=== PATIENT | female | born 1930 | race Caucasian/White ===

== ENCOUNTER 2017-09-22 10:40 | Emergency (ER) | payer MEDICARE ==
[2017-09-22 11:18] VITALS: BP 140/63
--- NOTE | 2017-09-22 12:12 | UC ---
Lower Extremity/Ankle HPI - HPI Summary HPI Summary: hit right great toe on a door 2 nights ago---nail is begining to lift off and some additional erythema from end of toe and back to first joint--tender to touch no warmth or streaking - History of Current Complaint Chief Complaint: UCLowerExtremity Stated Complaint: TOE INJURY Time Seen by Provider: 09/22/17 11:43 Hx Obtained From: Patient ?: No Onset/Duration: Sudden Onset, Lasting Days - 2, Still Present Severity Initially: Moderate Severity Currently: Moderate Pain Intensity: 5 Pain Scale Used: 0-10 Numeric Aggravating Factor(s): Standing, Ambulation Alleviating Factor(s): Rest, Elevation Able to Bear Weight: Yes - Allergies/Home Medications Allergies/Adverse Reactions: Allergies Allergy/AdvReac Type Severity Reaction Status Date / Time Penicillins Allergy Mild Hives Verified 09/22/17 11:18 Cephalexin [From Keflex] Allergy Unknown Unknown Verified 09/22/17 11:18 Reaction Details Lisinopril Allergy Shortness Verified 09/22/17 11:18 of Breath Sulfa Drugs AdvReac Severe CHEST PAIN Verified 09/22/17 11:18 metal Allergy Intermediate Rash Uncoded 09/22/17 11:18 nylon Allergy Mild Rash Uncoded 09/22/17 11:18 tape Allergy Mild Rash Uncoded 09/22/17 11:18 PMH/Surg Hx/FS Hx/Imm Hx Previously Healthy: No Cardiovascular History: Hypertension - Surgical History Surgical History: Yes Surgery Procedure, Year, and Place: 1946 APPENDECTOMY, [facility]. 1968 HYSTERECTOMY, [facility]. CHOLECYSTECTOMY, [facility] [place]. 2008 BILATERAL CATARACT EXTRACTION WITH IOL IMPLANTS, [facility] [place]. left rotator cuff repair 2011. 2011 LEFT SHOULDER ROTATOR CUFF REPAIR, [facility] [place]. LASER SURGERY BILATERAL EYES. 2009 EXCISION RIGHT LITTLE FINGER MUCOUS CYST, [facility] [place]. Growth removed from upper lip - Family History Known Family History: Positive: Hypertension - Social History Occupation: Retired Lives: With Family Alcohol Use: None Substance Use Type: None Smoking Status (MU): Never Smoked Tobacco Review of Systems Constitutional: Negative Skin: Other - blood blister tip of right great toe Eyes: Negative ENT: Negative Respiratory: Negative Cardiovascular: Negative Gastrointestinal: Negative Genitourinary: Negative Motor: Negative Neurovascular: Negative Musculoskeletal: Arthralgia - right great toe Neurological: Negative Psychological: Negative Is Patient Immunocompromised?: No All Other Systems Reviewed And Are Negative: Yes Physical Exam Triage Information Reviewed: Yes Appearance: Well-Appearing, No Pain Distress, Well-Nourished Vital Signs: Initial Vital Signs Temp 97.7 F 09/22/17 11:10 Pulse 71 09/22/17 11:10 Resp 18 09/22/17 11:10 BP 140/63 09/22/17 11:10 Pulse Ox 99 09/22/17 11:10 Vital Signs Reviewed: Yes Eye Exam: Normal Eyes: Positive: Conjunctiva Clear ENT Exam: Normal ENT: Positive: Normal ENT inspection, Hearing grossly normal, Pharynx normal. Negative: Nasal drainage, TMs normal, Tonsillar swelling, Trismus, Hoarse voice , Dental tenderness, Sinus tenderness Dental Exam: Normal Neck exam: Normal Neck: Positive: Supple, Nontender, No Lymphadenopathy Respiratory Exam: Normal Respiratory: Positive: Chest non-tender, Lungs clear, Normal breath sounds, No respiratory distress, No accessory muscle use Cardiovascular Exam: Normal Cardiovascular: Positive: RRR, No Murmur, Pulses Normal, Brisk Capillary Refill Musculoskeletal Exam: Normal Musculoskeletal: Positive: Strength Intact, ROM Intact, No Edema Neurological Exam: Normal Neurological: Positive: Alert, Muscle Tone Normal Psychological Exam: Normal Skin Exam: Normal Diagnostics - Radiology No standard instances Xray Interpretation: Positive (See Comments) - no displaced fracture of distal phlange right great toe Radiology Interpretation Completed By: Radiologist Lower Extremity Course/Dx - Course Course Of Treatment: post op shoe (patient refused) antibiodic,ibuprofen, dressing , follow with pcp - Differential Dx/Diagnosis Provider Diagnoses: Nondisplaced fracture distal phalange right great toe, blood blister right great toe Discharge - Discharge Plan Condition: Stable Disposition: HOME Prescriptions: Doxycycline (Monohydrate) [Doxycycline Monohydrate] 100 mg PO BID #20 cap Patient Education Materials: Toe Fracture (ED), Hypertension (ED), Nail Avulsion (ED), Warm Compress or Soak (ED) Referrals: Stephanie Maier MD [Primary Care Provider] - 1 Week
--- NOTE | 2017-09-22 12:31 | RAD ---
Indication: Right great toe injury. 3 views of the right great toe demonstrates suggestion of a nondisplaced fracture through the distal phalanx of the great toe. The proximal phalanx is unremarkable. IMPRESSION: There is suggestion of a fracture of the distal a length of the great toe.
== END 2017-09-22 12:58 | disposition home or self-care (01) ==
LOC: UCEAST 10:40
DX: S92.424A Nondisplaced fracture of distal phalanx of right great toe, initial encounter for closed fracture (principal); S90.421A Blister (nonthermal), right great toe, initial encounter; W22.09XA Striking against other stationary object, initial encounter; Y93.01 Activity, walking, marching and hiking; Y92.9 Unspecified place or not applicable
CPT/HCPCS: 99212; G0463

== ENCOUNTER 2019-02-12 09:49 | Inpatient (IN) | payer MEDICARE ==
--- NOTE | 2019-01-30 16:56 | HP ---
Amended report to enter cosigning physician. HISTORY AND PHYSICAL: DATE OF ADMISSION/SURGERY: 02/12/19 DATE OF OFFICE VISIT: 01/30/19 SURGEON: Swati Mckeon MD* (dictated by RIGO García). PROCEDURE: Left total hip arthroplasty. CHIEF COMPLAINT: Left hip pain. HISTORY OF PRESENT ILLNESS: Ms. Brady is an 89-year-old female with end-stage osteoarthritis of the left hip. She has failed conservative treatment and elected to proceed with a left total hip arthroplasty. PAST MEDICAL HISTORY: Macular degeneration, heart murmur, and a history of stroke. PAST SURGICAL HISTORY: Appendectomy, hysterectomy, cholecystectomy, and a left rotator cuff repair. CURRENT MEDICATIONS: 1. Aspirin 81 mg a day. 2. Calcium with vitamin D. 3. Travatan eye drops once a day. 4. Women's vitamins. 5. Vitamin B12. 6. Eylea injections. 7. Tylenol as needed. 8. Fiber therapy. 9. Proctosol. 10. Crestor 40 mg a day. 11. Diltiazem 120 mg a day. ALLERGIES: PENICILLIN, SULFA, KEFLEX, LISINOPRIL, METAXALONE, LATEX, TAPE. FAMILY HISTORY: Coronary artery disease, cancer, and diabetes. SOCIAL HISTORY: She is an 89-year-old female. She lives alone. She does not smoke or use drugs. REVIEW OF SYSTEMS: A complete 14-point review of systems was reviewed with the patient. It was positive for history of stroke. She denies history of DVT, PE , hepatitis, HIV, or anesthesia problems. PHYSICAL EXAMINATION GENERAL: She is well developed, well nourished, in no acute distress. VITAL SIGNS: She stands 5 feet 3 inches tall, weighs 144 pounds. Her blood pressure is 117/57, her heart rate is 73. HEENT: Normocephalic, atraumatic. NECK: Supple. No palpable lymph nodes. PULMONARY: The lungs are clear to auscultation bilaterally. CARDIO: Regular rate and rhythm. Strong S1, S2. ABDOMEN: Soft, nontender, nondistended. NEUROLOGICAL: She is alert and oriented x3. MUSCULOSKELETAL: Left lower extremity: The skin is intact. There are no open wounds or abrasions. She walks with an antalgic-type gait favoring her left hip. She has decreased internal and external rotation of the left hip. She has a 2+ dorsalis pedis pulse. She is able to dorsiflex and plantar flex and has intact sensation. ASSESSMENT AND PLAN: Ms. Brady is an 89-year-old female with end-stage osteoarthritis of the left hip. She has failed conservative treatment and elected to proceed with a left total hip arthroplasty. The surgery is scheduled for 02/12/[address] Mckeon discussed the risks and benefits of the surgery at today's visit and all of her questions were answered. No TXA will be used in this patient secondary to her history of stroke. RIGO GARCÍA [id number]/[facility] #: [id number] MTDSara
[~2019-02-12 09:49] MED LIST: Acetaminophen TAB* 325 MG PO ONE; Buffered Lidocaine 1% SYRIN* 1 ML/SYRINGE INTRADERM ONE; Famotidine IV* 10 MG/ML 2 ML (20 mg) IV ONE; Lactated Ringers 1000 ML Bag* 1,000 ML IV SCH
--- OUTSIDE RECORDS SUMMARY | 2019-02-12 09:54 | XMS REPORT | Continuity of Care Document ---
:1930 External Reference #:[id number] Author Name Allison Carpenter Care Team Providers Name Role Phone Stephanie Maier MD Primary Care Physician Unavailable Payers Date Identification Numbers Payment Provider Subscriber Effective: 2012 Policy Number: [id number] Medicare Blue Ppo Tiarra Sterling Group Number: [id number] [address] [address] PayID: [id number] [place] [id number] Expires: 2012 Policy Number: [id number] Medicare Blue Ppo Tiarra Sterling Group Number: MEDICARE BLUE PPO [address] [address] Group Name: Plan Two [place] [id number] PayID: [id number] Problems Active Problems Provider Date Benign essential hypertension Stephanie Maier M.D. Onset: 09/01/2010 Cerebral artery occlusion Stephanie Maier M.D. Onset: 09/01/2010 Localized, primary osteoarthritis Swati Mckeon M.D. Onset: 12/14/2015 Localized, primary osteoarthritis of the Swati Mckeon M.D. Onset: 12/14/2015 pelvic region and thigh Family History Date Family Member(s) Observation Comments General Heart Disease General Diabetes General Cancer General Alzheimer's Disease : (age 85 Father due to Cancer, Years) Lung : (age 93 Mother due to Years) Alzheimer's Disease First Brother due to Heart () Disease Second Brother due to Melanoma () - CAD Third Brother due to () - of Alzheimer's Disease pneumonia First Sister Breast Cancer : (age 85 Second Sister due to COPD Years) Third Sister Alive And Well Social History Type Date Description Comments Sex Unknown Marital Status Single First killed in 1970, remarried but in 1984 Lives With Alone Drives without problems. Worked at [employer] in 2009. 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 son: Cody Sterling Tobacco Use Start: Unknown Never Smoked Cigarettes ETOH Use Denies alcohol use Tobacco Use Start: Unknown Patient has never smoked Recreational Drug Use Denies Drug Use Smoking Status Reviewed: 01/31/19 Patient has never smoked Exercise Type/Frequency Exercises sporadically Allergies, Adverse Reactions, Alerts Active Allergies Reaction Severity Comments Date Penicillin HIVES Severe 10/30/2009 Sulfa CHEST PAIN Severe 10/30/2009 Keflex RASH Severe 10/30/2009 Lisinopril cough 06/19/2012 Metaxalone dizzy 02/19/2014 Latex/Tape 09/10/2018 Medications Active Medications SIG Qnty Indications Ordering Provider Date Vit B12 3 x wk Stephanie Maier, 12/20/2012 M.DCuauhtemoc Diltiazem HCL ER take one capsule 90caps R06.02 Stephanie Maier, 2011 Coated Beads by mouth once M.D. 120mg daily Caps ER 24HR Crestor Take One Tablet 90tabs Stephanie Maier, 01/01/2012 40mg Tablets By Mouth Once M.D. Daily Aspirin 1 by mouth once Stephanie Maier, 04/29/2010 81mg Tablets daily M.DCuauhtemoc [place] 600+D 1 by mouth once Stephanie Maier, 04/29/2010 daily M.D. [id number] Tablets Proctosol HC Use as directed 28.350gm Stephanie Maier, 03/01/2010 2.5% prn M.D. Cream Eq Fiber Therapy 2 in in the Unknown morning 500mg Tablets Tylenol 8 Hour 1 tab every 6 Unknown 650mg hours as needed Tablets ER for pain Eylea prn Unknown 2mg/0.05ML Solution Eye Vitamins daily Unknown Capsules One Daily For Women 1 po qd Unknown Tablets Travatan each eye nightly Unknown 0.004% Solution History Medications Tramadol HCL 1-2 tablets every 42tabs M54.9 [facility] 05/15/2018 - 50mg 6 hours as needed Katie Maier 09/09/2018 Tablets Doxycycline Hyclate one tablet twice 20caps J01.00 Chris Pereyra NP 2015 - daily for 10 07/15/2016 100mg Capsules days. Fluticasone 2 sprays each 16units J01.00 Chris Pereyra NP 07/04/2016 - Propionate nostril daily as 11/12/2018 50mcg/Act needed-not using Suspension Benzonatate take one or two 30caps J01.00 Chris Pereyra NP 07/04/2016 - 100mg capsules every 8 07/11/2016 Capsules hours as needed for cough. Levaquin 1 by mouth daily 10tabs J01.00 Starr Tian, 03/16/2016 - 500mg for 10 days N.P. 03/26/2016 Tablets Fluticasone 2 sprays each 16units J01.00 Starr Tian, 02/29/2016 - Propionate nostril daily as N.P. 03/15/2016 50mcg/Act needed Suspension Azithromycin two tabs day one, 6tabs J01.00 Starr Tian, 02/29/2016 - 250mg one daily till N.P. 03/05/2016 Tablets gone Meloxicam 1 by mouth every 60tabs M16.11 Swati Mckeon, 12/14/2015 - 15mg day M.DCuauhtemoc 02/23/2017 Tablets Lorazepam 1-2 tabs by mouth 5tabs Stephanie 09/08/2015 - 0.5mg prior to Katie Maier 12/13/2015 Tablets procedure Omeprazole 1 by mouth as 30caps R14.2 Chris Pereyra NP 08/24/2015 - 20mg needed 03/08/[address] Molina 1 by mouth every 30tabs Starr Tian, 11/17/2014 - 10mg Tablets day N.P. 01/14/2015 Ditropan XL 1 by mouth every 30tabs 788.43 Starr Tian, 11/05/2014 - 10mg day N.P. 11/17/2014 Tablets ER 24HR Metaxalone take 1 tablet 3 30tabs 724.5 Starr Tian, 2014 - 800mg times a day as N.P. 2014 Tablets needed Tizanidine HCL One po q 4 hours 30caps Starr Asmita, 2014 - 4mg prn N.P. 02/04/2014 Capsules Zolpidem Tartrate 1/2-1 po tablet 30tabs 780.52 [facility] 06/20/2013 - 5mg at bedtime as Katie Maier 2014 Tablets needed Zostavax 1 dose s/c 1units [facility] 03/28/2012 - Solution Katie Maier 06/18/2012 Rec Diltiazem HCL ER Take One Capsule 30caps 786.05 [facility] 02/13/2012 - By Mouth Once Katie Maier 06/19/2012 180mg Caps ER 24HR Daily Atorvastatin Calcium 1 po qd 90tabs [facility] 09/21/2011 - Katie Maier 01/01/2012 40mg Tablets Diltiazem CD 1 PO qd 30caps 786.05 [facility] 05/17/2011 - 180mg Katie Maier 02/13/2012 Caps ER 24HR Lisinopril 1 tablet once 30tabs 786.05 Stephanie - 10mg daily Katie Maier 05/17/2011 Tablets Cipro 1 tablet twice a 20tabs Unknown - 500mg Tablets day 10/28/2010 Crestor Take One Tablet 30tabs [facility] - 40mg Tablets By Mouth AT Katie Maier 09/21/2011 Bedtime Aleve 1 po prn 60caps Unknown - 220mg Capsules 06/19/2012 Flonase Allergy 2 sprays each Unknown - Relief nostril once 08/24/2015 50mcg/Act daily Suspension Medications Administered in Office Medication SIG Qnty Indications Ordering Provider Date Depomedrol 40MG Swati Mckeon M.D. 11/19/2018 Injection Inj, Regadenoson, 0.1 MG Deshawn Zhou DO [facility] 09/11/2015 Injection Inj, Regadenoson, 0.1 MG RIGO Hooker 09/11/2015 Injection Technetium TC 99M Deshawn Zhou DO [facility] 09/11/2015 Tetrofosmin, Per Unit Dose Up To 40 Millicuries Injection Technetium TC 99M RIGO Hooker 09/11/2015 Tetrofosmin, Per Unit Dose Up To 40 Millicuries Injection Immunizations CPT Code Status Date Vaccine Lot # [id number] Given 06/05/2018 Influenza Virus Vaccine, Quadrivalent, Split, Preservative Free 62071 Given 05/11/2017 Influenza Virus Vaccine, Quadrivalent, Split, [id number] Preservative Free 96669 Given 06/17/2016 Influ Virus Vaccine, Quadrivalent, Split Virus, [id number] [address] Given 06/13/2015 Influenza Virus Vaccine, Quadrivalent, Split, [id number] Preservative Free 72505 Given 02/24/2015 Pneumococcal Conjugate Vaccine 13 Valent For [id number] Intramuscular Use 65507 Given 06/17/2014 Influenza Virus Vaccine, Quadrivalent, Split, [id number] Preservative Free 68459 Given 06/20/2013 Flu Vaccine Split Virus Preservative Free For [id number] Indiv 3Yr Older [id number] Given 05/30/2012 Fluzone Vaccine 65408 Given 03/29/2012 Zoster (Zostavax) [id number] Given 05/17/2011 Afluria Vaccine [id number] 08663 Given 07/09/2010 Influenza Virus 3Yrs & Over [id number] 57125 Given 04/27/2009 Influenza Virus 3Yrs & Over 40531 Given 06/25/2008 Influenza Virus 3Yrs & Over 73297 Given 06/25/2008 Influenza Virus 3Yrs & Over 65807 Given 06/28/2007 Influenza Virus 3Yrs & Over Vital Signs Date Vital Result Comment 01/31/2019 8:40am Height 63 inches 5'3" Weight 144.00 lb Heart Rate 73 /min BP Systolic Sitting 133 mmHg BP Diastolic Sitting 66 mmHg O2 % BldC Oximetry 97 % BMI (Body Mass Index) 25.5 kg/m2 01/30/2019 9:00am Height 63 inches 5'3" Weight 144.00 lb Heart Rate 73 /min BP Systolic 116 mmHg BP Diastolic 57 mmHg Body Temperature 97.7 F BMI (Body Mass Index) 25.5 kg/m2 2019 2:55pm Height 63 inches 5'3" Weight 144.00 lb with shoes Heart Rate 70 /min BP Systolic 140 mmHg Rue reg cuff BP Diastolic 60 mmHg Rue reg cuff BP Systolic Sitting 134 mmHg Lue reg cuff BP Diastolic Sitting 62 mmHg Lue reg cuff BP Systolic Standing 132 mmHg Lue reg cuff BP Diastolic Standing 60 mmHg Lue reg cuff Respiratory Rate 15 /min BMI (Body Mass Index) 25.5 kg/m2 Ejection Fraction 65-70% date 12/20/18 ECHO 12/05/2018 11:14am Height 63 inches 5'3" Heart Rate 66 /min BP Systolic Sitting 150 mmHg BP Diastolic Sitting 66 mmHg Pain Level 5 O2 % BldC Oximetry 95 % 11/19/2018 2:47pm Height 63 inches 5'3" Weight 145.00 lb BP Systolic 132 mmHg BP Diastolic 60 mmHg Body Temperature 98.2 F Pain Level 6 BMI (Body Mass Index) 25.7 kg/m2 11/12/2018 2:38pm Height 62.5 inches 5'2.50" Weight 142.38 lb Heart Rate 76 /min BP Systolic 132 mmHg BP Diastolic 65 mmHg Body Temperature 97.9 F O2 % BldC Oximetry 97 % BMI (Body Mass Index) 25.6 kg/m2 09/10/2018 1:40pm Height 62.5 inches 5'2.50" Weight 145.00 lb Heart Rate 76 /min BP Systolic 130 mmHg BP Diastolic 76 mmHg BMI (Body Mass Index) 26.1 kg/m2 08/23/2018 8:52am Height 63 inches 5'3" Weight 143.00 lb Heart Rate 80 /min BP Systolic 124 mmHg BP Diastolic 70 mmHg BP Systolic Sitting 147 mmHg BP Diastolic Sitting 70 mmHg O2 % BldC Oximetry 98 % BMI (Body Mass Index) 25.3 kg/m2 05/15/2018 3:36pm Height 63 inches 5'3" Weight 143.00 lb Heart Rate 67 /min BP Systolic Sitting 135 mmHg BP Diastolic Sitting 67 mmHg O2 % BldC Oximetry 96 % BMI (Body Mass Index) 25.3 kg/m2 01/09/2018 9:42am Height 63 inches 5'3" Weight 145.00 lb Heart Rate 73 /min BP Systolic Sitting 128 mmHg BP Diastolic Sitting 65 mmHg Body Temperature 98.1 F O2 % BldC Oximetry 97 % BMI (Body Mass Index) 25.7 kg/m2 11/09/2017 10:33am Weight 146.25 lb Heart Rate 81 /min BP Systolic Sitting 110 mmHg BP Diastolic Sitting 68 mmHg Body Temperature 99.7 F O2 % BldC Oximetry 95 % 05/11/2017 10:49am Height 63 inches 5'3" Weight 146.50 lb Heart Rate 68 /min BP Systolic 140 mmHg BP Diastolic 80 mmHg Body Temperature 98.1 F O2 % BldC Oximetry 97 % BMI (Body Mass Index) 25.9 kg/m2 02/23/2017 9:44am Weight 145.00 lb Heart Rate 80 /min BP Systolic Sitting 140 mmHg BP Diastolic Sitting 70 mmHg Respiratory Rate 16 /min O2 % BldC Oximetry 98 % 08/25/2016 9:55am Weight 146.00 lb Heart Rate 70 /min BP Systolic 122 mmHg BP Diastolic 74 mmHg Respiratory Rate 15 /min Body Temperature 98.0 F O2 % BldC Oximetry 98 % 07/04/2016 10:28am Heart Rate 84 /min BP Systolic Sitting 138 mmHg BP Diastolic Sitting 80 mmHg Respiratory Rate 14 /min Body Temperature 98.1 F O2 % BldC Oximetry 98 % 03/16/2016 4:23pm Weight 143.00 lb with shoes Heart Rate 68 /min BP Systolic Sitting 140 mmHg BP Diastolic Sitting 70 mmHg Body Temperature 98.2 F O2 % BldC Oximetry 98 % 03/08/2016 2:43pm Height 62 inches 5'2" Weight 146.00 lb Heart Rate 76 /min BP Systolic Sitting 120 mmHg BP Diastolic Sitting 72 mmHg Respiratory Rate 15 /min Body Temperature 97.8 F O2 % BldC Oximetry 97 % BMI (Body Mass Index) 26.7 kg/m2 02/29/2016 4:21pm Heart Rate 77 /min BP Systolic Sitting 140 mmHg BP Diastolic Sitting 70 mmHg Body Temperature 98.8 F O2 % BldC Oximetry 97 % 12/14/2015 2:01pm Height 63 inches 5'3" Weight 145.00 lb Heart Rate 72 /min BP Systolic 137 mmHg BP Diastolic 69 mmHg BMI (Body Mass Index) 25.7 kg/m2 12/07/2015 2:25pm Heart Rate 70 /min BP Systolic Sitting 133 mmHg BP Diastolic Sitting 73 mmHg Body Temperature 98.4 F Pain Level 4 O2 % BldC Oximetry 97 % 09/01/2015 9:31am Height 63 inches 5'3" Weight 148.00 lb Heart Rate 70 /min BP Systolic Sitting 128 mmHg BP Diastolic Sitting 82 mmHg Respiratory Rate 15 /min Body Temperature 98.5 F O2 % BldC Oximetry 98 % BMI (Body Mass Index) 26.2 kg/m2 08/24/2015 10:39am Weight 148.00 lb Heart Rate 66 /min BP Systolic Sitting 122 mmHg BP Diastolic Sitting 68 mmHg Respiratory Rate 14 /min Body Temperature 98.8 F O2 % BldC Oximetry 98 % 06/13/2015 10:03am Body Temperature 97.1 F 02/24/2015 3:47pm Weight 145.75 lb Heart Rate 72 /min BP Systolic Sitting 154 mmHg BP Diastolic Sitting 79 mmHg 01/29/2015 10:00am Weight 148.00 lb Heart Rate 71 /min BP Systolic Sitting 125 mmHg BP Diastolic Sitting 70 mmHg Body Temperature 97.7 F 01/15/2015 8:44am Weight 145.75 lb Heart Rate 77 /min BP Systolic Sitting 134 mmHg BP Diastolic Sitting 68 mmHg Body Temperature 97.7 F O2 % BldC Oximetry 98 % 11/05/2014 12:56pm Height 63 inches 5'3" Weight 150.00 lb Heart Rate 74 /min BP Systolic 139 mmHg BP Diastolic 64 mmHg Body Temperature 98.3 F BMI (Body Mass Index) 26.6 kg/m2 07/22/2014 10:00am Height 63 inches 5'3" Weight 148.50 lb Heart Rate 83 /min BP Systolic Sitting 120 mmHg BP Diastolic Sitting 60 mmHg Body Temperature 97.3 F O2 % BldC Oximetry 96 % BMI (Body Mass Index) 26.3 kg/m2 02/19/2014 12:56pm Height 63 inches 5'3" Weight 148.00 lb Heart Rate 76 /min BP Systolic Sitting 118 mmHg BP Diastolic Sitting 62 mmHg Body Temperature 98.3 F BMI (Body Mass Index) 26.2 kg/m2 2014 11:40am Weight 147.50 lb Heart Rate 76 /min BP Systolic 144 mmHg BP Diastolic 76 mmHg Respiratory Rate 16 /min Body Temperature 98.3 F 06/20/2013 12:59pm Weight 147.00 lb Heart Rate 72 /min BP Systolic 122 mmHg BP Diastolic 62 mmHg 03/28/2013 4:16pm Height 62 inches 5'2" Weight 144.50 lb Heart Rate 84 /min BP Systolic Sitting 110 mmHg BP Diastolic Sitting 60 mmHg Body Temperature 98.1 F BMI (Body Mass Index) 26.4 kg/m2 12/20/2012 2:28pm Height 62.5 inches 5'2.50" Weight 146.00 lb Heart Rate 72 /min BP Systolic Sitting 130 mmHg BP Diastolic Sitting 60 mmHg BMI (Body Mass Index) 26.3 kg/m2 08/02/2012 9:37am Height 63.5 inches 5'3.50" Weight 146.00 lb Heart Rate 78 /min BP Systolic Sitting 126 mmHg BP Diastolic Sitting 68 mmHg BMI (Body Mass Index) 25.5 kg/m2 06/19/2012 9:54am Height 63.5 inches 5'3.50" Weight 146.00 lb Heart Rate 72 /min BP Systolic Sitting 120 mmHg BP Diastolic Sitting 62 mmHg BMI (Body Mass Index) 25.5 kg/m2 12/20/2011 10:27am Height 63.5 inches 5'3.50" Weight 144.50 lb Heart Rate 60 /min BP Systolic Sitting 130 mmHg BP Diastolic Sitting 82 mmHg BMI (Body Mass Index) 25.2 kg/m2 10/11/2011 11:27am Height 63.5 inches 5'3.50" Weight 142.00 lb Heart Rate 76 /min BP Systolic Sitting 126 mmHg BP Diastolic Sitting 62 mmHg BMI (Body Mass Index) 24.8 kg/m2 05/17/2011 1:24pm Height 63.5 inches 5'3.50" Weight 140.00 lb Heart Rate 68 /min BP Systolic Sitting 134 mmHg BP Diastolic Sitting 52 mmHg O2 % BldC Oximetry 97 % BMI (Body Mass Index) 24.4 kg/m2 04/28/2011 10:03am Height 63.5 inches 5'3.50" Weight 140.00 lb Heart Rate 64 /min BP Systolic Sitting 110 mmHg BP Diastolic Sitting 76 mmHg BMI (Body Mass Index) 24.4 kg/m2 03/24/2011 11:06am Height 63.5 inches 5'3.50" Weight 139.00 lb Heart Rate 68 /min BP Systolic Sitting 104 mmHg BP Diastolic Sitting 78 mmHg BMI (Body Mass Index) 24.2 kg/m2 10/28/2010 10:33am Weight 140.00 lb Heart Rate 70 /min BP Systolic 130 mmHg BP Diastolic 60 mmHg 09/09/2010 11:35am Weight 139.00 lb Heart Rate 60 /min BP Systolic 126 mmHg BP Diastolic 60 mmHg Body Temperature 98.7 F O2 % BldC Oximetry 98 % 04/29/2010 7:38pm Height 62.5 inches 5'2.50" Weight 142.75 lb Heart Rate 68 /min BP Systolic 132 mmHg BP Diastolic 70 mmHg BMI (Body Mass Index) 25.7 kg/m2 Results Test Date Facility Test Result H/L Range Note Urinalysis Profile 01/30/2019 [facility] Urine Color Yellow [address] [place] [address] [phone] Urine Appearance Cloudy Urine Specific [place] 1.013 N 1.010-1.030 Urine pH 7.0 N 5-9 Urine Urobilinogen Negative Negative Urine Ketones Negative Negative Urine Protein Negative Negative Urine Leukocytes Trace Abnormal Negative Urine Blood Negative Negative * * Abnormal Negative 1 Urine Nitrite Negative Negative Urine Bilirubin Negative Negative Urine Glucose Negative Negative Urine White Blood Cell Trace(0-5/hpf) Absent Urine Red Blood Cell Trace(0-2/hpf) Absent Urine Bacteria Absent Absent Urine Squamous Epithelial Cell Present Abnormal Absent CBC Auto Diff 01/30/2019 [facility] White Blood 6.9 10^3/uL N 3.5-10.[address] [place] [address] [phone] Red Blood Count 4.12 10^6/uL N 3.70-4.87 Hemoglobin 12.7 g/dL N 12.0-16.0 Hematocrit 38 % N 35-47 Mean Corpuscular Volume 93 fL N 80-97 Mean Corpuscular Hemoglobin 31 pg N 27-31 Mean Corpuscular HGB Conc 33 g/dL N 31-36 Red Cell Distribution Width 16 % High 10.5-15 Platelet Count 245 10^3/uL N 150-450 Mean Platelet Volume 8.4 fL N 7.4-10.4 Abs Neutrophils 4.2 10^3/uL N 1.5-7.7 Abs Lymphocytes 2.1 10^3/uL N 1.0-4.8 Abs Monocytes 0.5 10^3/uL N 0-0.8 Abs Eosinophils 0.1 10^3/uL N 0-0.6 Abs Basophils 0.0 10^3/uL N 0-0.2 Abs Nucleated RBC 0.0 10^3/uL Granulocyte % 60.4 % Lymphocyte % 29.6 % Monocyte % 7.6 % Eosinophil % 1.9 % Basophil % 0.5 % Nucleated Red Blood Cells % 0.0 Inr/Protime 01/30/2019 [facility] Inr 0.93 N 0.82-1.[address] [place] [address] [phone] Laboratory test 01/30/2019 [facility] Partial 32.6 seconds N 26.0-38.[address] [place] [address] PTT [phone] Type & Screen 01/30/2019 [facility] Patient A Positive [address] [place] [place] [address] [phone] Antibody Screen NEGATIVE Lipid Profile 01/15/2019 [facility] Triglycerides 132 mg/dL 3 (Trig/Chol/HDL) [address] [place] [address] [phone] Cholesterol 143 mg/dL 4 HDL Cholesterol 46.8 mg/dL 5 LDL Cholesterol 70 mg/dL 6 Comp Metabolic Panel 01/15/2019 [facility] Sodium 141 mmol/L N 135-[address] [place] [address] [phone] Potassium 4.1 mmol/L N 3.5-5.0 Chloride 105 mmol/L N 101-111 Co2 Carbon Dioxide 30 mmol/L N 22-32 Anion Gap 6 mmol/L N 2-11 Glucose 94 mg/dL N 70-100 Blood Urea Nitrogen 12 mg/dL N 6-24 Creatinine 0.66 mg/dL N 0.51-0.95 BUN/Creatinine Ratio 18.2 N 8-20 Calcium 9.3 mg/dL N 8.6-10.3 Total Protein 6.3 g/dL Low 6.4-8.9 Albumin 3.9 g/dL N 3.2-5.2 Globulin 2.4 g/dL N 2-4 Albumin/Globulin Ratio 1.6 N 1-3 Total Bilirubin 0.50 mg/dL N 0.2-1.0 Alkaline Phosphatase 73 U/L N 34-104 Alt 24 U/L N 7-52 Ast 23 U/L N 13-39 Egfr Non- 84.5 >60 Egfr 102.3 >60 7 Xray 11/19/2018 [facility] Inj/Aspir Major <pending> JT Or Bursa W/ US Comp Metabolic 01/09/2018 [facility] Sodium 139 mmol/L N 139- [address] [place] [address] [phone] Potassium 4.5 mmol/L N 3.5-5.0 Chloride 105 mmol/L N 101-111 Co2 Carbon Dioxide 27 mmol/L N 22-32 Anion Gap 7 mmol/L N 2-11 Glucose 87 mg/dL N 70-100 Blood Urea Nitrogen 14 mg/dL N 6-24 Creatinine 0.64 mg/dL N 0.51-0.95 BUN/Creatinine Ratio 21.9 High 8-20 Calcium 9.6 mg/dL N 8.6-10.3 Total Protein 6.2 g/dL Low 6.4-8.9 Albumin 3.9 g/dL N 3.2-5.2 Globulin 2.3 g/dL N 2-4 Albumin/Globulin Ratio 1.7 N 1-3 Total Bilirubin 0.40 mg/dL N 0.2-1.0 Alkaline Phosphatase 56 U/L N 34-104 Alt 22 U/L N 7-52 Ast 21 U/L N 13-39 Egfr Non- 87.8 >60 Egfr 112.9 >60 8 Lipid Profile 01/09/2018 [facility] Triglycerides 169 mg/dL 9 (Trig/Chol/HDL) [address] [place] [address] [phone] Cholesterol 140 mg/dL 10 HDL Cholesterol 42.0 mg/dL 11 LDL Cholesterol 64 mg/dL 12 Laboratory test 01/09/2018 [facility] Erythrocyte Sed 15 mm/Hr N 0-[address] [place] [address] [phone] Protein 01/09/2018 [facility] Total 6.7 g/dL 6.3 - Electrophoresis [address] Protein(Pep) 7.9 [place] [address] [phone] Albumin 3.2 g/dL Abnormal 3.4-4.7 Alpha-1 Globulin 0.2 g/dL 0.1-0.3 Alpha-2 Globulin 1.2 g/dL Abnormal 0.6-1.0 Beta Globulin 1.2 g/dL 0.7-1.2 Gamma Globulin 0.9 g/dL 0.6-1.6 Albumin/Globulin Ratio 0.93 Impression See Comment 13 CBC Auto Diff 01/09/2018 [facility] White Blood 8.2 10^3/uL N 3.5-10.[address] [place] [address] [phone] Red Blood Count 4.11 10^6/uL N 4.0-5.4 Hemoglobin 12.8 g/dL N 12.0-16.0 Hematocrit 39 % N 35-47 Mean Corpuscular Volume 95 fL N 80-97 Mean Corpuscular Hemoglobin 31 pg N 27-31 Mean Corpuscular HGB Conc 33 g/dL N 31-36 Red Cell Distribution Width 15 % N 10.5-15 Platelet Count 244 10^3/uL N 150-450 Mean Platelet Volume 9.2 um3 N 7.4-10.4 Abs Neutrophils 5.3 10^3/uL N 1.5-7.7 Abs Lymphocytes 2.1 10^3/uL N 1.0-4.8 Abs Monocytes 0.7 10^3/uL N 0-0.8 Abs Eosinophils 0.1 10^3/uL N 0-0.6 Abs Basophils 0.1 10^3/uL N 0-0.2 Abs Nucleated RBC 0 10^3/uL Granulocyte % 64.2 % N 38-83 Lymphocyte % 25.5 % N 25-47 Monocyte % 8.1 % High 0-7 Eosinophil % 1.5 % N 0-6 Basophil % 0.7 % N 0-2 Nucleated Red Blood Cells % 0 Lipid Profile 02/28/2017 [facility] Triglycerides 159 mg/dL N 14 (Trig/Chol/HDL) [address] [place] [address] [phone] Cholesterol 140 mg/dL N 15 HDL Cholesterol 39.3 mg/dL N 16 LDL Cholesterol 69 mg/dL N 17 Comp Metabolic Panel 02/28/2017 [facility] Sodium 138 mmol/L N 133-145 [address] [place] [address] [phone] Potassium 4.1 mmol/L N 3.5-5.0 Chloride 107 mmol/L N 101-111 Co2 Carbon Dioxide 29 mmol/L N 22-32 Anion Gap 2 mmol/L N 2-11 Glucose 92 mg/dL N 70-100 Blood Urea Nitrogen 15 mg/dL N 6-24 Creatinine 0.62 mg/dL N 0.51-0.95 BUN/Creatinine Ratio 24.2 High 8-20 Calcium 9.1 mg/dL N 8.6-10.3 Total Protein 6.2 g/dL Low 6.4-8.9 Albumin 3.8 g/dL N 3.2-5.2 Globulin 2.4 g/dL N 2-4 Albumin/Globulin Ratio 1.6 N 1-3 Total Bilirubin 0.50 mg/dL N 0.2-1.0 Alkaline Phosphatase 58 U/L N 34-104 Alt 22 U/L N 7-52 Ast 20 U/L N 13-39 Egfr Non- 91.1 N >60 Egfr 117.1 N >60 18 CBC Auto Diff 02/28/2017 [facility] White Blood 7.1 10^3/uL N 3.5-10.[address] [place] [address] [phone] Red Blood Count 4.19 10^6/uL N 4.0-5.4 Hemoglobin 13.1 g/dL N 12.0-16.0 Hematocrit 40 % N 35-47 Mean Corpuscular Volume 96 fL N 80-97 Mean Corpuscular Hemoglobin 31 pg N 27-31 Mean Corpuscular HGB Conc 33 g/dL N 31-36 Red Cell Distribution Width 15 % N 10.5-15 Platelet Count 229 10^3/uL N 150-450 Mean Platelet Volume 9 um3 N 7.4-10.4 Abs Neutrophils 4.3 10^3/uL N 1.5-7.7 Abs Lymphocytes 2.0 10^3/uL N 1.0-4.8 Abs Monocytes 0.6 10^3/uL N 0-0.8 Abs Eosinophils 0.1 10^3/uL N 0-0.6 Abs Basophils 0.1 10^3/uL N 0-0.2 Abs Nucleated RBC 0 10^3/uL N Granulocyte % 61.0 % N 38-83 Lymphocyte % 28.3 % N 25-47 Monocyte % 8.1 % N 1-9 Eosinophil % 1.9 % N 0-6 Basophil % 0.7 % N 0-2 Nucleated Red Blood Cells % 0 N Urine Culture And 02/23/2017 [facility] Urine Culture SEE RESULT [address] [place] [address] [phone] Ua Routine 02/23/2017 [facility] In House Ua Specific 1.005 [place] Ua PH 8 Ua Color yellow Ua Appera clear Ua WBC trace Ua Protein neg Ua Glucose neg Ua Ketones neg Ua Bilirubin neg Ua Urobilinogen neg Ua Nitrite neg Ua Occult Blood neg Lipid Profile 08/18/2016 [facility] Triglycerides 137 mg/dL N 20 (Trig/Chol/HDL) [address] [place] [address] [phone] Cholesterol 147 mg/dL N 21 HDL Cholesterol 48.2 mg/dL N 22 LDL Cholesterol 71 mg/dL N 23 Comp Metabolic Panel 08/18/2016 [facility] Sodium 140 mmol/L N 133-145 [address] [place] [address] [phone] Potassium 4.2 mmol/L N 3.5-5.0 Chloride 105 mmol/L N 101-111 Co2 Carbon Dioxide 29 mmol/L N 22-32 Anion Gap 6 mmol/L N 2-11 Glucose 92 mg/dL N 70-100 Blood Urea Nitrogen 15 mg/dL N 6-24 Creatinine 0.62 mg/dL N 0.51-0.95 BUN/Creatinine Ratio 24.2 High 8-20 Calcium 9.2 mg/dL N 8.6-10.3 Total Protein 6.5 g/dL N 6.4-8.9 Albumin 4.0 g/dL N 3.2-5.2 Globulin 2.5 g/dL N 2-4 Albumin/Globulin Ratio 1.6 N 1-3 Total Bilirubin 0.50 mg/dL N 0.2-1.0 Alkaline Phosphatase 58 U/L N 34-104 Alt 25 U/L N 7-52 Ast 20 U/L N 13-39 Egfr Non- 91.3 N >60 Egfr 117.4 N >60 24 Comp Metabolic Panel 08/25/2015 [facility] Sodium 140 mmol/L N 133-145 [address] [place] [address] [phone] Potassium 4.1 mmol/L N 3.5-5.0 Chloride 105 mmol/L N 101-111 Co2 Carbon Dioxide 28 mmol/L N 22-32 Anion Gap 7 mmol/L N 2-11 Glucose 96 mg/dL N 70-100 Blood Urea Nitrogen 15 mg/dL N 6-24 Creatinine 0.72 mg/dL N 0.51-0.95 BUN/Creatinine Ratio 20.8 High 8-20 Calcium 9.3 mg/dL N 8.6-10.3 Total Protein 6.5 g/dL N 6.4-8.9 Albumin 4.1 g/dL N 3.2-5.2 Globulin 2.4 g/dL N 2-4 Albumin/Globulin Ratio 1.7 N 1-3 Total Bilirubin 0.50 mg/dL N 0.2-1.0 Alkaline Phosphatase 58 U/L N 34-104 Alt 24 U/L N 7-52 Ast 22 U/L N 13-39 Egfr Non- 77.0 N >60 Egfr 99.0 N >60 25 Lipid Profile 08/25/2015 [facility] Triglycerides 149 mg/dL N 26 (Trig/Chol/HDL) [address] [place] [address] [phone] Cholesterol 157 mg/dL N 27 HDL Cholesterol 47.7 mg/dL N 28 LDL Cholesterol 80 mg/dL N 29 CKMB 08/25/2015 [facility] CKMB ng/mL 1.7 ng/mL N 0.6-6.[address] [place] [address] [phone] Laboratory test 08/25/2015 [facility] Troponin-I 0.00 ng/mL N <0.03 30 finding 101 [facility] ([facility]) [place] [address] [phone] CBC Auto Diff 08/25/2015 [facility] White Blood 6.5 10^3/uL N 3.5-10.[address] [place] [address] [phone] Red Blood Count 4.28 10^6/uL N 4.0-5.4 Hemoglobin 13.8 g/dL N 12.0-16.0 Hematocrit 42 % N 35-47 Mean Corpuscular Volume 98 fL High 80-97 Mean Corpuscular Hemoglobin 32 pg High 27-31 Mean Corpuscular HGB Conc 33 g/dL N 31-36 Red Cell Distribution Width 14 % N 10.5-15 Platelet Count 218 10^3/uL N 150-450 Mean Platelet Volume 9 um3 N 7.4-10.4 Abs Neutrophils 4.1 10^3/uL N 1.5-7.7 Abs Lymphocytes 1.8 10^3/uL N 1.0-4.8 Abs Monocytes 0.5 10^3/uL N 0-0.8 Abs Eosinophils 0.1 10^3/uL N 0-0.6 Abs Basophils 0 10^3/uL N 0-0.2 Abs Nucleated RBC 0 10^3/uL N Granulocyte % 62.2 % N 38-83 Lymphocyte % 27.8 % N 25-47 Monocyte % 7.8 % N 1-9 Eosinophil % 1.6 % N 0-6 Basophil % 0.6 % N 0-2 Nucleated Red Blood Cells % 0 N Laboratory test 08/25/2015 [facility] B-Type Natriuretic 74 pg/ mL N [address] [place] [address] [phone] Lipid Profile 07/30/2014 [facility] Triglycerides 202 mg/dL N 32, 33 (Trig/Chol/HDL) [address] [place] [address] [phone] Cholesterol 152 mg/dL N 34 HDL Cholesterol 44.5 mg/dL N 35 LDL Cholesterol 67 mg/dL N 36 Comp Metabolic Panel 07/30/2014 [facility] Sodium 139 mmol/L N 133-[address] [place] [address] [phone] Potassium 4.2 mmol/L N 3.5-5.0 37 Chloride 104 mmol/L N 101-111 Co2 Carbon Dioxide 30 mmol/L N 22-32 Anion Gap 5 mmol/L N 2-11 Glucose 93 mg/dL N 70-100 Blood Urea Nitrogen 10 mg/dL N 6-24 Creatinine 0.66 mg/dL N 0.51-0.95 BUN/Creatinine Ratio 15.2 N 8-20 Calcium 9.3 mg/dL N 8.6-10.3 Total Protein 6.3 g/dL Low 6.4-8.9 Albumin 3.9 g/dL N 3.2-5.2 Globulin 2.4 g/dL N 2-4 Albumin/Globulin Ratio 1.6 N 1-3 Total Bilirubin 0.50 mg/dL N 0.2-1.0 Alkaline Phosphatase 63 U/L N 34-104 Alt 24 U/L N 7-52 Ast 22 U/L N 13-39 Egfr Non- 85.3 N >60 Egfr 109.7 N >60 38 Throat-Beta 01/14/2014 [facility] Throat Beta Strep (SEE 39 , [address] Culture NOTE) [place] [address] [phone] Surgical 12/23/2013 [facility] S RUN DATE: [address] 12/24/ [place] [address] <SEE [phone] NOTE> Surgical 12/17/2013 [facility] S RUN DATE: [address] 12/17/ [place] [address] <SEE [phone] NOTE> Lipid Profile 06/13/2013 [facility] Triglycerides 155 mg/dL 40-2 (Trig/Chol/HDL) [address] [place] [address] [phone] Cholesterol 149 mg/dL Less than 200 HDL Cholesterol 47 mg/dL 40-60 43 Cholesterol/HDL Ratio 3.2 Average 1-4.44 LDL Cholesterol 71.0 Less Than 100 44 Comp Metabolic Panel 06/13/2013 [facility] Sodium 140 mmol/L 133-[address] [place] [address] [phone] Potassium 4.1 mmol/L 3.5-5.0 Chloride 107 mmol/L 101-111 Co2 Carbon Dioxide 29.0 mmol/L 22-32 Anion Gap 4.0 mmol/L 2-11 Glucose 97 mg/dL 70-100 Blood Urea Nitrogen 10 mg/dL 6-24 Creatinine 0.60 mg/dL 0.50-1.40 BUN/Creatinine Ratio 16.7 8-20 Calcium 9.1 mg/dL 8.1-9.9 Total Protein 6.1 g/dL Low 6.2-8.1 Albumin 3.6 g/dL 3.2-5.2 Globulin 2.5 g/dL 2-4 Albumin/Globulin Ratio 1.4 1-3 Total Bilirubin 0.5 mg/dL 0.4-1.5 Alkaline Phosphatase 63 U/L 30-110 Alt 29 U/L 14-54 Ast 29 U/L 12-42 Egfr Non- 95.5 >60 Egfr 122.8 >60 45 CBC W/Electronic 04/01/2013 [facility] White Blood 6.9 10^3/uL 4.8-10.[address] [place] [place] [address] [phone] Red Blood Count 4.12 10^6/uL 4.0-5.4 Hemoglobin 13.2 g/dL 12.0-16.0 Hematocrit 39 % 35-47 Mean Corpuscular Volume 95 fL 80-97 Mean Corpuscular Hemoglobin 32 pg High 27-31 Mean Corpuscular HGB Conc 34 g/dL 31-36 Red Cell Distribution Width 14 % 10.5-15 Platelet Count 245 10^3/uL 150-450 Mean Platelet Volume 9 um3 7.4-10.4 Abs Neutrophils 4.3 10^3/uL 1.5-7.7 Abs Lymphocytes 2.0 10^3/uL 1.0-4.8 Abs Monocytes 0.5 10^3/uL 0-0.8 Abs Eosinophils 0.2 10^3/uL 0-0.6 Abs Basophils 0 10^3/uL 0-0.2 Abs Nucleated RBC 0 10^3/uL Granulocyte % 61.6 % 38-83 Lymphocyte % 28.9 % 25-47 Monocyte % 6.8 % 1-9 Eosinophil % 2.2 % 0-6 Basophil % 0.5 % 0-2 Nucleated Red Blood Cells % 0 CMP Panel 04/01/2013 [facility] Sodium 141 mmol/L 133-[address] [place] [address] [phone] Potassium 4.0 mmol/L 3.5-5.0 Chloride 107 mmol/L 101-111 Co2 Carbon Dioxide 27.0 mmol/L 22-32 Anion Gap 7.0 mmol/L 2-11 Glucose 142 mg/dL High 70-100 Blood Urea Nitrogen 12 mg/dL 6-24 Creatinine 0.70 mg/dL 0.50-1.40 BUN/Creatinine Ratio 17.1 8-20 Calcium 9.6 mg/dL 8.1-9.9 Total Protein 6.2 g/dL 6.2-8.1 Albumin 3.6 g/dL 3.2-5.2 Globulin 2.6 g/dL 2-4 Albumin/Globulin Ratio 1.4 1-3 Total Bilirubin 0.7 mg/dL 0.4-1.5 Alkaline Phosphatase 62 U/L 30-110 Alt 32 U/L 14-54 Ast 27 U/L 12-42 Egfr Non- 79.9 >60 Egfr 102.8 >60 46 Ua Routine 03/28/2013 [facility] Ua Specific [place] 1.005 Ua PH 5.0 Ua Color neg Ua Appera neg Ua WBC neg Ua Protein neg Ua Glucose neg Ua Ketones neg Ua Bilirubin neg Ua Urobilinogen neg Ua Nitrite neg Ua Occult Blood neg Laboratory test finding 06/26/2012 [facility] Alt 26 U/L 14- 54 47 [address] [place] [address] [phone] Ast 25 U/L 12-42 48 TSH (Thyroid Stimulating Horm) 2.57 MIU/ML 0.34-5.60 49 Vitamin B12 336 pg/mL 180-914 50 Lipid Profile 06/26/2012 [facility] Triglycerides 95 mg/dL 40 -200 (Trig/Chol/HDL) [address] [place] [address] [phone] Cholesterol 157 mg/dL Less than 200 51 HDL Cholesterol 57 mg/dL 40-60 52 Cholesterol/HDL Ratio 2.8 AVERAGE 1-4.44 LDL Cholesterol 81.0 mg/dL Less Than 100 Comp Metabolic Panel 12/27/2011 [facility] Sodium 140 mmol/L 135-145 [address] [place] [address] [phone] Potassium 4.1 mmol/L 3.5-5.0 Chloride 105 mmol/L 101-111 Co2 (Carbon Dioxide) 31.0 mmol/L 22-32 Anion Gap 4.0 mmol/L 2-11 53 Glucose 96 mg/dL 70-100 BUN 16 mg/dL 6-24 Creatinine 0.8 mg/dL 0.50-1.40 One Over Creatinine 1.25 BUN/Creatinine Ratio 20.0 8-20 Calcium 9.3 mg/dL 8.1-9.9 Total Protein 6.2 GM/DL 6.2-8.1 Albumin 3.8 GM/DL 3.2-5.2 Globulin 2.4 GM/DL 2-4 Albumin/Globulin Ratio 1.6 1-3 Bilirubin Total 0.5 mg/dL 0.4-1.5 54 Alkaline Phosphatase 77 U/L 30-110 Alt (SGPT) 28 U/L 14-54 Ast (Sgot) 27 U/L 12-42 eGFR Non- 68.8 > 60 eGFR 88.5 > 60 55 Lipid Profile 12/27/2011 [facility] Triglyceride 137 mg/dL 40 -200 (Trig/Chol/HDL) [address] [place] [address] [phone] Cholesterol 184 mg/dL Less Than 200 56 High Density Lipoprotein 50 mg/dL 40-60 57 Cholesterol/HDL Ratio 3.68 AVERAGE 1-4.44 Low Density Lipoprotein 107 mg/dL High Less Than 100 58 Lipid Profile 05/17/2011 [facility] Triglyceride 92 mg/dL 40- 200 (Trig/Chol/HDL) [address] [place] [address] [phone] Cholesterol 156 mg/dL Less Than 200 59 High Density Lipoprotein 46 mg/dL 40-60 60 Cholesterol/HDL Ratio 3.39 AVERAGE 1-4.44 Low Density Lipoprotein 92 mg/dL Less Than 100 61 Comp Metabolic Panel 05/17/2011 [facility] Sodium 142 mmol/L 135-[address] [place] [address] [phone] Potassium 4.6 mmol/L 3.5-5.0 Chloride 107 mmol/L 101-111 Co2 (Carbon Dioxide) 30.0 mmol/L 22-32 Anion Gap 5.0 mmol/L 2-11 62 Glucose 103 mg/dL High 70-100 BUN 12 mg/dL 6-24 Creatinine 0.7 mg/dL 0.50-1.40 One Over Creatinine 1.42 BUN/Creatinine Ratio 17.1 8-20 Calcium 9.4 mg/dL 8.1-9.9 Total Protein 6.3 GM/DL 6.2-8.1 Albumin 3.7 GM/DL 3.2-5.2 Globulin 2.6 GM/DL 2-4 Albumin/Globulin Ratio 1.4 1-3 Bilirubin Total 0.5 mg/dL 0.4-1.5 63 Alkaline Phosphatase 61 U/L 30-110 Alt (SGPT) 25 U/L 14-54 Ast (Sgot) 28 U/L 12-42 eGFR Non- 80.3 > 60 eGFR 103.3 > 60 64 Manual Differential 09/09/2010 [facility] Polysegmented 82 % 38-[address] [place] [address] [phone] Band Neutrophil 4 % 0-8 Lymphocyte 11 % Low 25-47 Monocyte 3 % 0-13 Absolute Neutrophil Count 9.9 RBC Morphology NORMAL CBC With 09/09/2010 [facility] White Blood 11.6 CUMM High 4.8- 10.8 Electronic Diff [address] [place] [place] [address] [phone] Red Cell Count 3.99 CUMM Low 4.2-5.4 Hemoglobin 12.9 g/dL 12.0-16.0 Hematocrit 38 % 35-47 Mean Corpuscular Volume 95 um3 79-97 Mean Corpuscular Hemoglob 32 pg High 27-31 Mean Corpuscular HGB Cone 34 g/dL 32-36 Redcell Distribution WDTH 14 % 10.5-15 Platelet Count 259 CUMM 150-450 Mean Platelet Volume 8.4 um3 7.4-10.4 65 Comp Metabolic Panel 09/09/2010 [facility] Sodium 137 mmol/L 135-[address] [place] [address] [phone] Potassium 4.4 mmol/L 3.5-5.0 Chloride 101 mmol/L 101-111 Co2 (Carbon Dioxide) 27.0 mmol/L 22-32 Anion Gap 9.0 mmol/L 2-11 66 Glucose 80 mg/dL 70-100 BUN 10 mg/dL 6-24 Creatinine 0.80 mg/dL 0.50-1.40 One Over Creatinine 1.20 BUN/Creatinine Ratio 12.5 8-20 Calcium 9.1 mg/dL 8.1-9.9 Total Protein 6.1 GM/DL Low 6.2-8.1 Albumin 3.4 GM/DL 3.2-5.2 Globulin 2.7 GM/DL 2-4 Albumin/Globulin Ratio 1.3 1-3 Bilirubin Total 0.7 mg/dL 0.4-1.5 67 Alkaline Phosphatase 75 U/L 30-110 Alt (SGPT) 24 U/L 14-54 Ast (Sgot) 25 U/L 12-42 eGFR Non- 73.4 > 60 eGFR 88.8 > 60 68 Urine Culture & 09/01/2010 [facility] Urine Culture NG [address] [place] [address] [phone] Laboratory test 09/01/2010 [facility] Amylase 48 U/L 20-[address] [place] [address] [phone] Lipase 18 U/L Low 22-51 C Reactive Protein 2.3 mg/dL High Less Than 0.5 Laboratory test 09/01/2010 [facility] Stool For NEGATIVE Negative finding [address] [place] [address] [phone] CBC With 09/01/2010 [facility] White Blood 6.6 CUMM 4.8-10.8 Electronic Diff [address] [place] [address] [phone] Red Cell Count 4.11 CUMM Low 4.2-5.4 Hemoglobin 13.4 g/dL 12.0-16.0 Hematocrit 39 % 35-47 Mean Corpuscular Volume 95 um3 79-97 Mean Corpuscular Hemoglob 33 pg High 27-31 Mean Corpuscular HGB Cone 34 g/dL 32-36 Redcell Distribution WDTH 13 % 10.5-15 Platelet Count 239 CUMM 150-450 Mean Platelet Volume 7.4 um3 7.4-10.4 Gran % 70.8 % 38-83 Lymph % 18.7 % Low 25-47 Mononuclear % 9.7 % High 1-9 Eosinophil % 0.8 % 0-6 Basophil % 0 % 0-2 Abs Lymphs 1.2 1.0-4.8 Abs Mononuclear 0.6 0-0.8 Absolute Neutrophil Count 4.7 1.5-7.7 Abs Eosinophils 0.1 0-0.6 Abs Basophils 0 0-0.2 71 Urinalysis W/Microscopic 09/01/2010 [facility] Ua Color YELLOW Yellow [address] [place] [address] [phone] Appearance-Urine CLEAR Clear Specific [place]-Ur 1.027 1.010-1.030 Esterase-Urine 1+ Abnormal Negative Nitrite NEGATIVE Negative [id number] NEGATIVE Negative Protein-Urine TRACE Abnormal Negative PH-Urine 5.5 5-9 Blood-Urine TRACE Abnormal Negative Ketones-Urine NEGATIVE Negative Bilirubin-Ur NEGATIVE Negative Glucose-Urine NEGATIVE Negative WBC-Urine 5-10 Abnormal 0-5 RBC-Urine 0-2 0-2 Mucus Urine MODERATE None Epith Cells-Ur FEW None Comp Metabolic Panel 09/01/2010 [facility] Sodium 137 mmol/L 135-[address] [place] [address] [phone] Potassium 4.3 mmol/L 3.5-5.0 Chloride 106 mmol/L 101-111 Co2 (Carbon Dioxide) 24.0 mmol/L 22-32 Anion Gap 7.0 mmol/L 2-11 72 Glucose 110 mg/dL High 70-100 BUN 18 mg/dL 6-24 Creatinine 0.70 mg/dL 0.50-1.40 One Over Creatinine 1.40 BUN/Creatinine Ratio 25.7 High 8-20 Calcium 8.8 mg/dL 8.1-9.9 Total Protein 6.2 GM/DL 6.2-8.1 Albumin 3.6 GM/DL 3.2-5.2 Globulin 2.6 GM/DL 2-4 Albumin/Globulin Ratio 1.4 1-3 Bilirubin Total 0.7 mg/dL 0.4-1.5 73 Alkaline Phosphatase 62 U/L 30-110 Alt (SGPT) 23 U/L 14-54 Ast (Sgot) 25 U/L 12-42 eGFR Non- 85.6 > 60 eGFR 103.5 > 60 74 Comp Metabolic Panel 05/05/2010 [facility] Sodium 141 mmol/L 135-[address] [place] [address] [phone] Potassium 4.1 mmol/L 3.5-5.0 Chloride 106 mmol/L 101-111 Co2 (Carbon Dioxide) 29.0 mmol/L 22-32 Anion Gap 6.0 mmol/L 2-11 75 Glucose 85 mg/dL 70-100 76 BUN 19 mg/dL 6-24 Creatinine 0.70 mg/dL 0.50-1.40 One Over Creatinine 1.40 BUN/Creatinine Ratio 27.1 High 8-20 Calcium 9.5 mg/dL 8.1-9.9 77 Total Protein 6.4 GM/DL 6.2-8.1 Albumin 3.9 GM/DL 3.2-5.2 Globulin 2.5 GM/DL 2-4 Albumin/Globulin Ratio 1.6 1-3 Bilirubin Total 0.7 mg/dL 0.4-1.5 78 Alkaline Phosphatase 52 U/L 30-110 Alt (SGPT) 23 U/L 14-54 Ast (Sgot) 22 U/L 12-42 eGFR Non- 85.6 > 60 eGFR 103.5 > 60 79 Lipid Profile 05/05/2010 [facility] Triglyceride 182 mg/dL 40 -200 (Trig/Chol/HDL) [address] [place] [address] [phone] Cholesterol 156 mg/dL Less Than 200 80 High Density Lipoprotein 37 mg/dL Low 40-60 81 Cholesterol/HDL Ratio 4.22 AVERAGE 1-4.44 Low Density Lipoprotein 83 mg/dL Less Than 100 82 1 *Ascorbic acid is present which may interfere with detection of blood. 2 Standard intensity warfarin therapeutic range: 2.0-3.0 High intensity warfarin therapeutic range: 2.5-3.5 3 Desirable: <150 Borderline High: 150-199 High: 200-499 Very High: >500 4 Desirable: <200 Borderline High: 200-239 High: >239 5 Low: <40 Desirable: 40-60 High: >60 6 Desirable: <100 Near Optimal: 100-129 Borderline High: 130-159 High: 160-189 Very High: >189 7 Because ethnic data is not always readily available, this report includes an eGFR for both -Americans and non- Americans. The National Kidney Disease Education Program (NKDEP) does not endorse the use of the MDRD equation for patients that are not between the ages of 18 and 70, are , have extremes of body size, muscle mass, or nutritional status, or are non- or non-. According to the National Kidney Foundation, irrespective of diagnosis, the stage of the disease is based on the level of kidney function: Stage Description GFR(mL/min/1.73 m(2)) 1 Kidney damage with normal or decreased GFR 90 2 Kidney damage with mild decrease in GFR 60-89 3 Moderate decrease in GFR 30-59 4 Severe decrease in GFR 15-29 5 Kidney failure <15 (or dialysis) 8 Because ethnic data is not always readily available, this report includes an eGFR for both -Americans and non- Americans. The National Kidney Disease Education Program (NKDEP) does not endorse the use of the MDRD equation for patients that are not between the ages of 18 and 70, are , have extremes of body size, muscle mass, or nutritional status, or are non- or non-. According to the National Kidney Foundation, irrespective of diagnosis, the stage of the disease is based on the level of kidney function: Stage Description GFR(mL/min/1.73 m(2)) 1 Kidney damage with normal or decreased GFR 90 2 Kidney damage with mild decrease in GFR 60-89 3 Moderate decrease in GFR 30-59 4 Severe decrease in GFR 15-29 5 Kidney failure <15 (or dialysis) 9 Desirable: <150 Borderline High: 150-199 High: 200-499 Very High: >500 10 Desirable: <200 Borderline High: 200-239 High: >239 11 Low: <40 Desirable: 40-60 High: >60 12 Desirable: <100 Near Optimal: 100-129 Borderline High: 130-159 High: 160-189 Very High: >189 13 RESULT: No apparent monoclonal protein on serum electrophoresis. Test Performed by: [address] [address] 14 Desirable <150 Borderline high 150-199 High 200-499 Very High >500 15 Desirable <200 Borderline high 200-239 High >239 16 Low <40 Desirable: 40-60 High: >60 17 Desirable: <100 mg/dL Near Optimal: 100-129 mg/dL Borderline High: 130-159 mg/dL High: 160-189 mg/dL Very High: >189 mg/dL 18 Because ethnic data is not always readily available, this report includes an eGFR for both -Americans and non- Americans. The National Kidney Disease Education Program (NKDEP) does not endorse the use of the MDRD equation for patients that are not between the ages of 18 and 70, are , have extremes of body size, muscle mass, or nutritional status, or are non- or non-. According to the National Kidney Foundation, irrespective of diagnosis, the stage of the disease is based on the level of kidney function: Stage Description GFR(mL/min/1.73 m(2)) 1 Kidney damage with normal or decreased GFR 90 2 Kidney damage with mild decrease in GFR 60-89 3 Moderate decrease in GFR 30-59 4 Severe decrease in GFR 15-29 5 Kidney failure <15 (or dialysis) 19 SEE RESULT BELOW Name: TIARRA STERLING : [address]: Stephanie Maier MD Acct: [id number] Unit: [id number] AGE: 87 Location: [facility] Re02/23/17 SEX: F Status: REG REF SPEC: [id number] TAMERA: 02/23/17-[address] [facility] [address]: Stephanie Maier MD REQ: [id number] RECD: 02/23/17 STATUS: COMP _ SOURCE: URINE SPDESC: ORDERED: Urine Culture COMMENTS: [id number] Urine Source: Random Procedure Result Reported Site Urine Culture Final 02/24/17- 1605 ML No Growth (<1,000 CFU/mL) * ML - MAIN LAB ([facility]) . END OF REPORT * ML=Testing performed at Main Lab DEPARTMENT OF PATHOLOGY, [address] [place] [address] Reuben Contreras M.D. Director [facility] # [id number] 20 Desirable <150 Borderline high 150-199 High 200-499 Very High >500 21 Desirable <200 Borderline high 200-239 High >239 22 Low <40 Desirable: 40-60 High: >60 23 Desirable: <100 mg/dL Near Optimal: 100-129 mg/dL Borderline High: 130-159 mg/dL High: 160-189 mg/dL Very High: >189 mg/dL 24 Because ethnic data is not always readily available, this report includes an eGFR for both -Americans and non- Americans. The National Kidney Disease Education Program (NKDEP) does not endorse the use of the MDRD equation for patients that are not between the ages of 18 and 70, are , have extremes of body size, muscle mass, or nutritional status, or are non- or non-. According to the National Kidney Foundation, irrespective of diagnosis, the stage of the disease is based on the level of kidney function: Stage Description GFR(mL/min/1.73 m(2)) 1 Kidney damage with normal or decreased GFR 90 2 Kidney damage with mild decrease in GFR 60-89 3 Moderate decrease in GFR 30-59 4 Severe decrease in GFR 15-29 5 Kidney failure <15 (or dialysis) 25 Because ethnic data is not always readily available, this report includes an eGFR for both -Americans and non- Americans. The National Kidney Disease Education Program (NKDEP) does not endorse the use of the MDRD equation for patients that are not between the ages of 18 and 70, are , have extremes of body size, muscle mass, or nutritional status, or are non- or non-. According to the National Kidney Foundation, irrespective of diagnosis, the stage of the disease is based on the level of kidney function: Stage Description GFR(mL/min/1.73 m(2)) 1 Kidney damage with normal or decreased GFR 90 2 Kidney damage with mild decrease in GFR 60-89 3 Moderate decrease in GFR 30-59 4 Severe decrease in GFR 15-29 5 Kidney failure <15 (or dialysis) 26 Desirable <150 Borderline high 150-199 High 200-499 Very High >500 27 Desirable <200 Borderline high 200-239 High >239 28 Low <40 Desirable: 40-60 High: >60 29 Desirable: <100 mg/dL Near Optimal: 100-129 mg/dL Borderline High: 130-159 mg/dL High: 160-189 mg/dL Very High: >189 mg/dL 30 Reference Range and Interpretation: TnI (ng/mL) Interpretation Less Than 0.03 ng/mL Not supportive of diagnosis of CA 0.03 - 0.50 ng/mL Indeterminate: suggest serial studies if clinically indicated. Greater than 0.5 ng/mL Consistent with diagnosis of CA 31 >100 to <200 pg/mL: likely compensated congestive heart failure (CHF) 200 to 400 pg/mL: likely moderate CHF >400 pg/mL: likely moderate to severe CHF 32 PT IS FASTING 33 Desirable <150 Borderline high 150-199 High 200-499 Very High >500 34 Desirable <200 Borderline high 200-239 High >239 35 Low <40 Desirable: 40-60 High: >60 36 Desirable <100 Near Optimal 100-129 Borderline high 130-159 High 160-189 Very High >189 37 Potassium reference range changed effective 07/06/14 38 Because ethnic data is not always readily available, this report includes an eGFR for both -Americans and non- Americans. The National Kidney Disease Education Program (NKDEP) does not endorse the use of the MDRD equation for patients that are not between the ages of 18 and 70, are , have extremes of body size, muscle mass, or nutritional status, or are non- or non-. According to the National Kidney Foundation, irrespective of diagnosis, the stage of the disease is based on the level of kidney function: Stage Description GFR(mL/min/1.73 m(2)) 1 Kidney damage with normal or decreased GFR 90 2 Kidney damage with mild decrease in GFR 60-89 3 Moderate decrease in GFR 30-59 4 Severe decrease in GFR 15-29 5 Kidney failure <15 (or dialysis) 39 Comment: collected by sarah saavedra 40 RUN DATE: 01/16/14 [facility] LAB LIVE PAGE 1 RUN TIME: [address] [place] [id number] Specimen Inquiry Name: STERLINGTIARRA R : [address]: Jann Rondon MD Acct: [id number] Unit: [id number] AGE: 83 Location: [facility] Re01/14/14 SEX: F Status: DEP ER SPEC: [id number] TAMERA: 01/14/14-[address] [facility] [address]: Jann Rondon MD REQ: [id number] RECD: 01/14/14121 STATUS: COMP JUANITOHR DR: Stephanie Maier MD _ SOURCE: THROAT SPDESC: ORDERED: Throat Beta Str COMMENTS: Comment: collected by sarah saavedra Procedure Result Verified Site Throat Beta Strep Culture Final 01/16/14- 0900 ML Negative For Group A Beta Streptococcus END OF REPORT * ML=Testing performed at Main Lab DEPARTMENT OF PATHOLOGY, [facility] [employer] [place] [address] Reuben Contreras M.D. Director [facility] # [id number] RUN DATE: 12/24/13 [facility] LAB LIVE PAGE 1 RUN TIME: 1357 [facility] [employer] [place], [place] [address] Specimen Inquiry Name: TIARRA STERLING : [address]: Facundo Flaherty MD Acct: [id number] Unit: [id number] AGE: 83 Location: [place] Re12/23/13 SEX: F Status: REG SDC SPEC: [id number] TAMERA: 12/23/13- SUBM DR: Facundo Flaherty MD REQ: [id number] RECD: 12/23/131507 STATUS: JERAMY VARGAS DR: Stephanie Maier MD _ ORDERED: CONSULT W/ FS, FS ADDITIONAL, LEVEL IV FINAL DIAGNOSIS Skin, right upper cutaneous lip, biopsy: A. Basal cell carcinoma, nodular type. B. Deep, tip, and lateral margins of resection are clear. PATHOLOGY SURGICAL CONSULT Frozen section (FS)/Touch Prep (TP)/Gross Consult (GC) FS: Right upper cutaneous lip: A. Basal cell carcinoma (DS). B. Margins clear (DS). PRE-OPERATIVE DIAGNOSIS Basal cell carcinoma right upper cutaneous lip, suture bruce twelve o'clock superior margin. GROSS DESCRIPTION The specimen is received fresh labeled Tiarra Sterling, Excision BCC Right Upper Cutaneous Lip Suture Bruce Twelve O'clock Superior Margin and consists of a 2.1 x 0.8 cm. pierce-pink skin ellipse excised to a depth of 0.5 cm. There is a suture attached to one long axis which designates Twelve o'clock. The specimen is inked as follows: nine o'clock half - black, three o'clock half - blue, and twelve o'clock tip - green, serially sectioned from twelve o'clock to six o'clock and entirely submitted for frozen section microscopy in cassettes FSA and FSB. The frozen section residue is entirely submitted in cassettes FSA and FSB to include ellipse ends in cassette FSA. Signed (signature on file) Reuben Contreras MD 1357 END OF REPORT * ML=Testing performed at Main Lab DEPARTMENT OF PATHOLOGY, [facility] [employer] [place], [place] [address] Reuben Contreras M.D. Director [facility] Permit #[id number] 42 RUN DATE: 12/17/13 [facility] LAB LIVE PAGE 1 RUN TIME: 151 [facility] [address] [place], [place] [address] Specimen Inquiry Name: TIARRA STERLING : [address]: Facundo Flaherty MD Acct: [id number] Unit: [id number] AGE: 83 Location: [facility] Re12/17/13 SEX: F Status: REG REF SPEC: [id number] TAMERA: 12/17/13- SUBM DR: Facundo Flaherty MD REQ: [id number] RECD: 12/17/13140 STATUS: JERAMY VARGAS DR: Stephanie Medina MD _ ORDERED: Consult w/slide FINAL DIAGNOSIS Skin, right nasolabial fold, shave biopsy: A. Basal cell carcinoma, nodular type. B. Basal cell carcinoma is broadly transected along the base of this shave biopsy. PRE-OPERATIVE DIAGNOSIS Basal cell carcinoma. GROSS DESCRIPTION Received is one glass slide labeled [id number], Tiarra Sterling Miraca LS. Accompanying this slide is a pathology report labeled Jose Antonio Stephanie, [id number] [facility], [address], [address], [place] [address] Brooke Lucero on October 31, 2013. Signed (signature on file) Reuben Contreras MD 1518 END OF REPORT * ML=Testing performed at Main Lab DEPARTMENT OF PATHOLOGY, [address] [place] [address] Reuben Contreras M.D. Director [facility] Permit #[id number] HDL Interpretation: Undesirable: High Risk: Less than 40 mg/dL Desirable: Low Risk: Greater than 60 mg/dL 44 LDL Interpretation: Low Risk Optimal Level: LDL Less than 100 mg/dL Near or Above Optimal: LDL 100-129 mg/dL Borderline High Risk: LDL 130-159 mg/dL High Risk: LDL 160-189 mg/dL Very High Risk: LDL Greater than 189 mg/dL 45 Because ethnic data is not always readily available, this report includes an eGFR for both -Americans and non- Americans. The National Kidney Disease Education Program (NKDEP) does not endorse the use of the MDRD equation for patients that are not between the ages of 18 and 70, are , have extremes of body size, muscle mass, or nutritional status, or are non- or non-. According to the National Kidney Foundation, irrespective of diagnosis, the stage of the disease is based on the level of kidney function: Stage Description GFR(mL/min/1.73 m(2)) 1 Kidney damage with normal or decreased GFR 90 2 Kidney damage with mild decrease in GFR 60-89 3 Moderate decrease in GFR 30-59 4 Severe decrease in GFR 15-29 5 Kidney failure <15 (or dialysis) 46 Because ethnic data is not always readily available, this report includes an eGFR for both -Americans and non- Americans. The National Kidney Disease Education Program (NKDEP) does not endorse the use of the MDRD equation for patients that are not between the ages of 18 and 70, are , have extremes of body size, muscle mass, or nutritional status, or are non- or non-. According to the National Kidney Foundation, irrespective of diagnosis, the stage of the disease is based on the level of kidney function: Stage Description GFR(mL/min/1.73 m(2)) 1 Kidney damage with normal or decreased GFR 90 2 Kidney damage with mild decrease in GFR 60-89 3 Moderate decrease in GFR 30-59 4 Severe decrease in GFR 15-29 5 Kidney failure <15 (or dialysis) 47 PT IS FASTING 48 PT IS FASTING 49 PT IS FASTING 50 PT IS FASTING 51 Desirable: Less than 200 MG/DL Borderline-High Risk: 200-239 MG/DL High-Risk: 240 MG/DL and over 52 HDL Interpretation: Undesirable: High Risk: Less than 40 MG/DL Desirable: Low Risk: Greater than 60 MG/DL 53 Anion gap measurement may be of limited value in the presence of any alkalosis, especially in a combined acid base disorder. . 54 A metabolite of Naproxen, O-desmethylnaproxen, has been shown to interfere with the Jendrassik-Sunray method for measuring total bilirubin. Samples from patients who have taken Naproxen have shown spurious elevation in total bilirubin levels. 55 Because ethnic data is not always readily available, this report includes an eGFR for both -Americans and non- Americans. The National Kidney Disease Education Program (NKDEP) does not endorse the use of the MDRD equation for patients that are not between the ages of 18 and 70, are , have extremes of body size, muscle mass, or nutritional status, or are non- or non-. According to the National Kidney Foundation, irrespective of diagnosis, the stage of the disease is based on the level of kidney function: Stage Description GFR(mL/min/1.73 m(2)) 1 Kidney damage with normal or decreased GFR 90 2 Kidney damage with mild decrease in GFR 60-89 3 Moderate decrease in GFR 30-59 4 Severe decrease in GFR 15-29 5 Kidney failure <15 (or dialysis) 56 CHOLESTEROL INTERPRETATION: Desirable: Less than 200 MG/DL Borderline-High Risk: 200-239 MG/DL High-Risk: 240 MG/DL and over 57 HDL INTERPRETATION: Undesirable: High Risk: Less than 40 MG/DL Desirable: Low Risk: Greater than 60 MG/DL 58 LDL INTERPRETATION: Low Risk Optimal Level: LDL Less than 100 MG/DL Near or Above Optimal: LDL 100-129 MG/DL Borderline High Risk: LDL 130-159 MG/DL High Risk: LDL 160-189 MG/DL Very High Risk: LDL Greater than 189 MG/DL 59 CHOLESTEROL INTERPRETATION: Desirable: Less than 200 MG/DL Borderline-High Risk: 200-239 MG/DL High-Risk: 240 MG/DL and over 60 HDL INTERPRETATION: Undesirable: High Risk: Less than 40 MG/DL Desirable: Low Risk: Greater than 60 MG/DL 61 LDL INTERPRETATION: Low Risk Optimal Level: LDL Less than 100 MG/DL Near or Above Optimal: LDL 100-129 MG/DL Borderline High Risk: LDL 130-159 MG/DL High Risk: LDL 160-189 MG/DL Very High Risk: LDL Greater than 189 MG/DL 62 Anion gap measurement may be of limited value in the presence of any alkalosis, especially in a combined acid base disorder. . 63 A metabolite of Naproxen, O-desmethylnaproxen, has been shown to interfere with the Jendrassik-Sunray method for measuring total bilirubin. Samples from patients who have taken Naproxen have shown spurious elevation in total bilirubin levels. 64 Because ethnic data is not always readily available, this report includes an eGFR for both -Americans and non- Americans. The National Kidney Disease Education Program (NKDEP) does not endorse the use of the MDRD equation for patients that are not between the ages of 18 and 70, are , have extremes of body size, muscle mass, or nutritional status, or are non- or non-. According to the National Kidney Foundation, irrespective of diagnosis, the stage of the disease is based on the level of kidney function: Stage Description GFR(mL/min/1.73 m(2)) 1 Kidney damage with normal or decreased GFR 90 2 Kidney damage with mild decrease in GFR 60-89 3 Moderate decrease in GFR 30-59 4 Severe decrease in GFR 15-29 5 Kidney failure <15 (or dialysis) 65 Lymphopenia % 66 Anion gap measurement may be of limited value in the presence of any alkalosis, especially in a combined acid base disorder. . 67 A metabolite of Naproxen, O-desmethylnaproxen, has been shown to interfere with the Jendrassik-Corin method for measuring total bilirubin. Samples from patients who have taken Naproxen have shown spurious elevation in total bilirubin levels. 68 Because ethnic data is not always readily available, this report includes an eGFR for both -Americans and non- Americans. The National Kidney Disease Education Program (NKDEP) does not endorse the use of the MDRD equation for patients that are not between the ages of 18 and 70, are , have extremes of body size, muscle mass, or nutritional status, or are non- or non-. According to the National Kidney Foundation, irrespective of diagnosis, the stage of the disease is based on the level of kidney function: Stage Description GFR(mL/min/1.73 m(2)) 1 Kidney damage with normal or decreased GFR 90 2 Kidney damage with mild decrease in GFR 60-89 3 Moderate decrease in GFR 30-59 4 Severe decrease in GFR 15-29 5 Kidney failure <15 (or dialysis) 69 FINAL: NO GROWTH DAY 2 (<1,000 CFU/mL) 70 PLEASE NOTE NEW REFERENCE RANGE. 71 Lymphopenia % 72 Anion gap measurement may be of limited value in the presence of any alkalosis, especially in a combined acid base disorder. . 73 A metabolite of Naproxen, O-desmethylnaproxen, has been shown to interfere with the Jendrassik-Sunray method for measuring total bilirubin. Samples from patients who have taken Naproxen have shown spurious elevation in total bilirubin levels. 74 Because ethnic data is not always readily available, this report includes an eGFR for both -Americans and non- Americans. The National Kidney Disease Education Program (NKDEP) does not endorse the use of the MDRD equation for patients that are not between the ages of 18 and 70, are , have extremes of body size, muscle mass, or nutritional status, or are non- or non-. According to the National Kidney Foundation, irrespective of diagnosis, the stage of the disease is based on the level of kidney function: Stage Description GFR(mL/min/1.73 m(2)) 1 Kidney damage with normal or decreased GFR 90 2 Kidney damage with mild decrease in GFR 60-89 3 Moderate decrease in GFR 30-59 4 Severe decrease in GFR 15-29 5 Kidney failure <15 (or dialysis) 75 Anion gap measurement may be of limited value in the presence of any alkalosis, especially in a combined acid base disorder. . 76 Note change in reference range as of 04/24/08. The change was based on recommendations from the [place] [employer]. 77 Please note change in reference range effective 08 . 78 A metabolite of Naproxen, O-desmethylnaproxen, has been shown to interfere with the Jendrassik-Sunray method for measuring total bilirubin. Samples from patients who have taken Naproxen have shown spurious elevation in total bilirubin levels. 79 Because ethnic data is not always readily available, this report includes an eGFR for both -Americans and non- Americans. The National Kidney Disease Education Program (NKDEP) does not endorse the use of the MDRD equation for patients that are not between the ages of 18 and 70, are , have extremes of body size, muscle mass, or nutritional status, or are non- or non-. According to the National Kidney Foundation, irrespective of diagnosis, the stage of the disease is based on the level of kidney function: Stage Description GFR(mL/min/1.73 m(2)) 1 Kidney damage with normal or decreased GFR 90 2 Kidney damage with mild decrease in GFR 60-89 3 Moderate decrease in GFR 30-59 4 Severe decrease in GFR 15-29 5 Kidney failure <15 (or dialysis) 80 CHOLESTEROL INTERPRETATION: Desirable: Less than 200 MG/DL Borderline-High Risk: 200-239 MG/DL High-Risk: 240 MG/DL and over 81 HDL INTERPRETATION: Undesirable: High Risk: Less than 40 MG/DL Desirable: Low Risk: Greater than 60 MG/DL 82 LDL INTERPRETATION: Low Risk Optimal Level: LDL Less than 100 MG/DL Near or Above Optimal: LDL 100-129 MG/DL Borderline High Risk: LDL 130-159 MG/DL High Risk: LDL 160-189 MG/DL Very High Risk: LDL Greater than 189 MG/DL Procedures Date Code Description Status 2019 49231 EKG Tracing & Interpretation Completed 12/20/2018 41617 ECHO Transthoracic, Real-Time 2D With Doppler And Completed Color Flow 12/20/2018 19532 ECHO Transthoracic, Real-Time 2D With Doppler And Completed Color Flow 11/19/2018 47870 Inj/Aspir Major JT Or Bursa W/ US Completed 04/17/2018 [id number] Diabetic Retinal Eye Exam Completed 12/12/2017 64399 ECHO Transthoracic, Real-Time 2D With Doppler And Completed Color Flow 12/12/2017 98473 ECHO Transthoracic, Real-Time 2D With Doppler And Completed Color Flow 07/06/2017 97177 Destruction Of Benign Lesions Any Method 1-14 lesions Completed 05/30/2017 01241 Destruction Of Benign Lesions Any Method 1-14 lesions Completed 05/22/2017 [id number] Bone Mineral Density Test Completed 05/03/2017 [id number] Diabetic Retinal Eye Exam Completed 09/11/2015 89065 Stress Test Completed 09/11/2015 17586 Myocardial Perfusion Imaging Tomographic (Spect) Completed Multiple Studies 09/11/2015 45487 Myocardial Perfusion Imaging Tomographic (Spect) Completed Multiple Studies 08/24/2015 27646 EKG Tracing & Interpretation Completed 03/10/2015 [id number] Mammogram Completed 03/10/2015 [id number] Bone Mineral Density Test Completed 03/06/2014 14136 ECHO Transthoracic, Real-Time 2D With Doppler And Completed Color Flow 06/27/2013 [id number] Mammogram Completed 06/26/2012 [id number] Bone Mineral Density Test Completed 06/26/2012 [id number] Mammogram Completed 06/21/2011 [id number] Mammogram Completed 06/07/2011 19933 Treadmill Interp/Report Only Completed 06/07/2011 93636 Stress Test Supervsn W/Out I/R Completed 05/17/2011 04699 EKG Tracing & Interpretation Completed 05/17/2011 85854 Noninvasive Ear Or Pulse Oximetry For Oxygen Completed Saturation 05/06/2011 53664 ECHO Transthoracic, Real-Time 2D With Doppler And Completed Color Flow 05/11/2010 [id number] Mammogram Completed 05/07/2009 [id number] Bone Mineral Density Test Completed 09/22/2008 12575 EKG Tracing & Interpretation Completed 04/23/2008 23248 EKG Tracing & Interpretation Completed 04/23/2008 33686 EKG Tracing & Interpretation Completed 10/31/2000 [id number] Colonoscopy Completed Encounters Type Date Location Provider Dx Diagnosis Office Visit 2019 [facility] Deshawn Palomares Z01.810 Encounter for 3:00p Of Cinthia Zhou DO FACC preprocedural cardiovascular examination I35.0 Nonrheumatic aortic (valve) stenosis I10 Essential (primary) hypertension I63.9 Cerebral infarction, unspecified M16.12 Unilateral primary osteoarthritis, left hip Office Visit 12/05/2018 10:30a [facility] Swati Mckeon M25.552 Pain in left Of C.M.A. M.D. hip M16.12 Unilateral primary osteoarthritis, left hip Office Visit 11/12/2018 2:40p [facility] Internal Stephanie I10 Essential ( primary) Medicine - Katie Maier hypertension [place] M25.552 Pain in left hip I35.0 Nonrheumatic aortic (valve) stenosis Office Visit 09/10/2018 1:30p [facility] Swati Mckeon M25.552 Pain in left Of C.M.A. M.D. hip M16.12 Unilateral primary osteoarthritis, left hip Office Visit 08/23/2018 9:00a [facility] Internal Stephanieshira Maier M25.552 Pain in left Medicine M.DCuauhtemoc hip I10 Essential (primary) hypertension Office Visit 05/15/2018 3:00p [facility] Internal Stephanie Z00.00 Encntr for Sukhwinder Maier M.D. general adult medical exam w/o abnormal findings M54.9 Dorsalgia, unspecified Office Visit 03/13/2018 10:20a [facility] Dermatology Dirk Du MD L72.0 Epidermal cyst L82.1 Other seborrheic keratosis Z08 Encntr for follow-up exam after trtmt for malignant neoplasm Z85.828 Personal history of other malignant neoplasm of skin Office Visit 01/09/2018 9:40a [facility] Internal Stephanie M54.9 Dorsalgia, Medicine Katie Maier unspecified M25.552 Pain in left hip I10 Essential (primary) hypertension E78.5 Hyperlipidemia, unspecified Office Visit 11/09/2017 10:20a [facility] Internal Stephanie I10 Essential ( primary) Medicine Katie Maier hypertension J06.9 Acute upper respiratory infection, unspecified I34.0 Nonrheumatic mitral (valve) insufficiency Office Visit 05/30/2017 10:30a [facility] Dermatology Dirk Du, L82.1 Other seborrheic MD keratosis I78.8 Other diseases of capillaries R60.0 Localized edema B07.0 Plantar wart Z78.9 Other specified health status R20.8 Other disturbances of skin sensation S90.921A Unspecified superficial injury of right foot, init encntr Office Visit 02/23/2017 10:00a [facility] Internal Stephanie I10 Essential ( primary) Medicine Katie Maier hypertension K62.5 Hemorrhage of anus and rectum R35.0 Frequency of micturition K64.4 Residual hemorrhoidal skin tags Office Visit 08/25/2016 10:00a [facility] Internal Stephanie I10 Essential ( primary) Medicine Katie Maier hypertension D23.9 Other benign neoplasm of skin, unspecified G47.00 Insomnia, unspecified Office Visit 07/04/2016 10:40a [facility] Internal Chris Pereyra NP J01.00 Acute maxillary Medicine sinusitis, unspecified Office Visit 03/16/2016 4:20p [facility] Internal Starr Tian J01.00 Acute maxillary Medicine N.P. sinusitis, unspecified Office Visit 02/29/2016 4:20p [facility] Internal Starr Tian J01.00 Acute maxillary Medicine N.P. sinusitis, unspecified Office Visit 12/14/2015 2:00p Orthopedic Swati Mckeon, M16.11 Unilateral Services Of Katie primary C.M.A. osteoarthritis, right hip M17.0 Bilateral primary osteoarthritis of knee M25.462 Effusion, left knee M25.562 Pain in left knee M25.461 Effusion, right knee M25.561 Pain in right knee M54.5 Low back pain Office Visit 12/07/2015 2:20p [facility] Internal Stephanieshira Maier, M25.562 Pain in left Medicine M.DCuauhtemoc knee M25.561 Pain in right knee M25.551 Pain in right hip Office Visit 09/01/2015 9:40a [facility] Internal Stephanie M85.9 Disorder of bone Medicine Katie Maier density and structure, unspecified R06.02 Shortness of breath K21.9 Gastro-esophageal reflux disease without esophagitis E78.5 Hyperlipidemia, unspecified Office Visit 08/24/2015 10:20a [facility] Internal Chris Roddy, R06.02 Shortness of Medicine [employer] breath R07.9 Chest pain, unspecified R14.2 Eructation Office Visit 01/29/2015 10:00a [facility] Internal Chris Pereyra [employer] 784.91 Postnasal Drip Medicine 466.0 Bronchitis Acute 786.2 Cough Office 01/15/2015 [facility] Internal Chris Pereyra NP 466.0 Bronchitis Acute Visit 9:00a Medicine Office 11/05/2014 [facility] Internal Starr Tian, 788.43 Nocturia Visit 1:00p Medicine N.P. Office 07/22/2014 [facility] Internal Stephanie 272.0 Hypercholesterolemia Pure Visit 10:00a Sukhwinder Maier M.D. 719.44 Pain Joint Hand 424.0 Mitral Valve Disorder Office Visit 02/19/2014 1:00p [facility] Internal Stephanie V70.0 Examination Sukhwinder Maier M.D. General Medical Routine AT Health Care Facility 401.1 Hypertension Benign 272.0 Hypercholesterolemia Pure 437.8 Cerebrovascular Disease Other 424.1 Aortic Valve Disorder Office Visit 2014 11:40a [facility] Internal Starr Tian, 724.5 Backache Unspec Medicine N.P. Office Visit 06/20/2013 1:00p [facility] Internal Stephanie 401.1 Hypertension Sukhwinder Maier M.D. Benign 780.52 Insomnia Unspecified V04.81 Need For Prophylactic Vaccination & Inoculation/Influenza Office Visit 03/28/2013 4:20p [facility] Internal Grecia Abbasi, 789.04 Pain Abdominal Medicine Katie, FACP Left Lower Quadrant Office Visit 12/20/2012 2:40p [facility] Internal Stephanie V70.0 Examination Sukhwinder Maier M.D. General Medical Routine AT Health Care Facility 272.0 Hypercholesterolemia Pure 401.1 Hypertension Benign V76.10 Screening For Malignant Neoplasm Breast Office Visit 08/02/2012 9:30a [facility] Internal Nurse Visit A 401.1 Hypertension Medicine Benign Office Visit 06/19/2012 10:00a [facility] Internal Stephanie 401.1 Hypertension Medicine Katie Maier Benign 782.0 Skin Sensation Disturbance 272.0 Hypercholesterolemia Pure Office Visit 12/20/2011 10:20a [facility] Internal Stephanie V70.0 Examination Medicine Katie Maier General Medical Routine AT Health Care Facility 272.0 Hypercholesterolemia Pure 724.2 Lumbago V76.10 Screening For Malignant Neoplasm Breast V82.81 Special Screening For Osteoporosis V12.50 History Personal Circulatory Diseases Unspec Office Visit 10/11/2011 11:20a [facility] Internal Stephanie 729.5 Pain In Limb Sukhwinder Maier M.D. Office Visit 06/07/2011 10:30a [facility] Guy Oliva 786.50 Pain Chest Katie Munoz Unspec 785.2 Murmur Cardiac Undiagnosed 401.1 Hypertension Benign Office Visit 05/17/2011 DO Not Use Stephanie 786.05 Shortness Of 1:20p Franny Maier M.D. Breath v04.81 Need For Prophylactic Vaccination & Inoculation/Influenza Office Visit 04/28/2011 DO Not Use Stephanie 401.1 Hypertension 10:20a Franny Maier M.D. Benign 272.0 Hypercholesterolemia Pure 785.2 Murmur Cardiac Undiagnosed V76.10 Screening For Malignant Neoplasm Breast Office Visit 03/24/2011 DO Not Use Starr Tian, 680.8 Carbuncle & 11:00a Franny N.P. Furuncle Spec Sites Other Office Visit 10/28/2010 DO Not Use Stephanie 401.1 Hypertension 10:30a Franny Maier M.D. Benign Office Visit 09/09/2010 DO Not Use Stephanie 789.00 Pain Abdominal 11:30a Franny Maier M.D. Unspec Site Office Visit 04/29/2010 DO Not Use Stephanie V70.0 Examination 10:45a Franny Maier M.D. General Medical Routine AT Health Care Facility 401.1 Hypertension Benign 272.0 Hypercholesterolemia Pure 569.49 Rectum & Anus Disorder Other Office Visit 11/03/2009 DO Not Use [place], 465.9 URI Upper 2:45p Franny Medel M.D. Respiratory Infections Acute Unspec Sites 786.2 Cough 401.1 Hypertension Benign Office Visit 07/22/2009 DO Not Use Starr Asmita, 466.0 Bronchitis Acute 2:45p Cinthia-Dutton N.P. Office Visit 04/27/2009 DO Not Use [place], V70.0 Examination 2:30p Franny Medel M.D. General Medical Routine AT Health Care Facility 729.5 Pain In Limb 401.1 Hypertension Benign 272.0 Hypercholesterolemia Pure 443.9 Peripheral Vascular Disease Unspec V04.81 Need For Prophylactic Vaccination & Inoculation/Influenza Office Visit 01/28/2009 DO Not Use Starr Tian, 727.43 Ganglion Unspec 4:15p Cinthia-Dutton N.P. Office Visit 11/20/2008 DO Not Use [place], 443.9 Peripheral 2:45p Franny Medel M.D. Vascular Disease Unspec 715.94 Osteoarthrosis Unspec Genlzd Or Localized Hand 401.1 Hypertension Benign Office Visit 09/22/2008 DO Not Use [place], V72.84 Examination 3:15p Franny Medel M.D. Preoperative Unspec 443.9 Peripheral Vascular Disease Unspec 401.1 Hypertension Benign Office 05/22/2008 DO Not Use [place], 272.0 Hypercholesterolemia Visit 2:45p Franny Medel M.D. Pure 443.9 Peripheral Vascular Disease Unspec 311 Depressive Disorder Not Elsewhere Spec Office Visit 04/23/2008 DO Not Use [place], 443.9 Peripheral 10:45a Franny Medel M.D. Vascular Disease Unspec 780.79 Malaise And Fatigue Other 401.1 Hypertension Benign 311 Depressive Disorder Not Elsewhere Spec V70.0 Examination General Medical Routine AT Health Care Facility Office Visit 12/04/2007 DO Not Use [place], 272.4 Hyperlipidemia 2:45p Franny Medel M.D. Other Unspec 401.1 Hypertension Benign Office 10/11/2007 DO Not Use [place], 272.0 Hypercholesterolemia Visit 2:30p Franny Medel M.D. Pure 443.9 Peripheral Vascular Disease Unspec 401.1 Hypertension Benign Office Visit 04/10/2007 DO Not Use [facility], 401.1 Hypertension 2:45p Franny Medel M.D. 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 Examination Plan of Treatment Future Appointment(s):02/12/2019 1:30 pm - Prabhakar Shah PA-C at [facility].02/12/2019 1:30 pm - RIGO Blair at [facility].02/25/2019 10:00 am - Swati Mckeno M.D. at [facility].02/12/2019 1:30 pm - Swati Mckeon M.D. at [facility]..05/20/2019 3:00 pm - Stephanie Maier M.D. at [facility] Internal Fkhowdlf63/30/2019 - Stephanie Maier M.D.Z01.818 Encounter for other preprocedural examinationComments:Stop the aspirin as per instructions from Dr. Meneses not take ibuprofen, Motrin, Advil, Aleve, naproxen. Tylenol is OKTake your diltiazem with a sip of water on the morning of afvelknB63 Essential ( primary) hypertensionComments:Your blood pressure is fine. Continue the same zwvvyhjnfmM22.12 Unilateral primary osteoarthritis, left hipL98.9 Disorder of the skin and subcutaneous tissue, unspecifiedReferral:Dirk Du MD, Dermatology
--- OUTSIDE RECORDS SUMMARY | 2019-02-12 09:55 | XMS REPORT | Continuity of Care Document ---
:1930 External Reference #:[id number] Author Name Jana Arboleda Care Team Providers Name Role Phone Stephanie Maier MD Primary Care Physician Unavailable Payers Date Identification Numbers Payment Provider Subscriber Effective: 2012 Policy Number: [id number] Medicare Blue Ppo Tiarra Sterling Group Number: [id number] [address] [address] PayID: [id number] [place] [address] Expires: 2012 Policy Number: [id number] Medicare Blue Ppo Tiarra Sterling Group Number: MEDICARE BLUE PPO [address] [address] Group Name: [place] [address] PayID: [id number] Problems Active Problems Provider Date [...] With Alone Drives without problems. Worked at [employer] in 2009. 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 [id number] Tablets Proctosol HC Use as directed 28.350gm Stephanie Maier, 03/01/2010 2.5% M.DCuauhtemoc Cream Eq Fiber Therapy 2 in in the Unknown morning 500mg Tablets Tylenol 8 Hour 1 tab every 6 Unknown 650mg hours as needed Tablets ER for pain Eylea prn Unknown 2mg/0.05ML Solution Eye Vitamins daily Unknown Capsules One Daily For Women 1 po qd Unknown Tablets Travatan each eye nightly Unknown 0.004% Solution History Medications Tramadol HCL 1-2 tablets every 42tabs M54.9 [facility] 05/15/2018 - 50mg 6 hours as needed [...] Zolpidem Tartrate 1/2-1 po tablet 30tabs 780.52 Stephanie 06/20/2013 - 5mg at bedtime as Katie Maier 2014 Tablets needed Zostavax 1 dose s/c 1units [facility] 03/28/2012 - Solution Katie Maier 06/18/2012 Rec Diltiazem HCL ER Take One Capsule 30caps 786.05 [facility] 02/13/2012 - By Mouth Once Katie Maier 06/19/2012 180mg Caps ER 24HR Daily Atorvastatin Calcium 1 po qd 90tabs [facility] 09/21/2011 - Katie Maier 01/01/2012 40mg Tablets Diltiazem CD 1 PO qd 30caps 786.05 [facility] 05/17/2011 - 180mg Katie Maier 02/13/2012 Caps ER 24HR Lisinopril 1 tablet once 30tabs 786.05 Stephanie - 10mg daily Katie Maier 05/17/2011 Tablets Cipro 1 tablet twice a 20tabs Unknown - 500mg Tablets day 10/28/2010 Crestor Take One Tablet 30tabs [facility] - 40mg Tablets By Mouth AT Katie Maier 09/21/2011 Bedtime Aleve 1 po prn 60caps Unknown - 220mg Capsules 06/19/2012 Flonase Allergy 2 sprays each Unknown - Relief nostril once 08/24/2015 50mcg/Act daily Suspension Medications Administered in Office Medication SIG Qnty Indications Ordering Provider Date Depomedrol 40MG Swati Mckeon M.D. 11/19/2018 Injection Inj, Regadenoson, 0.1 MG Deshawn Zhou DO [facility] 09/11/2015 Injection Inj, Regadenoson, 0.1 MG RIGO Hooker 09/11/2015 Injection Technetium TC 99M Deshawn Zhou DO [facility] 09/11/2015 Tetrofosmin, Per Unit Dose Up To 40 Millicuries Injection Technetium TC 99M RIGO Hooker 09/11/2015 Tetrofosmin, Per Unit Dose Up To 40 Millicuries Injection Immunizations CPT Code Status Date Vaccine Lot # [id number] Given 06/05/2018 Influenza Virus Vaccine, Quadrivalent, Split, Preservative Free 10168 Given 05/11/2017 Influenza Virus Vaccine, Quadrivalent, Split, [id number] Preservative Free 10547 Given 06/17/2016 Influ Virus Vaccine, Quadrivalent, Split Virus, [id number] [address] Given 06/13/2015 Influenza Virus Vaccine, Quadrivalent, Split, [id number] Preservative Free 28891 Given 02/24/2015 Pneumococcal Conjugate Vaccine 13 Valent For [id number] Intramuscular Use 75759 Given 06/17/2014 Influenza Virus Vaccine, Quadrivalent, Split, [id number] Preservative Free 40882 Given 06/20/2013 Flu Vaccine Split Virus Preservative Free For [id number] Indiv 3Yr Older [id number] Given 05/30/2012 Fluzone Vaccine 64920 Given 03/29/2012 Zoster (Zostavax) [id number] Given 05/17/2011 Afluria Vaccine [id number] 24582 Given 07/09/2010 Influenza Virus 3Yrs & Over [id number] 29593 Given 04/27/2009 Influenza Virus 3Yrs & Over 71483 Given 06/25/2008 Influenza Virus 3Yrs & Over 32524 Given 06/25/2008 Influenza Virus 3Yrs & Over 38956 Given 06/28/2007 Influenza Virus 3Yrs & Over Vital Signs Date Vital Result Comment 2019 2:55pm Height 63 inches 5'3" Weight [...] Date Facility Test Result H/L Range Note Lipid Profile 01/15/2019 [facility] Triglycerides 132 mg/dL 1 (Trig/Chol/HDL) [address] [place] [address] [phone] Cholesterol 143 mg/dL 2 HDL Cholesterol 46.8 mg/dL 3 LDL Cholesterol 70 mg/dL 4 Comp Metabolic Panel 01/15/2019 [facility] Sodium 141 mmol/L N 135-145 [address] [place] [address] [phone] Potassium 4.1 mmol/L N 3.5-5.0 Chloride 105 [...] Egfr Non- 84.5 >60 Egfr 102.3 >60 5 Xray 11/19/2018 [facility] Inj/Aspir Major JT <pending> Or Bursa W/ US CBC Auto Diff 01/09/2018 [facility] White Blood Count 8.2 10^3/ uL N 3.5-10.8 [address] [place] [address] [phone] Red Blood Count 4.11 10^6/uL N 4.0-5.4 [...] 0-2 Nucleated Red Blood Cells % 0 Protein 01/09/2018 [facility] Total 6.7 g/dL 6.3 - Electrophoresis Protein(Pep) 7.9 [place] [address] [phone] Albumin 3.2 g/dL Abnormal 3.4-4.7 Alpha-1 Globulin 0.2 g/dL 0.1-0.3 Alpha-2 Globulin 1.2 g/dL Abnormal 0.6-1.0 Beta Globulin 1.2 g/dL 0.7-1.2 Gamma Globulin 0.9 g/dL 0.6-1.6 Albumin/Globulin Ratio 0.93 Impression See Comment 6 Laboratory test 01/09/2018 [facility] Erythrocyte Sed 15 mm/Hr N 0-[address] [place] [address] [phone] Lipid Profile 01/09/2018 [facility] Triglycerides 169 mg/dL 7 (Trig/Chol/HDL) [place] [address] [phone] Cholesterol 140 mg/dL 8 HDL Cholesterol 42.0 mg/dL 9 LDL Cholesterol 64 mg/dL 10 Comp Metabolic Panel 01/09/2018 [facility] Sodium 139 mmol/L N 139-[address] [place] [address] [phone] Potassium 4.5 mmol/L N 3.5-5.0 Chloride 105 [...] Egfr Non- 87.8 >60 Egfr 112.9 >60 11 Lipid Profile 02/28/2017 [facility] Triglycerides 159 mg/dL N 12 (Trig/Chol/HDL) [address] [place] [address] [phone] Cholesterol 140 mg/dL N 13 HDL Cholesterol 39.3 mg/dL N 14 LDL Cholesterol 69 mg/dL N 15 Comp Metabolic Panel 02/28/2017 [facility] Sodium 138 mmol/L N 133-145 [address] [place] [address] [phone] Potassium 4.1 mmol/L N 3.5-5.0 Chloride 107 [...] 91.1 N >60 Egfr 117.1 N >60 16 CBC Auto Diff 02/28/2017 [facility] White Blood 7.1 10^3/uL N 3.5-10.[address] [place] [address] [phone] Red Blood Count 4.19 10^6/uL N 4.0-5.4 [...] % 0 N Urine Culture And 02/23/2017 [facility] Urine Culture SEE RESULT [address] [place] [address] [phone] Ua Routine 02/23/2017 [facility] Ua Specific 1.005 [place] Ua PH 8 Ua Color yellow Ua Appera clear Ua WBC trace Ua Protein neg Ua Glucose neg Ua Ketones neg Ua Bilirubin neg Ua Urobilinogen neg Ua Nitrite neg Ua Occult Blood neg Lipid Profile 08/18/2016 [facility] Triglycerides 137 mg/dL N 18 (Trig/Chol/HDL) [address] [place] [address] [phone] Cholesterol 147 mg/dL N 19 HDL Cholesterol 48.2 mg/dL N 20 LDL Cholesterol 71 mg/dL N 21 Comp Metabolic Panel 08/18/2016 [facility] Sodium 140 mmol/L N 133-[address] [place] [address] [phone] Potassium 4.2 mmol/L N 3.5-5.0 Chloride 105 [...] 91.3 N >60 Egfr 117.4 N >60 22 Comp Metabolic Panel 08/25/2015 [facility] Sodium 140 mmol/L N 133-145 [address] [place] [address] [phone] Potassium 4.1 mmol/L N 3.5-5.0 Chloride 105 [...] 77.0 N >60 Egfr 99.0 N >60 23 Lipid Profile 08/25/2015 [facility] Triglycerides 149 mg/dL N 24 (Trig/Chol/HDL) [address] [place] [address] [phone] Cholesterol 157 mg/dL N 25 HDL Cholesterol 47.7 mg/dL N 26 LDL Cholesterol 80 mg/dL N 27 CKMB 08/25/2015 [facility] CKMB ng/mL 1.7 ng/mL N 0.6-6.[address] [place] [address] [phone] Laboratory test 08/25/2015 [facility] Troponin-I 0.00 ng/mL N <0.03 [address] (TnI) [place] [address] [phone] CBC Auto Diff 08/25/2015 [facility] White Blood 6.5 10^3/uL N 3.5-10.[address] [place] [address] [phone] Red Blood Count 4.28 10^6/uL N 4.0-5.4 [...] Cells % 0 N Laboratory test 08/25/2015 [facility] B-Type Natriuretic 74 pg/ mL N [address] [place] [address] [phone] Lipid Profile 07/30/2014 [facility] Triglycerides 202 mg/dL N 30, 31 (Trig/Chol/HDL) [address] [place] [address] [phone] Cholesterol 152 mg/dL N 32 HDL Cholesterol 44.5 mg/dL N 33 LDL Cholesterol 67 mg/dL N 34 Comp Metabolic Panel 07/30/2014 [facility] Sodium 139 mmol/L N 133-[address] [place], [place] [phone] Potassium 4.2 mmol/L N 3.5-5.0 35 Chloride 104 mmol/L N 101-111 Co2 Carbon [...] 85.3 N >60 Egfr 109.7 N >60 36 Throat-Beta 01/14/2014 [facility] Throat Beta Strep (SEE 37 , [address] Culture NOTE) [place] [address] [phone] Surgical 12/23/2013 [facility] S RUN DATE: [address] 12/24/ [place] [address] <SEE [phone] NOTE> Surgical 12/17/2013 [facility] S RUN DATE: [address] 12/17/ [place] [address] <SEE [phone] NOTE> Lipid Profile 06/13/2013 [facility] Triglycerides 155 mg/dL 40-2 (Trig/Chol/HDL) [address] [place] [address] [phone] Cholesterol 149 mg/dL Less than 200 HDL Cholesterol 47 mg/dL 40-60 41 Cholesterol/HDL Ratio 3.2 Average 1-4.44 LDL Cholesterol 71.0 Less Than 100 42 Comp Metabolic Panel 06/13/2013 [facility] Sodium 140 mmol/L 133-[address] [place] [address] [phone] Potassium 4.1 mmol/L 3.5-5.0 Chloride 107 mmol/L [...] Egfr Non- 95.5 >60 Egfr 122.8 >60 43 CBC W/Electronic 04/01/2013 [facility] White Blood 6.9 10^3/uL 4.8-10.[address] [place] [address] [phone] Red Blood Count 4.12 10^6/uL 4.0-5.4 Hemoglobin [...] Blood Cells % 0 CMP Panel 04/01/2013 [facility] Sodium 141 mmol/L 133-145 [address] [place] [address] [phone] Potassium 4.0 mmol/L 3.5-5.0 Chloride 107 mmol/L [...] Egfr Non- 79.9 >60 Egfr 102.8 >60 44 Ua Routine 03/28/2013 [facility] Ua Specific [place] 1.005 Ua PH 5.0 Ua Color neg Ua Appera neg Ua WBC neg Ua Protein neg Ua Glucose neg Ua Ketones neg Ua Bilirubin neg Ua Urobilinogen neg Ua Nitrite neg Ua Occult Blood neg Laboratory test finding 06/26/2012 [facility] Alt 26 U/L 14- 54 45 [address] [place] [address] [phone] Ast 25 U/L 12-42 46 TSH (Thyroid Stimulating Horm) 2.57 MIU/ML 0.34-5.60 47 Vitamin B12 336 pg/mL 180-914 48 Lipid Profile 06/26/2012 [facility] Triglycerides 95 mg/dL 40 -200 (Trig/Chol/HDL) [address] [place] [address] [phone] Cholesterol 157 mg/dL Less than 200 49 HDL Cholesterol 57 mg/dL 40-60 50 Cholesterol/HDL Ratio 2.8 AVERAGE 1-4.44 LDL Cholesterol 81.0 mg/dL Less Than 100 Comp Metabolic Panel 12/27/2011 [facility] Sodium 140 mmol/L 135-145 [address] [place] [address] [phone] Potassium 4.1 mmol/L 3.5-5.0 Chloride 105 mmol/L 101-111 Co2 (Carbon Dioxide) 31.0 mmol/L 22-32 Anion Gap 4.0 mmol/L 2-11 51 Glucose 96 mg/dL 70-100 BUN 16 mg/dL 6-24 Creatinine 0.8 mg/dL 0.50-1.40 One Over Creatinine 1.25 BUN/Creatinine Ratio 20.0 8-20 Calcium 9.3 mg/dL 8.1-9.9 Total Protein 6.2 GM/DL 6.2-8.1 Albumin 3.8 GM/DL 3.2-5.2 Globulin 2.4 GM/DL 2-4 Albumin/Globulin Ratio 1.6 1-3 Bilirubin Total 0.5 mg/dL 0.4-1.5 52 Alkaline Phosphatase 77 U/L 30-110 Alt (SGPT) 28 U/L 14-54 Ast (Sgot) 27 U/L 12-42 eGFR Non- 68.8 > 60 eGFR 88.5 > 60 53 Lipid Profile 12/27/2011 [facility] Triglyceride 137 mg/dL 40 -200 (Trig/Chol/HDL) [address] [place] [address] [phone] Cholesterol 184 mg/dL Less Than 200 54 High Density Lipoprotein 50 mg/dL 40-60 55 Cholesterol/HDL Ratio 3.68 AVERAGE 1-4.44 Low Density Lipoprotein 107 mg/dL High Less Than 100 56 Lipid Profile 05/17/2011 [facility] Triglyceride 92 mg/dL 40- 200 (Trig/Chol/HDL) [address] [place] [address] [phone] Cholesterol 156 mg/dL Less Than 200 57 High Density Lipoprotein 46 mg/dL 40-60 58 Cholesterol/HDL Ratio 3.39 AVERAGE 1-4.44 Low Density Lipoprotein 92 mg/dL Less Than 100 59 Comp Metabolic Panel 05/17/2011 [facility] Sodium 142 mmol/L 135-[address] [place] [address] [phone] Potassium 4.6 mmol/L 3.5-5.0 Chloride 107 mmol/L 101-111 Co2 (Carbon Dioxide) 30.0 mmol/L 22-32 Anion Gap 5.0 mmol/L 2-11 60 Glucose 103 mg/dL High 70-100 BUN 12 mg/dL 6-24 Creatinine 0.7 mg/dL 0.50-1.40 One Over Creatinine 1.42 BUN/Creatinine Ratio 17.1 8-20 Calcium 9.4 mg/dL 8.1-9.9 Total Protein 6.3 GM/DL 6.2-8.1 Albumin 3.7 GM/DL 3.2-5.2 Globulin 2.6 GM/DL 2-4 Albumin/Globulin Ratio 1.4 1-3 Bilirubin Total 0.5 mg/dL 0.4-1.5 61 Alkaline Phosphatase 61 U/L 30-110 Alt (SGPT) 25 U/L 14-54 Ast (Sgot) 28 U/L 12-42 eGFR Non- 80.3 > 60 eGFR 103.3 > 60 62 Manual Differential 09/09/2010 [facility] Polysegmented 82 % 38-[address] [place] [address] [phone] Band Neutrophil 4 % 0-8 Lymphocyte 11 % Low 25-47 Monocyte 3 % 0-13 Absolute Neutrophil Count 9.9 RBC Morphology NORMAL CBC With 09/09/2010 [facility] White Blood 11.6 CUMM High 4.8- 10.8 Electronic Diff [address] [place] [address] [phone] Red Cell Count 3.99 CUMM Low 4.2-5.4 Hemoglobin 12.9 g/dL 12.0-16.0 Hematocrit 38 % 35-47 Mean Corpuscular Volume 95 um3 79-97 Mean Corpuscular Hemoglob 32 pg High 27-31 Mean Corpuscular HGB Cone 34 g/dL 32-36 Redcell Distribution WDTH 14 % 10.5-15 Platelet Count 259 CUMM 150-450 Mean Platelet Volume 8.4 um3 7.4-10.4 63 Comp Metabolic Panel 09/09/2010 [facility] Sodium 137 mmol/L 135-[address] [place] [address] [phone] Potassium 4.4 mmol/L 3.5-5.0 Chloride 101 mmol/L 101-111 Co2 (Carbon Dioxide) 27.0 mmol/L 22-32 Anion Gap 9.0 mmol/L 2-11 64 Glucose 80 mg/dL 70-100 BUN 10 mg/dL 6-24 Creatinine 0.80 mg/dL 0.50-1.40 One Over Creatinine 1.20 BUN/Creatinine Ratio 12.5 8-20 Calcium 9.1 mg/dL 8.1-9.9 Total Protein 6.1 GM/DL Low 6.2-8.1 Albumin 3.4 GM/DL 3.2-5.2 Globulin 2.7 GM/DL 2-4 Albumin/Globulin Ratio 1.3 1-3 Bilirubin Total 0.7 mg/dL 0.4-1.5 65 Alkaline Phosphatase 75 U/L 30-110 Alt (SGPT) 24 U/L 14-54 Ast (Sgot) 25 U/L 12-42 eGFR Non- 73.4 > 60 eGFR 88.8 > 60 66 Urine Culture & 09/01/2010 [facility] Urine Culture NG 67 [address] [facility] [place] [address] [phone] Laboratory test 09/01/2010 [facility] Amylase 48 U/L 20-[address] [place] [phone] Lipase 18 U/L Low 22-51 C Reactive Protein 2.3 mg/dL High Less Than 0.5 Laboratory test 09/01/2010 [facility] Stool For NEGATIVE Negative finding [address] [facility] [place] [address] [phone] CBC With 09/01/2010 [facility] White Blood 6.6 CUMM 4.8-10.8 Electronic Diff [address] [facility] [place] [address] [phone] Red Cell Count 4.11 CUMM Low 4.2-5.4 [...] Eosinophils 0.1 0-0.6 Abs Basophils 0 0-0.2 69 Urinalysis W/Microscopic 09/01/2010 [facility] Ua Color YELLOW Yellow [address] [place] [address] [phone] Appearance-Urine CLEAR Clear Specific [place]-Ur 1.027 1.010-1.030 Esterase-Urine 1+ Abnormal Negative Nitrite NEGATIVE Negative [place]-Pv-QRU NEGATIVE Negative Protein-Urine TRACE Abnormal Negative PH-Urine 5.5 5-9 Blood-Urine TRACE Abnormal Negative Ketones-Urine NEGATIVE Negative Bilirubin-Ur NEGATIVE Negative Glucose-Urine NEGATIVE Negative WBC-Urine 5-10 Abnormal 0-5 RBC-Urine 0-2 0-2 Mucus Urine MODERATE None Epith Cells-Ur FEW None Comp Metabolic Panel 09/01/2010 [facility] Sodium 137 mmol/L 135-145 [address] [place] [address] [phone] Potassium 4.3 mmol/L 3.5-5.0 Chloride 106 mmol/L 101-111 Co2 (Carbon Dioxide) 24.0 mmol/L 22-32 Anion Gap 7.0 mmol/L 2-11 70 Glucose 110 mg/dL High 70-100 BUN 18 mg/dL 6-24 Creatinine 0.70 mg/dL 0.50-1.40 One Over Creatinine 1.40 BUN/Creatinine Ratio 25.7 High 8-20 Calcium 8.8 mg/dL 8.1-9.9 Total Protein 6.2 GM/DL 6.2-8.1 Albumin 3.6 GM/DL 3.2-5.2 Globulin 2.6 GM/DL 2-4 Albumin/Globulin Ratio 1.4 1-3 Bilirubin Total 0.7 mg/dL 0.4-1.5 71 Alkaline Phosphatase 62 U/L 30-110 Alt (SGPT) 23 U/L 14-54 Ast (Sgot) 25 U/L 12-42 eGFR Non- 85.6 > 60 eGFR 103.5 > 60 72 Comp Metabolic Panel 05/05/2010 [facility] Sodium 141 mmol/L 135-145 [address] [place] [address] [phone] Potassium 4.1 mmol/L 3.5-5.0 Chloride 106 mmol/L 101-111 Co2 (Carbon Dioxide) 29.0 mmol/L 22-32 Anion Gap 6.0 mmol/L 2-11 73 Glucose 85 mg/dL 70-100 74 BUN 19 mg/dL 6-24 Creatinine 0.70 mg/dL 0.50-1.40 One Over Creatinine 1.40 BUN/Creatinine Ratio 27.1 High 8-20 Calcium 9.5 mg/dL 8.1-9.9 75 Total Protein 6.4 GM/DL 6.2-8.1 Albumin 3.9 GM/DL 3.2-5.2 Globulin 2.5 GM/DL 2-4 Albumin/Globulin Ratio 1.6 1-3 Bilirubin Total 0.7 mg/dL 0.4-1.5 76 Alkaline Phosphatase 52 U/L 30-110 Alt (SGPT) 23 U/L 14-54 Ast (Sgot) 22 U/L 12-42 eGFR Non- 85.6 > 60 eGFR 103.5 > 60 77 Lipid Profile 05/05/2010 [facility] Triglyceride 182 mg/dL 40 -200 (Trig/Chol/HDL) [address] [place] [address] [phone] Cholesterol 156 mg/dL Less Than 200 78 High Density Lipoprotein 37 mg/dL Low 40-60 79 Cholesterol/HDL Ratio 4.22 AVERAGE 1-4.44 Low Density Lipoprotein 83 mg/dL Less Than 100 80 1 Desirable: <150 Borderline High: 150-199 High: 200-499 Very High: >500 2 Desirable: <200 Borderline High: 200-239 High: >239 3 Low: <40 Desirable: 40-60 High: >60 4 Desirable: <100 Near Optimal: 100-129 Borderline High: 130-159 High: 160-189 Very High: >189 5 Because ethnic data is not always readily [...] 15-29 5 Kidney failure <15 (or dialysis) 6 RESULT: No apparent monoclonal protein on serum electrophoresis. Test Performed by: [address] [address] 7 Desirable: <150 Borderline High: 150-199 High: 200-499 Very High: >500 8 Desirable: <200 Borderline High: 200-239 High: >239 9 Low: <40 Desirable: 40-60 High: >60 10 Desirable: <100 Near Optimal: 100-129 Borderline High: 130-159 High: 160-189 Very High: >189 11 Because ethnic data is not always readily [...] 15-29 5 Kidney failure <15 (or dialysis) 12 Desirable <150 Borderline high 150-199 High 200-499 Very High >500 13 Desirable <200 Borderline high 200-239 High >239 14 Low <40 Desirable: 40-60 High: >60 15 Desirable: <100 mg/dL Near Optimal: 100-129 mg/dL Borderline High: 130-159 mg/dL High: 160-189 mg/dL Very High: >189 mg/dL 16 Because ethnic data is not always readily [...] 15-29 5 Kidney failure <15 (or dialysis) 17 SEE RESULT BELOW Name: TIARRA STERLING : [address]: Stephanie Maier MD Acct: [id number] Unit: [id number] AGE: 87 Location: [facility] Re02/23/17 SEX: F Status: REG REF SPEC: [id number] TAMERA: 02/23/17-1214 [facility] DR: Stephanie Maier MD REQ: [id number] RECD: 02/23/17 STATUS: COMP _ SOURCE: URINE [facility]: ORDERED: Urine Culture COMMENTS: [id number] Urine Source: Random Procedure Result Reported Site Urine Culture Final 02/24/17- 1605 ML No Growth (<1,000 CFU/mL) * ML - MAIN LAB ([facility]) . END OF REPORT * ML=Testing performed at Main Lab DEPARTMENT OF PATHOLOGY, [address] [place] [address] Reuben Contreras M.D. Director [facility] # [id number] 18 Desirable <150 Borderline high 150-199 High 200-499 Very High >500 19 Desirable <200 Borderline high 200-239 High >239 20 Low <40 Desirable: 40-60 High: >60 21 Desirable: <100 mg/dL Near Optimal: 100-129 mg/dL Borderline High: 130-159 mg/dL High: 160-189 mg/dL Very High: >189 mg/dL 22 Because ethnic data is not always readily [...] 15-29 5 Kidney failure <15 (or dialysis) 23 Because ethnic data is not always readily [...] 15-29 5 Kidney failure <15 (or dialysis) 24 Desirable <150 Borderline high 150-199 High 200-499 Very High >500 25 Desirable <200 Borderline high 200-239 High >239 26 Low <40 Desirable: 40-60 High: >60 27 Desirable: <100 mg/dL Near Optimal: 100-129 mg/dL Borderline High: 130-159 mg/dL High: 160-189 mg/dL Very High: >189 mg/dL 28 Reference Range and Interpretation: TnI (ng/mL) Interpretation Less Than 0.03 ng/mL Not supportive of diagnosis of TN 0.03 - 0.50 ng/mL Indeterminate: suggest serial studies if clinically indicated. Greater than 0.5 ng/mL Consistent with diagnosis of TN 29 >100 to <200 pg/mL: likely compensated congestive heart failure (CHF) 200 to 400 pg/mL: likely moderate CHF >400 pg/mL: likely moderate to severe CHF 30 PT IS FASTING 31 Desirable <150 Borderline high 150-199 High 200-499 Very High >500 32 Desirable <200 Borderline high 200-239 High >239 33 Low <40 Desirable: 40-60 High: >60 34 Desirable <100 Near Optimal 100-129 Borderline high 130-159 High 160-189 Very High >189 35 Potassium reference range changed effective 07/06/14 36 Because ethnic data is not always readily [...] 15-29 5 Kidney failure <15 (or dialysis) 37 Comment: collected by sarah saavedra 38 RUN DATE: 01/16/14 [facility] LAB LIVE PAGE 1 RUN TIME: [address] [place] [address] Specimen Inquiry Name: TIARRA STERLING : [address]: Jann Rondon MD Acct: [id number] Unit: [id number] AGE: 83 Location: [facility] Re01/14/14 SEX: F Status: DEP ER SPEC: [id number] TAMERA: 01/14/14-[address]: Jann Rondon MD REQ: [id number] RECD: 01/14/14-1210 STATUS: FLORA VARGAS DR: Stephanie Maier MD _ SOURCE: THROAT SPDESC: ORDERED: Throat Beta Str COMMENTS: Comment: collected by sarah saavedra Procedure Result Verified Site Throat Beta Strep Culture Final 01/16/14- 0900 ML Negative For Group A Beta Streptococcus END OF REPORT * ML=Testing performed at Main Lab DEPARTMENT OF PATHOLOGY, [facility] [address] [place], [place] [address] Reuben Contreras M.D. Director [facility] # [id number] RUN DATE: 12/24/13 [facility] LAB LIVE PAGE 1 RUN TIME: 1357 [facility] Locally [place], [place] [address] Specimen Inquiry Name: TIARRA STERLING : [address]: Facundo Flaherty MD Acct: [id number] Unit: [id number] AGE: 83 Location: [place] Re12/23/13 SEX: F Status: REG SDC SPEC: [id number] TAMERA: 12/23/13- SUBM DR: Facundo Flaherty MD REQ: [id number] RECD: 12/23/139570 STATUS: JERAMY VARGAS DR: Stephanie Maier MD [...] performed at Main Lab DEPARTMENT OF PATHOLOGY, [facility] [address] [place], [place] [address] Reuben Contreras M.D. Director [facility] Permit #[id number] 40 RUN DATE: 12/17/13 [facility] LAB LIVE PAGE 1 RUN TIME: 7653 [facility] Locally [place], [place] [address] Specimen Inquiry Name: TIARRA STERLING : [address]: Facundo Flaherty MD Acct: [id number] Unit: [id number] AGE: 83 Location: [facility] Re12/17/13 SEX: F Status: REG REF SPEC: [id number] TAMERA: 12/17/13- SUBM DR: Facundo Flaherty MD REQ: [id number] RECD: 12/17/13 STATUS: JERAMY VARGAS DR: Stephanie Medina MD _ ORDERED: Consult w/slide FINAL DIAGNOSIS Skin, right nasolabial fold, shave biopsy: A. Basal cell carcinoma, nodular type. B. Basal cell carcinoma is broadly transected along the base of this shave biopsy. PRE-OPERATIVE DIAGNOSIS Basal cell carcinoma. GROSS DESCRIPTION Received is one glass slide labeled [id number], Tiarra Sterling QBotixcandie . Accompanying this slide is a pathology report labeled Stephanie Sterling, [id number] [facility], [address] [place] [address], [place] [address] Brooke Lucero on October 31, 2013. Signed (signature on file) Reuben Contreras MD [id number] END OF REPORT * ML=Testing performed at Main Lab DEPARTMENT OF PATHOLOGY, [address] [place] [address] Reuben Contreras M.D. Director [facility] Permit #[id number] 41 HDL Interpretation: Undesirable: High Risk: Less than 40 mg/dL Desirable: Low Risk: Greater than 60 mg/dL 42 LDL Interpretation: Low Risk Optimal Level: LDL Less than 100 mg/dL Near or Above Optimal: LDL 100-129 mg/dL Borderline High Risk: LDL 130-159 mg/dL High Risk: LDL 160-189 mg/dL Very High Risk: LDL Greater than 189 mg/dL 43 Because ethnic data is not always readily [...] 15-29 5 Kidney failure <15 (or dialysis) 44 Because ethnic data is not always readily [...] 15-29 5 Kidney failure <15 (or dialysis) 45 PT IS FASTING 46 PT IS FASTING 47 PT IS FASTING 48 PT IS FASTING 49 Desirable: Less than 200 MG/DL Borderline-High Risk: 200-239 MG/DL High-Risk: 240 MG/DL and over 50 HDL Interpretation: Undesirable: High Risk: Less than 40 MG/DL Desirable: Low Risk: Greater than 60 MG/DL 51 Anion gap measurement may be of limited value in the presence of any alkalosis, especially in a combined acid base disorder. . 52 A metabolite of Naproxen, O-desmethylnaproxen, has been shown to interfere with the Jendrassik-Corin method for measuring total bilirubin. Samples from patients who have taken Naproxen have shown spurious elevation in total bilirubin levels. 53 Because ethnic data is not always readily [...] 15-29 5 Kidney failure <15 (or dialysis) 54 CHOLESTEROL INTERPRETATION: Desirable: Less than 200 MG/DL Borderline-High Risk: 200-239 MG/DL High-Risk: 240 MG/DL and over 55 HDL INTERPRETATION: Undesirable: High Risk: Less than 40 MG/DL Desirable: Low Risk: Greater than 60 MG/DL 56 LDL INTERPRETATION: Low Risk Optimal Level: LDL Less than 100 MG/DL Near or Above Optimal: LDL 100-129 MG/DL Borderline High Risk: LDL 130-159 MG/DL High Risk: LDL 160-189 MG/DL Very High Risk: LDL Greater than 189 MG/DL 57 CHOLESTEROL INTERPRETATION: Desirable: Less than 200 MG/DL Borderline-High Risk: 200-239 MG/DL High-Risk: 240 MG/DL and over 58 HDL INTERPRETATION: Undesirable: High Risk: Less than 40 MG/DL Desirable: Low Risk: Greater than 60 MG/DL 59 LDL INTERPRETATION: Low Risk Optimal Level: LDL Less than 100 MG/DL Near or Above Optimal: LDL 100-129 MG/DL Borderline High Risk: LDL 130-159 MG/DL High Risk: LDL 160-189 MG/DL Very High Risk: LDL Greater than 189 MG/DL 60 Anion gap measurement may be of limited value in the presence of any alkalosis, especially in a combined acid base disorder. . 61 A metabolite of Naproxen, O-desmethylnaproxen, has been shown to interfere with the Jendrassik-Corin method for measuring total bilirubin. Samples from patients who have taken Naproxen have shown spurious elevation in total bilirubin levels. 62 Because ethnic data is not always readily [...] 15-29 5 Kidney failure <15 (or dialysis) 63 Lymphopenia % 64 Anion gap measurement may be of limited value in the presence of any alkalosis, especially in a combined acid base disorder. . 65 A metabolite of Naproxen, O-desmethylnaproxen, has been shown to interfere with the Jendrassik-Corin method for measuring total bilirubin. Samples from patients who have taken Naproxen have shown spurious elevation in total bilirubin levels. 66 Because ethnic data is not always readily [...] 15-29 5 Kidney failure <15 (or dialysis) 67 FINAL: NO GROWTH DAY 2 (<1,000 CFU/mL) 68 PLEASE NOTE NEW REFERENCE RANGE. 69 Lymphopenia % 70 Anion gap measurement may be of limited value in the presence of any alkalosis, especially in a combined acid base disorder. . 71 A metabolite of Naproxen, O-desmethylnaproxen, has been shown to interfere with the Jendrassik-Corin method for measuring total bilirubin. Samples from patients who have taken Naproxen have shown spurious elevation in total bilirubin levels. 72 Because ethnic data is not always readily [...] 15-29 5 Kidney failure <15 (or dialysis) 73 Anion gap measurement may be of limited value in the presence of any alkalosis, especially in a combined acid base disorder. . 74 Note change in reference range as of 04/24/08. The change was based on recommendations from the [place]. 75 Please note change in reference range effective 08 . 76 A metabolite of Naproxen, O-desmethylnaproxen, has been shown to interfere with the Jendrassik-Ettrick method for measuring total bilirubin. Samples from patients who have taken Naproxen have shown spurious elevation in total bilirubin levels. 77 Because ethnic data is not always readily [...] 15-29 5 Kidney failure <15 (or dialysis) 78 CHOLESTEROL INTERPRETATION: Desirable: Less than 200 MG/DL Borderline-High Risk: 200-239 MG/DL High-Risk: 240 MG/DL and over 79 HDL INTERPRETATION: Undesirable: High Risk: Less than 40 MG/DL Desirable: Low Risk: Greater than 60 MG/DL 80 LDL INTERPRETATION: Low Risk Optimal Level: LDL Less than 100 MG/DL Near or Above Optimal: LDL 100-129 MG/DL Borderline High Risk: LDL 130-159 MG/DL High Risk: LDL 160-189 MG/DL Very High Risk: LDL Greater than 189 MG/DL Procedures Date Code Description Status 2019 21823 EKG Tracing & Interpretation Completed 12/20/2018 89254 ECHO Transthoracic, Real-Time 2D With Doppler And Completed Color Flow 12/20/2018 39087 ECHO Transthoracic, Real-Time 2D With Doppler And Completed Color Flow 11/19/2018 50739 Inj/Aspir Major JT Or Bursa W/ US Completed 04/17/2018 [id number] Diabetic Retinal Eye Exam Completed 12/12/2017 66657 ECHO Transthoracic, Real-Time 2D With Doppler And Completed Color Flow 12/12/2017 20412 ECHO Transthoracic, Real-Time 2D With Doppler And Completed Color Flow 07/06/2017 76748 Destruction Of Benign Lesions Any Method 1-14 lesions Completed 05/30/2017 06856 Destruction Of Benign Lesions Any Method 1-14 lesions Completed 05/22/2017 [id number] Bone Mineral Density Test Completed 05/03/2017 [id number] Diabetic Retinal Eye Exam Completed 09/11/2015 23842 Stress Test Completed 09/11/2015 71605 Myocardial Perfusion Imaging Tomographic (Spect) Completed Multiple Studies 09/11/2015 63716 Myocardial Perfusion Imaging Tomographic (Spect) Completed Multiple Studies 08/24/2015 35654 EKG Tracing & Interpretation Completed 03/10/2015 [id number] Mammogram Completed 03/10/2015 [id number] Bone Mineral Density Test Completed 03/06/2014 87655 ECHO Transthoracic, Real-Time 2D With Doppler And Completed Color Flow 06/27/2013 [id number] Mammogram Completed 06/26/2012 [id number] Bone Mineral Density Test Completed 06/26/2012 [id number] Mammogram Completed 06/21/2011 [id number] Mammogram Completed 06/07/2011 27801 Treadmill Interp/Report Only Completed 06/07/2011 75993 Stress Test Supervsn W/Out I/R Completed 05/17/2011 49589 EKG Tracing & Interpretation Completed 05/17/2011 52800 Noninvasive Ear Or Pulse Oximetry For Oxygen Completed Saturation 05/06/2011 80666 ECHO Transthoracic, Real-Time 2D With Doppler And Completed Color Flow 05/11/2010 [id number] Mammogram Completed 05/07/2009 [id number] Bone Mineral Density Test Completed 09/22/2008 33783 EKG Tracing & Interpretation Completed 04/23/2008 79616 EKG Tracing & Interpretation Completed 04/23/2008 19710 EKG Tracing & Interpretation Completed 10/31/2000 [id number] Colonoscopy Completed Encounters Type Date Location Provider Dx Diagnosis Office Visit 12/05/2018 [facility] Swati Mckeon, M25.552 Pain in left hip 10:30a [facility] M16.12 Unilateral primary osteoarthritis, left hip Office Visit 11/12/2018 2:40p [facility] [place] I10 Essential ( primary) Medicine - Katie Maier hypertension [place] M25.552 Pain in left hip I35.0 Nonrheumatic aortic (valve) stenosis Office Visit 09/10/2018 1:30p [facility] Swati Mckeon, M25.552 Pain in left [facility] M.D. hip M16.12 Unilateral primary osteoarthritis, left hip Office Visit 08/23/2018 9:00a [facility] Stephanie Darrion, M25.552 Pain in left Medicine M.D. hip I10 Essential (primary) hypertension Office Visit 05/15/2018 3:00p [facility] [place] Z00.00 Encntr for Sukhwinder Maier M.D. general adult medical exam w/o abnormal findings M54.9 Dorsalgia, unspecified Office Visit 03/13/2018 10:20a [facility] Dermatology Dirk Du MD L72.0 Epidermal cyst L82.1 Other seborrheic keratosis Z08 Encntr for follow-up exam after trtmt for malignant neoplasm Z85.828 Personal history of other malignant neoplasm of skin Office Visit 01/09/2018 9:40a [facility] [place] M54.9 Dorsalgia, Sukhwinder Maier M.D. unspecified M25.552 Pain in left hip I10 Essential (primary) hypertension E78.5 Hyperlipidemia, unspecified Office Visit 11/09/2017 10:20a [facility] [place] I10 Essential ( primary) Sukhwinder Maier M.D. hypertension J06.9 Acute upper respiratory infection, unspecified I34.0 Nonrheumatic mitral (valve) insufficiency Office Visit 05/30/2017 10:30a [facility] Dirk Du, L82.1 Other seborrheic MD keratosis I78.8 Other diseases of capillaries R60.0 Localized edema B07.0 Plantar wart Z78.9 Other specified health status R20.8 Other disturbances of skin sensation S90.921A Unspecified superficial injury of right foot, init encntr Office Visit 02/23/2017 10:00a [facility] [place] I10 Essential ( primary) Sukhwinder Maier M.D. hypertension K62.5 Hemorrhage of anus and rectum R35.0 Frequency of micturition K64.4 Residual hemorrhoidal skin tags Office Visit 08/25/2016 10:00a [facility] [place] I10 Essential ( primary) Sukhwinder Maier M.D. hypertension D23.9 Other benign neoplasm of skin, unspecified G47.00 Insomnia, unspecified Office Visit 07/04/2016 10:40a [facility] Chris Pereyra NP J01.00 Acute maxillary Medicine sinusitis, unspecified Office Visit 03/16/2016 4:20p [facility] Starr Tian J01.00 Acute maxillary Medicine N.P. sinusitis, unspecified Office Visit 02/29/2016 4:20p [facility] Starr Tian, J01.00 Acute maxillary Medicine N.P. sinusitis, unspecified Office Visit 12/14/2015 2:00p [facility] Swati Mckeon, M16.11 Unilateral Services Of M.D. primary [facility] osteoarthritis, right hip M17.0 Bilateral primary osteoarthritis of knee M25.462 Effusion, left knee M25.562 Pain in left knee M25.461 Effusion, right knee M25.561 Pain in right knee M54.5 Low back pain Office Visit 12/07/2015 2:20p [facility] Stephanie Maier, M25.562 Pain in left Medicine M.D. knee M25.561 Pain in right knee M25.551 Pain in right hip Office Visit 09/01/2015 9:40a [facility] [place] M85.9 Disorder of bone Medicine Katie Maier density and structure, unspecified R06.02 Shortness of breath K21.9 Gastro-esophageal reflux disease without esophagitis E78.5 Hyperlipidemia, unspecified Office Visit 08/24/2015 10:20a [facility] Chris Pereyra R06.02 Shortness of Medicine [employer] breath R07.9 Chest pain, unspecified R14.2 Eructation Office Visit 01/29/2015 10:00a [facility] Chris Pereyra NP 784.91 Postnasal Drip Medicine 466.0 Bronchitis Acute 786.2 Cough Office 01/15/2015 [facility] Chris Pereyra NP 466.0 Bronchitis Acute Visit 9:00a Medicine Office 11/05/2014 [facility] Starr Tian, 788.43 Nocturia Visit 1:00p Medicine N.P. Office 07/22/2014 [facility] Stephanie 272.0 Hypercholesterolemia Pure Visit 10:00a Sukhwinder Maier M.D. 719.44 Pain Joint Hand 424.0 Mitral Valve Disorder Office Visit 02/19/2014 1:00p [facility] Stephanie V70.0 Examination Medicine Katie Maier General Medical Routine AT Health Care Facility 401.1 Hypertension Benign 272.0 Hypercholesterolemia Pure 437.8 Cerebrovascular Disease Other 424.1 Aortic Valve Disorder Office Visit 2014 11:40a [facility] Starr Tian, 724.5 Backache Unspec Medicine N.P. Office Visit 06/20/2013 1:00p [facility] [place] 401.1 Hypertension Sukhwinder Maier M.D. Benign 780.52 Insomnia Unspecified V04.81 Need For Prophylactic Vaccination & Inoculation/Influenza Office Visit 03/28/2013 4:20p [facility] Grecia Abbasi, 789.04 Pain Abdominal Medicine Katie, FACP Left Lower Quadrant Office Visit 12/20/2012 2:40p [facility] Stephanie V70.0 Examination Medicine Katie Maier General Medical Routine AT [facility] 272.0 Hypercholesterolemia Pure 401.1 Hypertension Benign V76.10 Screening For Malignant Neoplasm Breast Office Visit 08/02/2012 9:30a [facility] Nurse Visit A 401.1 Hypertension Medicine Benign Office Visit 06/19/2012 10:00a [facility] [place] 401.1 Hypertension Sukhwinder Maier M.D. Benign 782.0 Skin Sensation Disturbance 272.0 Hypercholesterolemia Pure Office Visit 12/20/2011 10:20a [facility] Stephanie V70.0 Examination Medicine Katie Maier General Medical Routine AT [facility] 272.0 Hypercholesterolemia Pure 724.2 Lumbago V76.10 Screening For Malignant Neoplasm Breast V82.81 Special Screening For Osteoporosis V12.50 History Personal Circulatory Diseases Unspec Office Visit 10/11/2011 11:20a [facility] [place] 729.5 Pain In Limb Medicine Katie Maier Office Visit 06/07/2011 10:30a [facility] Guy Oliva 786.50 Pain Chest Katie Munoz Unspec 785.2 Murmur Cardiac Undiagnosed 401.1 Hypertension Benign Office Visit 05/17/2011 DO Not Use [place] 786.05 Shortness Of 1:20p Franny Maier M.D. Breath v04.81 Need For Prophylactic Vaccination & Inoculation/Influenza Office Visit 04/28/2011 DO Not Use [place] 401.1 Hypertension 10:20a [facility] Cotton, M.D. Benign 272.0 Hypercholesterolemia Pure 785.2 Murmur Cardiac Undiagnosed V76.10 Screening For Malignant Neoplasm Breast Office Visit 03/24/2011 DO Not Use Starr Asmita, 680.8 Carbuncle & 11:00a [employer] [facility] N.P. Furuncle Spec Sites Other Office Visit [...] Use Starr Asmita, 466.0 Bronchitis Acute 2:45p [employer] N.P. Office Visit 04/27/2009 DO Not Use [place], V70.0 Examination 2:30p Franny Medel M.D. General Medical Routine AT Health Care Facility 729.5 Pain In Limb 401.1 Hypertension Benign 272.0 Hypercholesterolemia Pure 443.9 Peripheral Vascular Disease Unspec V04.81 Need For Prophylactic Vaccination & Inoculation/Influenza Office Visit 01/28/2009 DO Not Use Starr Asmita, 727.43 Ganglion Unspec 4:15p [employer] N.P. Office Visit 11/20/2008 DO Not Use [...] Benign Office Visit 04/10/2007 DO Not Use [place], 401.1 Hypertension 2:45p Franny Medel M.D. 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 Examination Plan of Treatment Future Appointment(s):01/31/2019 8:40 am - Stephanie Maier M.D. at [facility] Wokkkvxz77/29/2019 9:00 am - Swati Mckeon M.D. at [facility]02/12/2019 1:30 pm - Swati Mckeon M.D. at [facility]05/20/2019 3:00 pm - Stephanie Maier M.D. at [facility] Falkhlrb54/20/2019 - Deshawn Zhou DO FACCZ01.810 Encounter for preprocedural cardiovascular examinationFollow up:PRN
--- OUTSIDE RECORDS SUMMARY | 2019-02-12 09:55 | XMS REPORT | Continuity of Care Document ---
:1930 External Reference #:[id number] Author Name Claudia Rhodes Care Team Providers Name Role Phone Stephanie Maier MD Primary Care Physician Unavailable Payers Date Identification Numbers Payment Provider Subscriber Effective: 2012 Policy Number: [id number] Medicare Blue Ppo Tiarra Zakiya Jose Antonio Group Number: [id number] [address] [address] PayID: [id number] [place] [id number] Expires: 2012 Policy Number: [id number] Medicare Blue Ppo Tiarra R Jose Antonio Group Number: MEDICARE BLUE O [address] [address] Group Name: Plan Two [place] [id number] PayID: [id number] Problems Active Problems Provider Date [...] With Alone Drives without problems. Worked at [employer] in 2009. 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 son: Cody Sterling Tobacco Use Start: Unknown Never Smoked Cigarettes ETOH Use Denies alcohol use Tobacco Use Start: Unknown Patient has never smoked Recreational Drug Use Denies Drug Use Smoking Status Reviewed: 01/30/19 Patient has never smoked Exercise Type/Frequency Exercises [...] by mouth once Stephanie Maier, 04/29/2010 daily M.DCuauhtemoc [id number] Tablets Proctosol HC Use as directed 28.350gm [...] Tramadol HCL 1-2 tablets every 42tabs M54.9 [facility] 05/15/2018 - 50mg 6 hours as needed [...] 1 by mouth every 60tabs M16.11 Swati Mckeno, 12/14/2015 - 15mg day M.DCuauhtemoc 02/23/2017 Tablets Lorazepam 1-2 tabs by mouth 5tabs Stephanie 09/08/2015 - 0.5mg prior to Katie Maier 12/13/2015 Tablets procedure Omeprazole 1 by mouth as 30caps R14.2 Chris Pereyra NP 08/24/2015 - 20mg needed 03/08/[address] Molina 1 by mouth every 30tabs Starr iTan, 11/17/2014 - 10mg Tablets day N.P. 01/14/2015 [...] Tablets needed Zostavax 1 dose s/c 1units [facility] 03/28/2012 - Solution Katie Maier 06/18/2012 Rec Diltiazem HCL ER Take One Capsule 30caps 786.05 [facility] 02/13/2012 - By Mouth Once Katie Maier 06/19/2012 180mg Caps ER 24HR Daily Atorvastatin Calcium 1 po qd 90tabs [facility] 09/21/2011 - Katie Maier 01/01/2012 40mg Tablets Diltiazem CD 1 PO qd 30caps 786.05 [facility] 05/17/2011 - 180mg Katie Maier 02/13/2012 Caps ER 24HR Lisinopril 1 tablet once 30tabs 786.05 Stephanie - 10mg daily Katie Maier 05/17/2011 Tablets Cipro 1 tablet twice a 20tabs Unknown - 500mg Tablets day 10/28/2010 Crestor Take One Tablet 30tabs Stephanie - 40mg Tablets By Mouth AT Katie Maier 09/21/2011 Bedtime Aleve 1 po prn 60caps Unknown - 220mg Capsules 06/19/2012 Flonase Allergy 2 sprays each Unknown - Relief nostril once 08/24/2015 50mcg/Act daily Suspension Medications Administered in Office Medication SIG Qnty Indications Ordering Provider Date Depomedrol 40MG Swati Mckeon M.D. 11/19/2018 Injection Inj, Regadenoson, 0.1 MG Deshawn Zhou DO [facility] 09/11/2015 Injection Inj, Regadenoson, 0.1 MG RIGO Hooker 09/11/2015 Injection Technetium TC 99M Deshawn Zhou DO [facility] 09/11/2015 Tetrofosmin, Per Unit Dose Up To 40 Millicuries Injection Technetium TC 99M RIGO Hooker 09/11/2015 Tetrofosmin, Per Unit Dose Up To 40 Millicuries Injection Immunizations CPT Code Status Date Vaccine Lot # [id number] Given 06/05/2018 Influenza Virus Vaccine, Quadrivalent, Split, Preservative Free 04881 Given 05/11/2017 Influenza Virus Vaccine, Quadrivalent, Split, [id number] Preservative Free 61799 Given 06/17/2016 Influ Virus Vaccine, Quadrivalent, Split Virus, [id number] [address] Given 06/13/2015 Influenza Virus Vaccine, Quadrivalent, Split, [id number] Preservative Free 28176 Given 02/24/2015 Pneumococcal Conjugate Vaccine 13 Valent For [id number] Intramuscular Use 76302 Given 06/17/2014 Influenza Virus Vaccine, Quadrivalent, Split, [id number] Preservative Free 12226 Given 06/20/2013 Flu Vaccine Split Virus Preservative Free For [id number] Indiv 3Yr Older Q2038 Given 05/30/2012 Fluzone Vaccine 75277 Given 03/29/2012 Zoster (Zostavax) Q2035 Given 05/17/2011 Afluria Vaccine [id number] 65882 Given 07/09/2010 Influenza Virus 3Yrs & Over [id number] 27845 Given 04/27/2009 Influenza Virus 3Yrs & Over 91606 Given 06/25/2008 Influenza Virus 3Yrs & Over 76660 Given 06/25/2008 Influenza Virus 3Yrs & Over 91154 Given 06/28/2007 Influenza Virus 3Yrs & Over Vital Signs Date Vital Result Comment 01/30/2019 9:00am Height 63 inches 5'3" Weight [...] Result H/L Range Note Lipid Profile 01/15/2019 [facility] Triglycerides 132 mg/dL 1 (Trig/Chol/HDL) [address] [place] [address] [phone] Cholesterol 143 mg/dL 2 HDL Cholesterol 46.8 mg/dL 3 LDL Cholesterol 70 mg/dL 4 Comp Metabolic Panel 01/15/2019 [facility] Sodium 141 mmol/L N 135-145 [address] [place] [address] [phone] Potassium 4.1 mmol/L N 3.5-5.0 Chloride 105 [...] >60 Egfr 102.3 >60 5 Xray 11/19/2018 [facility] Inj/Aspir Major JT <pending> Or Bursa W/ US CBC Auto Diff 01/09/2018 [facility] White Blood Count 8.2 10^3/ uL N 3.5-10.8 [address] [place] [address] [phone] Red Blood Count 4.11 10^6/uL N 4.0-5.4 [...] Red Blood Cells % 0 Protein 01/09/2018 [facility] Total 6.7 g/dL 6.3 - Electrophoresis [address] Protein(Pep) 7.9 [place] [address] [phone] Albumin 3.2 g/dL Abnormal 3.4-4.7 Alpha-1 Globulin 0.2 g/dL 0.1-0.3 Alpha-2 Globulin 1.2 g/dL Abnormal 0.6-1.0 Beta Globulin 1.2 g/dL 0.7-1.2 Gamma Globulin 0.9 g/dL 0.6-1.6 Albumin/Globulin Ratio 0.93 Impression See Comment 6 Laboratory test 01/09/2018 [facility] Erythrocyte Sed 15 mm/Hr N 0-[address] [place] [address] [phone] Lipid Profile 01/09/2018 [facility] Triglycerides 169 mg/dL 7 (Trig/Chol/HDL) [address] [place] [address] [phone] Cholesterol 140 mg/dL 8 HDL Cholesterol 42.0 mg/dL 9 LDL Cholesterol 64 mg/dL 10 Comp Metabolic Panel 01/09/2018 [facility] Sodium 139 mmol/L N 139-[address] [place] [address] [phone] Potassium 4.5 mmol/L N 3.5-5.0 Chloride 105 [...] Egfr 112.9 >60 11 Lipid Profile 02/28/2017 [facility] Triglycerides 159 mg/dL N 12 (Trig/Chol/HDL) [address] [place] [address] [phone] Cholesterol 140 mg/dL N 13 HDL Cholesterol 39.3 mg/dL N 14 LDL Cholesterol 69 mg/dL N 15 Comp Metabolic Panel 02/28/2017 [facility] Sodium 138 mmol/L N 133-[address] [place] [address] [phone] Potassium 4.1 mmol/L N 3.5-5.0 Chloride 107 [...] N >60 16 CBC Auto Diff 02/28/2017 [facility] White Blood 7.1 10^3/uL N 3.5-10.[address] [place] [address] [phone] Red Blood Count 4.19 10^6/uL N 4.0-5.4 [...] % 0 N Urine Culture And 02/23/2017 [facility] Urine Culture SEE RESULT [address] [place] [address] [phone] Ua Routine 02/23/2017 [facility] Ua Specific 1.005 [place] Ua PH 8 Ua Color yellow Ua Appera clear Ua WBC trace Ua Protein neg Ua Glucose neg Ua Ketones neg Ua Bilirubin neg Ua Urobilinogen neg Ua Nitrite neg Ua Occult Blood neg Lipid Profile 08/18/2016 [facility] Triglycerides 137 mg/dL N 18 (Trig/Chol/HDL) [address] [place] [address] [phone] Cholesterol 147 mg/dL N 19 HDL Cholesterol 48.2 mg/dL N 20 LDL Cholesterol 71 mg/dL N 21 Comp Metabolic Panel 08/18/2016 [facility] Sodium 140 mmol/L N 133-145 [address] [place] [address] [phone] Potassium 4.2 mmol/L N 3.5-5.0 Chloride 105 [...] N >60 22 Comp Metabolic Panel 08/25/2015 [facility] Sodium 140 mmol/L N 133-145 [address] [place] [address] [phone] Potassium 4.1 mmol/L N 3.5-5.0 Chloride 105 [...] 99.0 N >60 23 Lipid Profile 08/25/2015 [facility] Triglycerides 149 mg/dL N 24 (Trig/Chol/HDL) [address] [place] [address] [phone] Cholesterol 157 mg/dL N 25 HDL Cholesterol 47.7 mg/dL N 26 LDL Cholesterol 80 mg/dL N 27 CKMB 08/25/2015 [facility] CKMB ng/mL 1.7 ng/mL N 0.6-6.[address] [place] [address] [phone] Laboratory test 08/25/2015 [facility] Troponin-I 0.00 ng/mL N <0.[address] (TnI) [place] [address] [phone] CBC Auto Diff 08/25/2015 [facility] White Blood 6.5 10^3/uL N 3.5-10.[address] [place] [address] [phone] Red Blood Count 4.28 10^6/uL N 4.0-5.4 [...] Cells % 0 N Laboratory test 08/25/2015 [facility] B-Type Natriuretic 74 pg/ mL N [address] [place] [address] [phone] Lipid Profile 07/30/2014 [facility] Triglycerides 202 mg/dL N 30, 31 (Trig/Chol/HDL) [address] [place] [address] [phone] Cholesterol 152 mg/dL N 32 HDL Cholesterol 44.5 mg/dL N 33 LDL Cholesterol 67 mg/dL N 34 Comp Metabolic Panel 07/30/2014 [facility] Sodium 139 mmol/L N 133-[address] [place] [address] [phone] Potassium 4.2 mmol/L N 3.5-5.0 35 Chloride [...] Egfr 109.7 N >60 36 Throat-Beta 01/14/2014 [facility] Throat Beta Strep (SEE 37 , [address] Culture NOTE) [place] [address] [phone] Surgical 12/23/2013 [facility] S RUN DATE: [address] 12/24/ [place] [address] <SEE [phone] NOTE> Surgical 12/17/2013 [facility] S RUN DATE: [address] 12/17/ [place] [address] <SEE [phone] NOTE> Lipid Profile 06/13/2013 [facility] Triglycerides 155 mg/dL 40-2 (Trig/Chol/HDL) [address] [place] [address] [phone] Cholesterol 149 mg/dL Less than 200 HDL Cholesterol 47 mg/dL 40-60 41 Cholesterol/HDL Ratio 3.2 Average 1-4.44 LDL Cholesterol 71.0 Less Than 100 42 Comp Metabolic Panel 06/13/2013 [facility] Sodium 140 mmol/L 133-[address] [place] [address] [phone] Potassium 4.1 mmol/L 3.5-5.0 Chloride 107 mmol/L [...] Egfr 122.8 >60 43 CBC W/Electronic 04/01/2013 [facility] White Blood 6.9 10^3/uL 4.8-10.[address] [place] [address] [phone] Red Blood Count 4.12 10^6/uL 4.0-5.4 Hemoglobin [...] Blood Cells % 0 CMP Panel 04/01/2013 [facility] Sodium 141 mmol/L 133-[address] [place] [address] [phone] Potassium 4.0 mmol/L 3.5-5.0 Chloride 107 mmol/L [...] Egfr 102.8 >60 44 Ua Routine 03/28/2013 [facility] Ua Specific [place] 1.005 Ua PH 5.0 Ua Color neg Ua Appera neg Ua WBC neg Ua Protein neg Ua Glucose neg Ua Ketones neg Ua Bilirubin neg Ua Urobilinogen neg Ua Nitrite neg Ua Occult Blood neg Laboratory test finding 06/26/2012 [facility] Alt 26 U/L 14- [address] [place] [address] [phone] Ast 25 U/L 12-42 46 TSH (Thyroid Stimulating Horm) 2.57 MIU/ML 0.34-5.60 47 Vitamin B12 336 pg/mL 180-914 48 Lipid Profile 06/26/2012 [facility] Triglycerides 95 mg/dL 40 -200 (Trig/Chol/HDL) [address] [place] [address] [phone] Cholesterol 157 mg/dL Less than 200 49 HDL Cholesterol 57 mg/dL 40-60 50 Cholesterol/HDL Ratio 2.8 AVERAGE 1-4.44 LDL Cholesterol 81.0 mg/dL Less Than 100 Comp Metabolic Panel 12/27/2011 [facility] Sodium 140 mmol/L 135-145 [address] [place] [address] [phone] Potassium 4.1 mmol/L 3.5-5.0 Chloride 105 mmol/L [...] 88.5 > 60 53 Lipid Profile 12/27/2011 [facility] Triglyceride 137 mg/dL 40 -200 (Trig/Chol/HDL) [address] [place] [address] [phone] Cholesterol 184 mg/dL Less Than 200 54 High Density Lipoprotein 50 mg/dL 40-60 55 Cholesterol/HDL Ratio 3.68 AVERAGE 1-4.44 Low Density Lipoprotein 107 mg/dL High Less Than 100 56 Lipid Profile 05/17/2011 [facility] Triglyceride 92 mg/dL 40- 200 (Trig/Chol/HDL) [address] [place] [address] [phone] Cholesterol 156 mg/dL Less Than 200 57 High Density Lipoprotein 46 mg/dL 40-60 58 Cholesterol/HDL Ratio 3.39 AVERAGE 1-4.44 Low Density Lipoprotein 92 mg/dL Less Than 100 59 Comp Metabolic Panel 05/17/2011 [facility] Sodium 142 mmol/L 135-[address] [place] [address] [phone] Potassium 4.6 mmol/L 3.5-5.0 Chloride 107 mmol/L [...] 103.3 > 60 62 Manual Differential 09/09/2010 [facility] Polysegmented 82 % 38-[address] [place] [address] [phone] Band Neutrophil 4 % 0-8 Lymphocyte 11 % Low 25-47 Monocyte 3 % 0-13 Absolute Neutrophil Count 9.9 RBC Morphology NORMAL CBC With 09/09/2010 [facility] White Blood 11.6 CUMM High 4.8- 10.8 Electronic Diff [address] [place] [address] [phone] Red Cell Count 3.99 CUMM Low 4.2-5.4 Hemoglobin 12.9 g/dL 12.0-16.0 Hematocrit 38 % 35-47 Mean Corpuscular Volume 95 um3 79-97 Mean Corpuscular Hemoglob 32 pg High 27-31 Mean Corpuscular HGB Cone 34 g/dL 32-36 Redcell Distribution WDTH 14 % 10.5-15 Platelet Count 259 CUMM 150-450 Mean Platelet Volume 8.4 um3 7.4-10.4 63 Comp Metabolic Panel 09/09/2010 [facility] Sodium 137 mmol/L 135-[address] [place] [address] [phone] Potassium 4.4 mmol/L 3.5-5.0 Chloride 101 mmol/L [...] > 60 66 Urine Culture & 09/01/2010 [facility] Urine Culture NG [address] [place] [address] [phone] Laboratory test 09/01/2010 [facility] Amylase 48 U/L 20-120 68 finding [address] [place] [address] [phone] Lipase 18 U/L Low 22-51 C Reactive Protein 2.3 mg/dL High Less Than 0.5 Laboratory test 09/01/2010 [facility] Stool For NEGATIVE Negative finding [address] [place] [address] [phone] CBC With 09/01/2010 [facility] White Blood 6.6 CUMM 4.8-10.[address] [place] [address] [phone] Red Cell Count 4.11 CUMM Low 4.2-5.4 [...] Basophils 0 0-0.2 69 Urinalysis W/Microscopic 09/01/2010 [facility] Ua Color YELLOW Yellow [address] [place] [address] [phone] Appearance-Urine CLEAR Clear Specific [place]-Ur 1.027 1.010-1.030 Esterase-Urine 1+ Abnormal Negative Nitrite NEGATIVE Negative Nmiuuukwcrwu-Md-JCV NEGATIVE Negative Protein-Urine TRACE Abnormal Negative PH-Urine 5.5 5-9 Blood-Urine TRACE Abnormal Negative Ketones-Urine NEGATIVE Negative Bilirubin-Ur NEGATIVE Negative Glucose-Urine NEGATIVE Negative WBC-Urine 5-10 Abnormal 0-5 RBC-Urine 0-2 0-2 Mucus Urine MODERATE None Epith Cells-Ur FEW None Comp Metabolic Panel 09/01/2010 [facility] Sodium 137 mmol/L 135-145 [address] [place] [address] [phone] Potassium 4.3 mmol/L 3.5-5.0 Chloride 106 mmol/L [...] > 60 72 Comp Metabolic Panel 05/05/2010 [facility] Sodium 141 mmol/L 135-145 [address] [place] [address] [phone] Potassium 4.1 mmol/L 3.5-5.0 Chloride 106 mmol/L [...] 103.5 > 60 77 Lipid Profile 05/05/2010 [facility] Triglyceride 182 mg/dL 40 -200 (Trig/Chol/HDL) [address] [place] [address] [phone] Cholesterol 156 mg/dL Less Than 200 78 [...] protein on serum electrophoresis. Test Performed by: [address] [address] 7 Desirable: <150 Borderline High: 150-199 High: [...] [address]: Stephanie Maier MD Acct: [id number] Unit: [id number] AGE: 87 Location: [facility] Re02/23/17 SEX: F Status: REG REF SPEC: [id number] TAMERA: 02/23/17-1214 [facility] DR: Stephanie Maier MD REQ: [id number] RECD: 02/23/17 STATUS: COMP _ SOURCE: URINE SPDESC: ORDERED: Urine Culture COMMENTS: [id number] Urine Source: Random Procedure Result Reported Site Urine Culture Final 02/24/17- 1605 ML No Growth (<1,000 CFU/mL) * ML - MAIN LAB ([facility]) . END OF REPORT * ML=Testing performed at Main Lab DEPARTMENT OF PATHOLOGY, [address] [place] [address] Reuben Contreras M.D. Director [facility] # [id number] 18 Desirable <150 Borderline high 150-199 High [...] 0.03 ng/mL Not supportive of diagnosis of [place] 0.03 - 0.50 ng/mL Indeterminate: suggest serial studies if clinically indicated. Greater than 0.5 ng/mL Consistent with diagnosis of FL 29 >100 to <200 pg/mL: likely compensated [...] by sarah saavedra 38 RUN DATE: 01/16/14 [facility] LAB LIVE PAGE 1 RUN TIME: [address] [place] [address] Specimen Inquiry Name: TIARRA STERLING Zakiya : [address]: Jann Rondon MD Acct: [id number] Unit: [id number] AGE: 83 Location: [facility] Re01/14/14 SEX: F Status: DEP ER SPEC: [id number] TAMERA: 01/14/14-1016 [facility] DR: Jann Rondon MD REQ: [id number] RECD: 01/14/14 STATUS: COMP JUANITOHR DR: Stephanie Maier MD _ SOURCE: THROAT SPDESC: ORDERED: Throat Beta Str COMMENTS: Comment: collected by sarah saavedra Procedure Result Verified Site Throat Beta Strep Culture Final 01/16/14- 0900 ML Negative For Group A Beta Streptococcus END OF REPORT * ML=Testing performed at Main Lab DEPARTMENT OF PATHOLOGY, [place], [place] [address] Reuben Contreras M.D. Director [facility] # [id number] 39 RUN DATE: 12/24/13 [facility] LAB LIVE PAGE 1 RUN TIME: [address] [place], [place] [address] Specimen Inquiry Name: TIARRA STERLING : [address]: Facundo Flaherty MD Acct: [id number] Unit: [id number] AGE: 83 Location: [place] Re12/23/13 SEX: F Status: REG PAC SPEC: [id number] TAMERA: 12/23/13- SUBM DR: Facundo Flaherty MD REQ: [id number] RECD: 12/23/13150 STATUS: JERAMY VARGAS DR: Stephanie Maier MD [...] performed at Main Lab DEPARTMENT OF PATHOLOGY, [facility] [employer] [place], [place] [address] Reuben Contreras M.D. Director [facility] Permit #[id number] 40 RUN DATE: 12/17/13 [facility] LAB LIVE PAGE 1 RUN TIME: 1603 [facility] [employer] [place], [place] [address] Specimen Inquiry Name: TIARRA STERLING : [address]: Facundo Flaherty MD Acct: [id number] Unit: [id number] AGE: 83 Location: [facility] Re12/17/13 SEX: F Status: REG REF SPEC: [id number] TAMERA: 12/17/13- [facility] DR: Facundo Flaherty MD REQ: [id number] RECD: 12/17/139627 STATUS: JEARMY VARGAS DR: Stepahnie Medina MD _ ORDERED: Consult w/slide FINAL DIAGNOSIS Skin, right nasolabial fold, shave biopsy: A. Basal cell carcinoma, nodular type. B. Basal cell carcinoma is broadly transected along the base of this shave biopsy. PRE-OPERATIVE DIAGNOSIS Basal cell carcinoma. GROSS DESCRIPTION Received is one glass slide labeled [id number], Tiarra Sterling, Laura . Accompanying this slide is a pathology report labeled Stephanie Sterling, [id number] [email or web address], [address] [place] [address], [address], [place] [address] Brooke Lucero on October 31, 2013. Signed (signature on file) Reuben Contreras MD 1518 END OF REPORT * ML=Testing performed at Main Lab DEPARTMENT OF PATHOLOGY, [address] [place] [address] Reuben Contreras M.D. Director [facility] Permit #[id number] HDL Interpretation: Undesirable: High Risk: Less [...] has been shown to interfere with the Jendrassik-Mariemont method for measuring total bilirubin. Samples from [...] has been shown to interfere with the Jendrassik-Mariemont method for measuring total bilirubin. Samples from [...] change was based on recommendations from the [place] [employer]. 75 Please note change in reference range effective 08 . 76 A metabolite of Naproxen, O-desmethylnaproxen, has been shown to interfere with the Jendrassik-Mariemont method for measuring total bilirubin. Samples from [...] MG/DL Procedures Date Code Description Status 2019 23466 EKG Tracing & Interpretation Completed 12/20/2018 22846 ECHO Transthoracic, Real-Time 2D With Doppler And Completed Color Flow 12/20/2018 73605 ECHO Transthoracic, Real-Time 2D With Doppler And Completed Color Flow 11/19/2018 17497 Inj/Aspir Major JT Or Bursa W/ US Completed 04/17/2018 [id number] Diabetic Retinal Eye Exam Completed 12/12/2017 23584 ECHO Transthoracic, Real-Time 2D With Doppler And Completed Color Flow 12/12/2017 84143 ECHO Transthoracic, Real-Time 2D With Doppler And Completed Color Flow 07/06/2017 64831 Destruction Of Benign Lesions Any Method 1-14 lesions Completed 05/30/2017 66539 Destruction Of Benign Lesions Any Method 1-14 lesions Completed 05/22/2017 640969941 Bone Mineral Density Test Completed 05/03/2017 216524502 Diabetic Retinal Eye Exam Completed 09/11/2015 49200 Stress Test Completed 09/11/2015 82541 Myocardial Perfusion Imaging Tomographic (Spect) Completed Multiple Studies 09/11/2015 17435 Myocardial Perfusion Imaging Tomographic (Spect) Completed Multiple Studies 08/24/2015 65125 EKG Tracing & Interpretation Completed 03/10/2015 [id number] Mammogram Completed 03/10/2015 579194868 Bone Mineral Density Test Completed 03/06/2014 21385 ECHO Transthoracic, Real-Time 2D With Doppler And Completed Color Flow 06/27/2013 59288733 Mammogram Completed 06/26/2012 046955339 Bone Mineral Density Test Completed 06/26/2012 30161027 Mammogram Completed 06/21/2011 28105830 Mammogram Completed 06/07/2011 59483 Treadmill Interp/Report Only Completed 06/07/2011 62103 Stress Test Supervsn W/Out I/R Completed 05/17/2011 58257 EKG Tracing & Interpretation Completed 05/17/2011 34590 Noninvasive Ear Or Pulse Oximetry For Oxygen Completed Saturation 05/06/2011 06802 ECHO Transthoracic, Real-Time 2D With Doppler And Completed Color Flow 05/11/2010 65519953 Mammogram Completed 05/07/2009 923476662 Bone Mineral Density Test Completed 09/22/2008 47625 EKG Tracing & Interpretation Completed 04/23/2008 96603 EKG Tracing & Interpretation Completed 04/23/2008 77819 EKG Tracing & Interpretation Completed 10/31/2000 [id number] Colonoscopy Completed Encounters Type Date Location Provider Dx Diagnosis Office Visit 2019 [facility] Deshawn Palomares Z01.810 Encounter for 3:00p Of Cinthia Zhou DO FACC preprocedural cardiovascular examination I35.0 Nonrheumatic aortic (valve) stenosis I10 Essential (primary) hypertension I63.9 Cerebral infarction, unspecified M16.12 Unilateral primary osteoarthritis, left hip Office Visit 12/05/2018 10:[facility] Swati Mckeon, M25.552 Pain in left Of C.M.A. M.D. hip M16.12 Unilateral primary osteoarthritis, left hip Office Visit 11/12/2018 2:40p [facility] Internal Stephanie I10 Essential ( primary) Medicine - Katie Maier hypertension [place] M25.552 Pain in left hip I35.0 Nonrheumatic aortic (valve) stenosis Office Visit 09/10/2018 1:30p [facility] Swati Mckeon, M25.552 Pain in left Of C.M.A. M.D. hip M16.12 Unilateral primary osteoarthritis, left hip Office Visit 08/23/2018 9:00a [facility] Internal Stephanie Cotton, M25.552 Pain in left Medicine M.D. hip I10 Essential (primary) hypertension Office Visit 05/15/2018 3:00p [facility] Internal Stephanie Z00.00 Encntr for Sukhwinder Maier M.D. general adult medical exam w/o abnormal findings M54.9 Dorsalgia, unspecified Office Visit 03/13/2018 10:20a [facility] Dermatology Dirk Du MD L72.0 Epidermal cyst L82.1 Other seborrheic keratosis Z08 Encntr for follow-up exam after trtmt for malignant neoplasm Z85.828 Personal history of other malignant neoplasm of skin Office Visit 01/09/2018 9:40a [facility] Internal Stephanie M54.9 Dorsalgia, Sukhwinder Maier M.D. unspecified M25.552 Pain in left hip I10 Essential (primary) hypertension E78.5 Hyperlipidemia, unspecified Office Visit 11/09/2017 10:20a [facility] [facility] Stephanie I10 Essential ( primary) Sukhwinder Maier M.D. hypertension J06.9 Acute upper respiratory infection, unspecified I34.0 Nonrheumatic mitral (valve) insufficiency Office Visit 05/30/2017 10:30a [facility] Dermatology Dirk Du L82.1 Other seborrheic MD keratosis I78.8 Other diseases of capillaries R60.0 Localized edema B07.0 Plantar wart Z78.9 Other specified health status R20.8 Other disturbances of skin sensation S90.921A Unspecified superficial injury of right foot, init encntr Office Visit 02/23/2017 10:00a [facility] Internal Stephanie I10 Essential ( primary) Medicine Katie Maier hypertension K62.5 Hemorrhage of anus and rectum R35.0 Frequency of micturition K64.4 Residual hemorrhoidal skin tags Office Visit 08/25/2016 10:00a [facility] Internal Stephanie I10 Essential ( primary) Medicine Katie Maier hypertension D23.9 Other benign neoplasm of skin, unspecified G47.00 Insomnia, unspecified Office Visit 07/04/2016 10:40a [facility] Internal Chris Pereyra NP J01.00 Acute maxillary Medicine sinusitis, unspecified Office Visit 03/16/2016 4:20p [facility] Internal Starr Tian J01.00 Acute maxillary Medicine N.P. sinusitis, unspecified Office Visit 02/29/2016 4:20p [facility] Internal Starr Tian J01.00 Acute maxillary Medicine N.P. sinusitis, unspecified Office Visit 12/14/2015 2:00p Orthopedic Swati Mckeon, M16.11 Unilateral [facility] osteoarthritis, right hip M17.0 Bilateral primary osteoarthritis of knee M25.462 Effusion, left knee M25.562 Pain in left knee M25.461 Effusion, right knee M25.561 Pain in right knee M54.5 Low back pain Office Visit 12/07/2015 2:20p [facility] Internal Stephanie Maier M25.562 Pain in left Medicine M.D. 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 Office 07/22/2014 [facility] Stephanie 272.0 Hypercholesterolemia Pure Visit 10:00a Sukhwinder Maier M.D. 719.44 Pain Joint Hand 424.0 Mitral Valve Disorder Office Visit 02/19/2014 1:00p [facility] Stephanie V70.0 Examination Medicine Katie Maier General Medical Routine AT Health Care Facility 401.1 Hypertension Benign 272.0 Hypercholesterolemia Pure 437.8 Cerebrovascular Disease Other 424.1 Aortic Valve Disorder Office Visit 2014 11:40a [facility] Internal Starr Tian, 724.5 Backache Unspec Medicine N.P. Office Visit 06/20/2013 1:00p [facility] Internal Stephanie 401.1 Hypertension Sukhwinder Maier M.D. Benign 780.52 Insomnia Unspecified V04.81 Need For Prophylactic Vaccination & Inoculation/Influenza Office Visit 03/28/2013 4:20p [facility] Internal Grecia Abbasi, 789.04 Pain Abdominal Medicine Katie, FACP Left Lower Quadrant Office Visit 12/20/2012 2:40p [facility] Internal Stephanie V70.0 Examination Sukhwinder Maier M.D. General Medical Routine AT Health Care Facility 272.0 Hypercholesterolemia Pure 401.1 Hypertension Benign V76.10 Screening For Malignant Neoplasm Breast Office Visit 08/02/2012 9:30a [facility] Internal Nurse Visit A 401.1 Hypertension Medicine Benign Office Visit 06/19/2012 10:00a [facility] Internal Stephanie 401.1 Hypertension Sukhwinder Maier M.D. Benign 782.0 Skin Sensation Disturbance 272.0 Hypercholesterolemia Pure Office Visit 12/20/2011 10:20a [facility] Stephanie V70.0 Examination Sukhwinder Maier M.D. General Medical Routine AT [facility] Care Facility 272.0 Hypercholesterolemia Pure 724.2 Lumbago V76.10 Screening For Malignant Neoplasm Breast V82.81 Special Screening For Osteoporosis V12.50 History Personal Circulatory Diseases Unspec Office Visit 10/11/2011 11:20a [facility] Stephanie 729.5 Pain In Limb Medicine Katie Maier Office Visit 06/07/2011 10:30a [facility] Guy Oliva 786.50 Pain Chest Katie [...] Use Starr Tian, 680.8 Carbuncle & 11:00a Securities Teller-Alexander N.P. Furuncle Spec Sites Other Office Visit [...] Other Office Visit 11/03/2009 DO Not Use Radmio, 465.9 URI Upper 2:45p Franny Medel M.D. Respiratory Infections Acute Unspec Sites 786.2 Cough 401.1 Hypertension Benign Office Visit 07/22/2009 DO Not Use Starr Tian, 466.0 Bronchitis Acute 2:45p Securities Teller-Alexander N.P. Office Visit 04/27/2009 DO Not Use Radomski, V70.0 Examination 2:30p Franny Medel M.D. General Medical Routine AT Health Care Facility 729.5 Pain In Limb 401.1 Hypertension Benign 272.0 Hypercholesterolemia Pure 443.9 Peripheral Vascular Disease Unspec V04.81 Need For Prophylactic Vaccination & Inoculation/Influenza Office Visit 01/28/2009 DO Not Use Starr Tian, 727.43 Ganglion Unspec 4:15p Cinthia-Elma N.PCuauhtemoc Office Visit 11/20/2008 DO Not Use Radomski, [...] 03/30/2006 DO Not Use Radomski, V72.31 Routine Television Anchor 2:15p Franny Medel M.D. Examination Plan of Treatment Future Appointment(s):02/25/2019 10:00 am - Swati Mckeon M.D. at [facility]01/31/2019 8:40 am - Stephanie Maier M.D. at [facility] Internal Szjzaqoh37/11/2019 1:30 pm - Swati Mckeon M.D. at [facility]05/20/2019 3:00 pm - Stephaine Maier M.D. at [facility] Internal [id number] - Swati Mckeon M.D.M25.552 Pain in left hipFollow up:Follow up: 2 weeks after ogmnnqaC19.12 Unilateral primary osteoarthritis, left hip
[2019-02-12] MEDS ORDERED: Clindamycin 900 MG IVPREMIX(* 900 MG/50 ML SDV IV ONE (10:17)
[2019-02-12] MEDS ORDERED: Acetaminophen TAB* 325 MG ONE (10:17)
[2019-02-12] MEDS ORDERED: Buffered Lidocaine 1% SYRIN* 1 ML/SYRINGE INTRADERM ONE (10:18)
[2019-02-12] MEDS ORDERED: Famotidine IV* 10 MG/ML 2 ML (20 mg) ONE (10:18)
[2019-02-12] MEDS ORDERED: Phenylephrine 10 MG/ML VIAL* 1 ML VIAL ONE (10:28)
[2019-02-12] MEDS ORDERED: Dexamethasone IV* 4 MG/ML 1 ML (4 MG) ONE (10:28)
[2019-02-12] MEDS ORDERED: Ondansetron INJ* 2 MG/ML VIAL ONE (10:28)
[2019-02-12] MEDS ORDERED: Lidocaine 2% PF * 5 ML VIAL ONE (10:28)
[2019-02-12] MEDS ORDERED: Propofol* 10 MG/ML 20 ML BTL ONE ×2 (10:28→13:36)
[2019-02-12] MEDS ORDERED: Midazolam* 1 MG/ML 5 ML VIAL (5 MG) ONE (10:28)
[2019-02-12] MEDS ORDERED: KETAMINE HCL* 50 MG/ML 10 ML VIAL ONE (10:28)
[2019-02-12] MEDS ORDERED: fentaNYL* 50 MCG/ML 2 ML VIAL (100 MCG VIAL) ONE ×2 (10:28→16:19)
[2019-02-12] MEDS ORDERED: Bupivacaine 0.5% SDV PF* 30ML VIAL ONE (12:14)
[2019-02-12] MEDS ORDERED: Ketorolac INJ* 30 MG/ML 1 ML VIAL ONE (14:37)
[2019-02-12] MEDS ORDERED: Ondansetron INJ* 2 MG/ML VIAL IV PRN ×2 (14:50→15:44)
[2019-02-12] MEDS ORDERED: Naloxone* 0.4 MG/ML 1 ML VIAL IV PRN (14:50)
[2019-02-12] MEDS ORDERED: Bupivacaine 0.5%* 50 ML VIAL ONE (15:02)
[2019-02-12] MEDS ORDERED: Morphine 4 MG/ML VIAL (1 ml) 4 MG/ML VIAL IV PRN (15:44)
[2019-02-12] MEDS ORDERED: Bisacodyl SUPP* 10 MG SUPP PR PRN (15:44)
[2019-02-12] MEDS ORDERED: Magnesium Hydroxide LIQ* 30 ML UDC PO PRN (15:44)
[2019-02-12] MEDS ORDERED: Cyclobenzaprine TAB* 10 MG PO PRN (15:44)
[2019-02-12] MEDS ORDERED: diPHENhydraMINE IV* 50 MG/ML 1 ml VIAL (BENADRYL) IV PRN (15:44)
[2019-02-12] MEDS ORDERED: Polyethyl Glycol/Propylene Gly OPHTH.SOLN BOTH EYES PRN (15:48)
[2019-02-12] MEDS ORDERED: Lactated Ringers 1000 ML Bag* 1,000 ML IV SCH (16:00)
[2019-02-12] MEDS: fentaNYL* 50 MCG/ML 2 ML VIAL (100 MCG VIAL) IV PRN ×4 (16:21→16:48)
--- NOTE | 2019-02-12 18:19 | OP ---
Operative Report - Blank - Operative Report Date of Operation: 02/12/19 Note: JARAD STERLING 1930 Date Of Surgery: 02/12/19 Swati Mckeon MD Paraffiner: Laila SIERRA did help throughout the procedure with preparation of the hip, wound retraction, manipulation of the hip, and wound closure. Anesthesiologist: Leeann Lira MD Anesthesia Type: Spinal Preoperative Diagnosis: Left severe degenerative osteoarthritis of the hip Postoperative Diagnosis: As above Procedure Performed: Left Total Hip Arthroplasty Complications: None Specimen: Femoral head and acetabular reamings sent to pathology. Hardware used: This is uncemented [place] total hip arthroplasty hardware for the femur a size 4 accolade II with 127 neck femoral component, for the acetabulum a size 50 D trident II tritanium cluster hole shell, a single 20 mm screw, for the insert a size 36 D polyethylene trident X 3 insert, and for the femoral head a size 36 - 2.5 ceramic biolox delta V40 femoral head. Brief history/Indication: JARAD STERLING was known in clinic and had a history of severe left hip pain. She failed conservative treatment with anti- inflammatories, pain pills, intra-articular injections and physical therapy. She elected to undergo left total hip arthroplasty due to continued pain and decreased quality of life. Radiographs showed severe end stage osteoarthritis of the hip with bone on bone contact. Informed consent was obtained from the patient. She understood the risks of surgery included but were not limited to: bleeding, infection, damage to nearby structures, intraoperative fracture, nerve palsy, failure of the hardware, early loosening, stiffness or loss of motion, dislocation, leg length discrepancy, anesthesia complications, stroke, heart attack, blood clot and . She wished to proceed. Intra-Operative findings: Intraoperatively the patient was noted to have severe loss of cartilage of the acetabulum and femoral head. Description of the Procedure: JARAD STERLING was identified in the preanesthesia unit. Her left hip was marked as the correct operative side. Informed consent was signed and placed in the chart. The patient was taken to the operating room and placed under anesthesia without complication. A garza catheter was placed. The patient was placed on the peg board with all bony prominences well padded. The left lower extremity was prepped and draped in the usual sterile fashion. Preoperative time -out was made to correctly identify the patient, side and site. Appropriate intraoperative antibiotics were given within one hour of incision. A standard posterior incision was made and carried sharply down to the lateral fascia. A new 10 blade was used to make an incision in the fascia in line with the skin incision. A charnley retractor was placed. The piriformis and conjoined tendons were identified and elevated off the posterolateral femur using electrocautery. These were tagged with number 5 Ethibond. Next electrocautery was used to make a posterolateral capsular flap and this was tagged with number 5 Ethibonds. The hip was carefully dislocated. Lesser trochanter to the center of the femoral head was measured at 55 mm. The oscillating saw was used to make the femoral neck cut. The femoral head was carefully removed. The femur was retracted anteriorly and the acetabular retractors were placed. Long-handled knife was used to sharply remove any remaining labrum from the acetabular rim. The acetabulum was sequentially reamed up to a size 49. A bleeding subchondral bone bed was obtained. A trial liner was placed and had excellent fit and stability. A 50D trident II tritanium with a 20 mm screw was placed and had excellent stability with appropriate anteversion and abduction angle. A size 36 D polyethylene liner was impacted into the acetabular shell. The liner was checked for stability and was stable. Next attention was turned to preparation of the femoral canal. A canal finder was used to enter the proximal femur. The femoral canal was sequentially broached up to a size 4 femoral broach trial. A trial neck and 36 - 2.5 trial femoral head was chosen. Lesser trochanter to center of the femoral head measurement was satisfactory. The hip was reduced and taken through a range of motion. The hip was stable in all positions with good soft tissue tension and appropriate leg lengths. The hip was dislocated and all trials were removed. The final implant chosen was a size 4 accolade II with 127 degree neck angle. This stem was impacted into the femoral canal without difficulty. The stem was stable with appropriate anteversion. The femoral head chosen was a 36 - 2.5 ceramic head. The head was impacted onto the femoral neck without difficulty. The final lesser trochanter to center of the femoral head measurement was satisfactory. The hip was reduced and taken through a range of motion. The hip was stable in all positions with good soft tissue tension and appropriate leg lengths. The hip was copiously irrigated with sterile saline. The previously tagged capsule and tendons were repaired to the posterolateral femur through two trochanteric drill holes. The lateral fascia layer was closed using number 1 vicryls. The rest of the incision was closed in a layered fashion using 0 and 2-0 vicryls. The skin was closed using 3-0 monocryl suture and Dermabond. Sterile adaptic, 4x4s and paper tape was used to cover the incision. The patients anesthesia was reversed without difficulty. She was taken to the PACU in stable condition. Intended weight-bearing will be as tolerated with posterior hip precautions.
[2019-02-12] MEDS ORDERED: Atorvastatin* 80 MG TAB PO SCH (18:30)
[2019-02-12] MEDS: Acetaminophen TAB* 325 MG PO PRN (18:31)
--- NOTE | 2019-02-12 19:05 | CONS ---
CC: Dr. Swati Mckeon; RIGO Soliz * CONSULTATION REPORT: DATE OF CONSULT: 02/12/19 ATTENDING PHYSICIAN: Dr. Lory Hernandez. REFERRING PHYSICIAN: Dr. Swati Mckeon. PRIMARY CARE PROVIDER: RIGO Soliz REASON FOR CONSULT: History of hypertension, stroke. HISTORY OF PRESENT ILLNESS: This is an 89-year-old female with past medical history of hypertension, stroke, macular degeneration who has been admitted to the hospital for end-stage osteoarthritis of the left hip. The patient underwent elective left total hip arthroplasty today. Subsequently, medical consultation was requested for management of the history of hypertension as well as stroke. The patient reports no issues currently. She reports that she has history of questionable stroke; however, she does not have any neurological deficit at baseline. She has been taking aspirin as well as Crestor for her history of possible stroke. PAST MEDICAL HISTORY: History of stroke, hypertension, macular degeneration, glaucoma. PAST SURGICAL HISTORY: Appendectomy, hysterectomy, cholecystectomy, and left rotator cuff repair. HOME MEDICATIONS: Include: 1. Cardizem 120 mg daily. 2. PreserVision AREDS 2 softgel 2 each in the morning. 3. Travatan 0.004% ophthalmic 1 drop in eyes at bedtime. 4. Systane 0.3-0.4% eye drop 1 to 2 drops both eyes as needed. 5. Rosuvastatin 40 mg at bedtime. 6. Women's 50+ multivitamin 1 tablet in the morning. 7. Methylcellulose therapy 500 mg in the morning. 8. Eylea 1 dose injection every 6 weeks. 9. Vitamin B12 one tablet every morning. 10. Vitamin D plus calcium (Caltrate) 600 plus D 1 tablet in the morning. 11. Aspirin 81 mg daily. 12. Acetaminophen 1 to 2 tablets as needed once a day. ALLERGIES: Include KEFLEX, LATEX, LISINOPRIL, METAXALONE, PENICILLIN, METAL, NYLON, TAPE, ELASTIC, SULFA. FAMILY HISTORY: Father: History of cancer. Mother: History of Alzheimer's disease. There are a few family members with history of coronary artery disease. SOCIAL HISTORY: She lives at home alone, she does not smoke or use any drugs. REVIEW OF SYSTEMS: The patient does not report any recent fevers or chills. No changes in her vision, no headaches, no changes in her hearing, no sore throat. No chest pain, no shortness of breath, no palpitations. She reports no abdominal pain, no nausea, no vomiting, no diarrhea. She does have chronic left hip pain and occasional back pain with no recent changes in baseline. Otherwise, a full review of systems was done and otherwise is negative. PHYSICAL EXAM: Blood pressure is 146/64, heart rate of 66, oxygen saturation of 94% on 2 L nasal cannula, temperature of 97.7 Fahrenheit. General: This is an elderly female, lying in the PACU stretcher, in no distress. HEENT: Pupils are equal, round, reactive to light. Atraumatic, normocephalic. Neck: There is no JVD. Lungs: There is no tachypnea, no use of accessory muscles. Lungs are clear with no wheezing, rales, or rhonchi. Heart: There is no chest wall tenderness. Regular rhythm with 3/6 systolic murmur best heard at the apex. Abdomen: Bowel sounds are normoactive in all 4 quadrants. Abdomen is soft, nontender, nondistended. Extremities: There is no lower extremity edema. There is tenderness at the left hip. Radial pulses 2+ bilaterally, dorsalis pedis 2+ bilaterally. Neurological: Alert and oriented x3. Her tongue is midline. There is no facial droop. Symmetric smile. There is no nystagmus. Speech is clear and coherent. She is able to move her upper extremities 5/5. Lower extremities: I did not ask her to move her left leg due to recent surgery. She is able to lift her right leg without issues. She is able to wiggle toes on both sides. Skin is warm to touch. No rashes or lesions. IMPRESSION AND PLAN: This is an 89-year-old female with left total hip arthroplasty secondary to left hip osteoarthritis. 1. History of hypertension. At this point, blood pressure is acceptable. Continue Cardizem and ordered starting tomorrow home dose of 120 mg daily. 2. History of stroke. Continue Crestor home dose. Would suggest start rosuvastatin 40 mg at bedtime. Currently, the patient's aspirin will be held secondary to surgery. Recommend to start the aspirin once bleeding risk is minimal per the discretion of the primary orthopedic surgeon. 3. History of macular degeneration and glaucoma. Continue the patient's home eye drops. 4. Left hip arthroplasty. Treatment and management per the primary team, Orthopedics. 5. DVT prophylaxis has also been ordered by Orthopedics 2.5 mg Eliquis, continue that. 6. Pain control. 7. Nutrition: Recommend starting regular diet, which has also been ordered for today at dinner. Thank you for your consultation. We will continue to follow the patient and give additional recommendations as warranted per the clinical course. [id number]/[facility] #: [id number] LEOPOLDO
[2019-02-12] MEDS ORDERED: ROSUVASTATIN 40 MG PO SCH (19:45)
[2019-02-12] MEDS: oxyCODONE TAB* 5 MG TAB PO PRN (20:35)
[2019-02-12] MEDS: Docusate CAP* 100 MG PO SCH (20:37)
[2019-02-12] MEDS: PTO:Travoprost Z 0.004% OPHTH (NF) 2.5 ML BTL BOTH EYES SCH (20:49)
[2019-02-12] MEDS: Clindamycin 600 MG IVPREMIX(* 600 MG/50 ML SDV IV SCH (20:51)
[2019-02-12] MEDS: Magnesium Hydroxide LIQ* 30 ML UDC PO SCH (20:53)
[2019-02-12] MEDS: AREDS2 PO SCH (21:58)
[2019-02-12] MEDS: ROSUVASTATIN 40 MG PO SCH (21:58)
[2019-02-13] MEDS: Clindamycin 600 MG IVPREMIX(* 600 MG/50 ML SDV IV SCH ×2 (06:04→13:16)
[2019-02-13 07:16] LABS: Hematocrit 33 % (35-47); Mean Platelet Volume 8.7 fL (7.4-10.4); Platelet Count 167 10^3/uL (150-450)
[2019-02-13 07:24] LABS: BUN/Creatinine Ratio 24.6 (8-20); Calcium 8.6 mg/dL (8.6-10.3); EGFR African American 111.7 (>60); EGFR Non-African American 92.4 (>60); Potassium 4.3 mmol/L (3.5-5.0)
[2019-02-13] MEDS: oxyCODONE/Acetamin 5/325 MG* TAB PO PRN ×2 (08:32→20:34)
[2019-02-13] MEDS: Docusate CAP* 100 MG PO SCH ×2 (08:32→19:48)
[2019-02-13] MEDS: Apixaban* 2.5 MG TAB PO SCH ×2 (08:32→19:47)
[2019-02-13] MEDS: Magnesium Hydroxide LIQ* 30 ML UDC PO SCH ×2 (08:32→19:50)
[2019-02-13] MEDS: Vitamin THERAPEUTIC TAB PO SCH (08:32)
[2019-02-13] MEDS: Diltiazem CD CAP* 120 MG PO SCH (08:32)
[2019-02-13] MEDS: AREDS2 PO SCH ×2 (08:32→19:49)
--- NOTE | 2019-02-13 09:41 | PN ---
Progress Note - Progress Note Date of Service: 02/13/19 SOAP: Subjective: []Pt seen at bedside. Feels well, pain is well controlled. Denies CP, SOB, dizziness, nausea Objective: []Gen: NAD, appears comfortable LLE: left hip dressing CDI, thigh soft, DF/PF intact, DP2+, sensation intact to light touch distally Calves supple and nontender without erythema, edema or palpable cords Assessment: []POD 1 sp left total hip replacement Plan: []WBAT PT/OT Posterior hip precautions eliquis 2.5 mg po BID x 30 days post op PMRU referral in Vital Signs Temp 97.6 F 02/13/19 07:27 Pulse 65 02/13/19 07:27 Resp 16 02/13/19 08:32 BP 115/51 02/13/19 07:27 Pulse Ox 94 02/13/19 07:27 Intake & Output 02/12/19 02/13/19 02/13/19 18:59 06:59 18:59 Intake Total 1950 1918 581 Output Total 1200 200 Balance 1950 718 381 Weight 142 lb 3.17 oz Intake: IV Fluids 1950 938 472 CLINDAMYCIN 900MG 50ML 50 LR 1900 938 472 IVPB 109 ABX - CLINDAMYCIN 109 Oral 980 Output: Urine 200 Weaver 1200 Other: # Bowel Movements 0 Laboratory Last Values Hgb 11.0 g/dL (12.0-16.0) L 02/13/19 06:38 Hct 33 % (35-47) L 02/13/19 06:38 Plt Count 167 10^3/uL (150-450) 02/13/19 06:38 MPV 8.7 fL (7.4-10.4) 02/13/19 06:38 Sodium 137 mmol/L (135-145) 02/13/19 06:38 Potassium 4.3 mmol/L (3.5-5.0) 02/13/19 06:38 Chloride 107 mmol/L (101-111) 02/13/19 06:38 Carbon Dioxide 24 mmol/L (22-32) 02/13/19 06:38 Anion Gap 6 mmol/L (2-11) 02/13/19 06:38 BUN 15 mg/dL (6-24) 02/13/19 06:38 Creatinine 0.61 mg/dL (0.51-0.95) 02/13/19 06:38 Est GFR ( Amer) 111.7 (>60) 02/13/19 06:38 Est GFR (Non-Af Amer) 92.4 (>60) 02/13/19 06:38 BUN/Creatinine Ratio 24.6 (8-20) H 02/13/19 06:38 Glucose 148 mg/dL (70-100) H 02/13/19 06:38 Calcium 8.6 mg/dL (8.6-10.3) 02/13/19 06:38
[2019-02-13] MEDS: Acetaminophen TAB* 325 MG PO PRN (14:22)
[2019-02-13] MEDS: ROSUVASTATIN 40 MG PO SCH (19:49)
[2019-02-13] MEDS: PTO:Travoprost Z 0.004% OPHTH (NF) 2.5 ML BTL BOTH EYES SCH (20:30)
--- NOTE | 2019-02-13 21:51 | PN ---
Progress Note - Progress Note Date of Service: 02/13/19 Note: Patient had indigestion, gas pain earlier, tried to get up to go to the bathroom and developed substernal chest pain. EKG unremarkable. Symptoms have subsided while at rest. Will give morphine, trend her troponin. Will also order maalox as I suspect this is indigestion.
[2019-02-13] MEDS: Al Hydrox/Mg Hydrox/Simet LIQ* 30 ML UDC PO PRN (22:01)
[2019-02-14] MEDS: Acetaminophen TAB* 325 MG PO PRN ×2 (01:30→09:06)
[2019-02-14 05:55] LABS: Hematocrit 29 % (35-47); Hemoglobin 9.8 g/dL (12.0-16.0); Mean Platelet Volume 8.3 fL (7.4-10.4); Platelet Count 160 10^3/uL (150-450)
[2019-02-14] MEDS: Magnesium Hydroxide LIQ* 30 ML UDC PO SCH ×2 (09:04→20:35)
[2019-02-14] MEDS: Docusate CAP* 100 MG PO SCH ×2 (09:05→20:35)
[2019-02-14] MEDS: Diltiazem CD CAP* 120 MG PO SCH (09:05)
[2019-02-14] MEDS: Apixaban* 2.5 MG TAB PO SCH ×2 (09:05→20:32)
[2019-02-14] MEDS: Vitamin THERAPEUTIC TAB PO SCH (09:06)
[2019-02-14] MEDS: AREDS2 PO SCH ×2 (09:07→20:33)
--- NOTE | 2019-02-14 11:57 | PN ---
Progress Note - Progress Note Date of Service: 02/14/19 SOAP: Subjective: []Pt seen at bedside. Her hip is sore but tolerable. Denies CP, SOB, dizziness, nausea. Desires DC to PMRU. Last night she had indigestion, medicine team conduct EKG, trops which were unremarkable. Objective: []Gen: NAD, appears comfortable LLE: left hip dressing changed, incision CDI, thigh soft, DF/PF intact, DP2+, sensation intact to light touch distally Calves supple and nontender without erythema, edema or palpable cords Assessment: []POD 2 sp left total hip replacement Plan: []WBAT PT/OT Posterior hip precautions eliquis 2.5 mg po BID x 30 days post op PMRU awaiting insurance auth Vital Signs Temp 98.6 F 02/14/19 11:10 Pulse 83 02/14/19 11:10 Resp 16 02/14/19 11:10 BP 118/46 02/14/19 11:10 Pulse Ox 97 02/14/19 11:10 Intake & Output 02/13/19 02/14/19 02/14/19 18:59 06:59 18:59 Intake Total 1431 540 230 Output Total 200 475 200 Balance 1231 65 30 Intake: IV Fluids 472 LR 472 IVPB 109 ABX - CLINDAMYCIN 109 Oral 850 540 230 Output: Urine 200 475 200 Other: Estimated Void Medium # Bowel Movements 0 # Voids 1 Laboratory Last Values Hgb 9.8 g/dL (12.0-16.0) L 02/14/19 05:29 Hct 29 % (35-47) L 02/14/19 05:29 Plt Count 160 10^3/uL (150-450) 02/14/19 05:29 MPV 8.3 fL (7.4-10.4) 02/14/19 05:29 Sodium 137 mmol/L (135-145) 02/13/19 06:38 Potassium 4.3 mmol/L (3.5-5.0) 02/13/19 06:38 Chloride 107 mmol/L (101-111) 02/13/19 06:38 Carbon Dioxide 24 mmol/L (22-32) 02/13/19 06:38 Anion Gap 6 mmol/L (2-11) 02/13/19 06:38 BUN 15 mg/dL (6-24) 02/13/19 06:38 Creatinine 0.61 mg/dL (0.51-0.95) 02/13/19 06:38 Est GFR ( Amer) 111.7 (>60) 02/13/19 06:38 Est GFR (Non-Af Amer) 92.4 (>60) 02/13/19 06:38 BUN/Creatinine Ratio 24.6 (8-20) H 02/13/19 06:38 Glucose 148 mg/dL (70-100) H 02/13/19 06:38 Calcium 8.6 mg/dL (8.6-10.3) 02/13/19 06:38 Troponin I 0.01 ng/mL (<0.04) 02/14/19 01:18
--- NOTE | 2019-02-14 16:32 | PN ---
Subjective Date of Service: 02/14/19 Interval History: Patient reports she previously was having constipation but had a bowel movement this morning and had incontinence of bowel. She denies abd pain, nausea/vomiting , chest pain, difficulty breathing, visual changes, and headaches. Objective Active Medications: Acetaminophen (Tylenol Tab*) 650 mg PO Q8H PRN PRN Reason: PAIN OR TEMPERATURE Last Admin: 02/14/19 09:06 Dose: 650 mg Al Hydrox/Mg Hydrox/Simethicone (Maalox Plus*) 30 ml PO Q4H PRN PRN Reason: INDIGESTION Last Admin: 02/13/19 22:01 Dose: 30 ml Apixaban (Eliquis*) 2.5 mg PO BID [facility] Last Admin: 02/14/19 09:05 Dose: 2.5 mg Aspirin (Aspirin Ec Tab*) 81 mg PO QAM [facility] Bisacodyl (Dulcolax Supp*) 10 mg CO DAILY PRN PRN Reason: constipation Cyclobenzaprine HCl (Flexeril Tab*) 5 mg PO TID PRN PRN Reason: SPASMS Last Admin: 02/14/19 15:12 Dose: 5 mg Diltiazem HCl (Cardizem Cd Cap*) 120 mg PO QAM [facility] Last Admin: 02/14/19 09:05 Dose: 120 mg Diphenhydramine HCl (Benadryl Iv*) 25 mg IV Q6H PRN PRN Reason: itching Last Admin: 02/13/19 03:11 Dose: 25 mg Docusate Sodium (Colace Cap*) 100 mg PO BID [facility] Last Admin: 02/14/19 09:05 Dose: 100 mg Lactated Ringer's (Lactated Ringers 1000 Ml Bag*) 1,000 mls @ 100 mls/hr IV PER RATE [facility] Last Admin: 02/13/19 03:11 Dose: 100 mls/hr Lactulose (Lactulose*) 30 ml PO Q6H PRN PRN Reason: constipation Last Admin: 02/14/19 12:59 Dose: 30 ml Magnesium Hydroxide (Milk Of Magnesia Liq*) 30 ml PO BID [facility] Last Admin: 02/14/19 09:04 Dose: 30 ml Magnesium Hydroxide (Milk Of Magnesia Liq*) 30 ml PO Q6H PRN PRN Reason: constipation Morphine Sulfate (Morphine 4 Mg/Ml Vial (1 Ml)) 2 mg IV Q2H PRN PRN Reason: PAIN Multivitamins (Theragran Tab*) 1 tab PO DAILY [facility] Last Admin: 02/14/19 09:06 Dose: 1 tab Multivitamins/Minerals (Preservision Areds 2) 1 cap PO BID [facility] Last Admin: 02/14/19 09:07 Dose: 1 cap Ondansetron HCl (Zofran Inj*) 4 mg IV Q6H PRN PRN Reason: nausea Oxycodone HCl (Roxycodone Tab*) 10 mg PO Q4H PRN PRN Reason: PAIN - SEVERE Last Admin: 02/12/19 20:35 Dose: 10 mg Oxycodone/Acetaminophen (Percocet 5/325 Tab*) 1 tab PO Q4H PRN PRN Reason: PAIN Last Admin: 02/13/19 20:34 Dose: 1 tab Oxycodone/Acetaminophen (Percocet 5/325 Tab*) 2 tab PO Q4H PRN PRN Reason: PAIN Last Admin: 02/13/19 08:32 Dose: 2 tab Rosuvastatin Calcium (Crestor (Nf)) 40 mg PO BEDTIME [facility] Last Admin: 02/13/19 19:49 Dose: 40 mg Travoprost (Travatan Z 0.004% Opth (Nf)) 1 drop BOTH EYES BEDTIME [facility]; Protocol Last Admin: 02/13/19 20:30 Dose: 1 drop Vital Signs - 8 hr 02/14/19 02/14/19 02/14/19 11:10 15:12 16:04 Temperature 98.6 F 98 F Pulse Rate 83 91 Respiratory 16 20 18 Rate Blood Pressure 118/46 139/54 (mmHg) O2 Sat by Pulse 97 98 Oximetry Oxygen Devices in Use Now: None Appearance: Thin, elderly white female who appears younger than stated age, laying in hospital bed, appearing in NAD Eyes: No Scleral Icterus, PERRLA Ears/Nose/Mouth/Throat: Mucous Membranes Moist Neck: NL Appearance and Movements; NL JVP Respiratory: Symmetrical Chest Expansion and Respiratory Effort, Clear to Auscultation Cardiovascular: RRR, - - Grade III systolic murmur Abdominal: NL Sounds; No Tenderness; No Distention Extremities: No Edema, No Clubbing, Cyanosis Skin: No Rash or Ulcers Neurological: Alert and Oriented x 3, NL Muscle Strength and Tone Result Diagrams: 02/14/19 05:29 02/13/19 06:38 Assess/Plan/Problems-Billing Assessment: 89 yo white female with PMHx hypertension, CVA, macular degeneration, and glaucoma presents for elective left total hip arthroplasty with Dr. Mckeon. Hospital medicine was consulted for co-management of chronic medical conditions. - Patient Problems (1) History of CVA (cerebrovascular accident) Code(s): Z86.73 - PRSNL HX OF TIA (TIA), AND CEREB INFRC W/O RESID DEFICITS SNOMED Code(s): 585475477 Comment: -restarting patient's home ASA 81 mg, approved by ortho surg team -continue statin (2) Hypertension Code(s): I10 - ESSENTIAL (PRIMARY) HYPERTENSION SNOMED Code(s): 46849005 Comment: -patient has been normotensive -continue home cardizem (3) Macular degeneration Code(s): H35.30 - UNSPECIFIED MACULAR DEGENERATION SNOMED Code(s): 739366411 Comment: -continue home eye drops (4) S/P total hip arthroplasty Code(s): Z96.649 - PRESENCE OF UNSPECIFIED ARTIFICIAL HIP JOINT SNOMED Code(s) : 503967989545 Comment: -elective left total hip for osteoarthritis -management per orthopedic surgery team -continue pain control per ortho surg -incontinence of bowel likely due to multiple bowel regimen medications, will continue to monitor (5) DVT prophylaxis Code(s): Z29.9 - ENCOUNTER FOR PROPHYLACTIC MEASURES, UNSPECIFIED SNOMED Code( s): 571069360 Comment: -Eliquis per ortho surg (6) Full code status Current Visit: Yes Status: Acute Code(s): Z78.9 - OTHER SPECIFIED HEALTH STATUS SNOMED Code(s): 173767798 Status and Disposition: disposition per orthopedic surgery
[2019-02-14] MEDS: oxyCODONE/Acetamin 5/325 MG* TAB PO PRN ×2 (17:46→23:27)
[2019-02-14] MEDS: Aspirin EC TAB* 81 MG TAB.EC PO SCH (17:46)
[2019-02-14] MEDS: oxyCODONE TAB* 5 MG TAB PO PRN (20:32)
[2019-02-14] MEDS: PTO:Travoprost Z 0.004% OPHTH (NF) 2.5 ML BTL BOTH EYES SCH (20:33)
[2019-02-14] MEDS: ROSUVASTATIN 40 MG PO SCH (20:33)
[2019-02-14] MEDS: Al Hydrox/Mg Hydrox/Simet LIQ* 30 ML UDC PO PRN (23:34)
[2019-02-15 06:14] LABS: Hematocrit 31 % (35-47); Hemoglobin 10.4 g/dL (12.0-16.0); Mean Platelet Volume 8.6 fL (7.4-10.4); Platelet Count 187 10^3/uL (150-450)
[2019-02-15] MEDS: oxyCODONE TAB* 5 MG TAB PO PRN (06:38)
[2019-02-15] MEDS: Aspirin EC TAB* 81 MG TAB.EC PO SCH (08:41)
[2019-02-15] MEDS: Vitamin THERAPEUTIC TAB PO SCH (08:42)
[2019-02-15] MEDS: Apixaban* 2.5 MG TAB PO SCH ×2 (08:42→21:41)
[2019-02-15] MEDS: Docusate CAP* 100 MG PO SCH ×2 (08:43→21:41)
[2019-02-15] MEDS: AREDS2 PO SCH ×2 (08:43→21:42)
[2019-02-15] MEDS: Magnesium Hydroxide LIQ* 30 ML UDC PO SCH ×2 (08:43→21:45)
[2019-02-15] MEDS: Diltiazem CD CAP* 120 MG PO SCH (08:43)
--- NOTE | 2019-02-15 10:40 | PN ---
Progress Note - Progress Note Date of Service: 02/15/19 SOAP: Subjective: []Patient seen OOB in chair. She is waiting to hear about [facility] approval. She stated to me this morning that she did not feel she would be able to go home. She denies SOB, CP, palpitations Objective: [] Vital Signs Temp 98.9 F 02/15/19 07:43 Pulse 99 02/15/19 07:43 Resp 16 02/15/19 08:55 BP 114/44 02/15/19 07:43 Pulse Ox 93 02/15/19 07:43 Intake & Output 02/14/19 02/15/19 02/15/19 18:59 06:59 18:59 Intake Total 460 475 230 Output Total 200 200 150 Balance 260 275 80 Intake: Oral 460 475 230 Output: Urine 200 200 150 Other: Date of Last Bowel 02/15/19 Movement # Bowel Movements 1 1 Estimated Stool Amount Small Small Laboratory Results - last 24 hr 02/15/19 05:32 Hgb 10.4 L Hct 31 L Plt Count 187 MPV 8.6 Let hip dressings have been changed, would benign calf NT and soft + DF left ankle sensation and circulation intact distally Assessment: []s/p LTH POD #3 Plan: []Eliquis for DVT prophylaxis WBAT LLE Posterior hip precautions She may need to consider SNF rehab if she is not accepted at [facility]
--- NOTE | 2019-02-15 14:59 | PN ---
Subjective Date of Service: 02/15/19 Interval History: Patient resting and easily awakened at time of evaluation. Feeling well but reports feeling occasionally bloated with intermittent mild abd pain. Denies nausea/vomiting/diarrhea, fever/chills, chest pain, headaches, difficulty breathing. Objective Active Medications: Acetaminophen (Tylenol Tab*) 650 mg PO Q8H PRN PRN Reason: PAIN OR TEMPERATURE Last Admin: 02/14/19 09:06 Dose: 650 mg Al Hydrox/Mg Hydrox/Simethicone (Maalox Plus*) 30 ml PO Q4H PRN PRN Reason: INDIGESTION Last Admin: 02/14/19 23:34 Dose: 30 ml Apixaban (Eliquis*) 2.5 mg PO BID [facility] Last Admin: 02/15/19 08:42 Dose: 2.5 mg Aspirin (Aspirin Ec Tab*) 81 mg PO QAM [facility] Last Admin: 02/15/19 08:41 Dose: 81 mg Bisacodyl (Dulcolax Supp*) 10 mg OR DAILY PRN PRN Reason: constipation Cyclobenzaprine HCl (Flexeril Tab*) 5 mg PO TID PRN PRN Reason: SPASMS Last Admin: 02/14/19 15:12 Dose: 5 mg Diltiazem HCl (Cardizem Cd Cap*) [facility] [place] Last Admin: 02/15/19 08:43 Dose: 120 mg Diphenhydramine HCl (Benadryl Iv*) 25 mg IV Q6H PRN PRN Reason: itching Last Admin: 02/13/19 03:11 Dose: 25 mg Docusate Sodium (Colace Cap*) 100 mg PO BID [facility] Last Admin: 02/15/19 08:43 Dose: Not Given Lactated Ringer's (Lactated Ringers 1000 Ml Bag*) 1,000 mls @ 100 mls/hr IV PER RATE [facility] Last Admin: 02/13/19 03:11 Dose: 100 mls/hr Lactulose (Lactulose*) 30 ml PO Q6H PRN PRN Reason: constipation Last Admin: 02/14/19 12:59 Dose: 30 ml Magnesium Hydroxide (Milk Of Magnesia Liq*) 30 ml PO BID [facility] Last Admin: 02/15/19 08:43 Dose: Not Given Magnesium Hydroxide (Milk Of Magnesia Liq*) 30 ml PO Q6H PRN PRN Reason: constipation Morphine Sulfate (Morphine 4 Mg/Ml Vial (1 Ml)) 2 mg IV Q2H PRN PRN Reason: PAIN Multivitamins (Theragran Tab*) 1 tab PO DAILY [facility] Last Admin: 02/15/19 08:42 Dose: 1 tab Multivitamins/Minerals (Preservision Areds 2) 1 cap PO BID [facility] Last Admin: 02/15/19 08:43 Dose: 1 cap Ondansetron HCl (Zofran Inj*) 4 mg IV Q6H PRN PRN Reason: nausea Oxycodone HCl (Roxycodone Tab*) 10 mg PO Q4H PRN PRN Reason: PAIN - SEVERE Last Admin: 02/15/19 06:38 Dose: 10 mg Oxycodone/Acetaminophen (Percocet 5/325 Tab*) 1 tab PO Q4H PRN PRN Reason: PAIN Last Admin: 02/14/19 17:46 Dose: 1 tab Oxycodone/Acetaminophen (Percocet 5/325 Tab*) 2 tab PO Q4H PRN PRN Reason: PAIN Last Admin: 02/14/19 23:27 Dose: 2 tab Rosuvastatin Calcium (Crestor (Nf)) 40 mg PO BEDTIME [facility] Last Admin: 02/14/19 20:33 Dose: 40 mg Travoprost (Travatan Z 0.004% Opth (Nf)) 1 drop BOTH EYES BEDTIME [facility]; Protocol Last Admin: 02/14/19 20:33 Dose: 1 drop Vital Signs - 8 hr 02/15/19 02/15/19 02/15/19 07:43 08:50 08:55 Temperature 98.9 F Pulse Rate 99 Respiratory 16 16 16 Rate Blood Pressure 114/44 (mmHg) O2 Sat by Pulse 93 Oximetry 02/15/19 11:14 Temperature 99.1 F Pulse Rate 96 Respiratory 16 Rate Blood Pressure 113/45 (mmHg) O2 Sat by Pulse 93 Oximetry Oxygen Devices in Use Now: None Appearance: Elderly white female who appears younger than stated age, reclined in hospital chair, appearing in NAD Eyes: No Scleral Icterus, PERRLA Ears/Nose/Mouth/Throat: Mucous Membranes Moist Neck: NL Appearance and Movements; NL JVP Respiratory: Symmetrical Chest Expansion and Respiratory Effort, Clear to Auscultation Cardiovascular: RRR, - - Grade II systolic murmur Abdominal: NL Sounds; No Tenderness; No Distention Extremities: No Edema, No Clubbing, Cyanosis Skin: No Rash or Ulcers Neurological: Alert and Oriented x 3, NL Muscle Strength and Tone Result Diagrams: 02/15/19 05:32 02/13/19 06:38 Assess/Plan/Problems-Billing Assessment: 89 yo white female with PMHx hypertension, CVA, macular degeneration, and glaucoma presents for elective left total hip arthroplasty with Dr. Mckeon. Hospital medicine was consulted for co-management of chronic medical conditions. - Patient Problems (1) History of CVA (cerebrovascular accident) Code(s): Z86.73 - PRSNL HX OF TIA (TIA), AND CEREB INFRC W/O RESID DEFICITS SNOMED Code(s): 479189211 Comment: -continue aspirin and statin (2) Hypertension Code(s): I10 - ESSENTIAL (PRIMARY) HYPERTENSION SNOMED Code(s): 82398067 Comment: -patient has been normotensive -continue home cardizem (3) Macular degeneration Code(s): H35.30 - UNSPECIFIED MACULAR DEGENERATION SNOMED Code(s): 496936230 Comment: -continue home eye drops (4) S/P total hip arthroplasty Code(s): Z96.649 - PRESENCE OF UNSPECIFIED ARTIFICIAL HIP JOINT SNOMED Code(s) : 154784939165 Comment: -elective left total hip for osteoarthritis -management per orthopedic surgery team -continue pain control and bowel regimen per ortho surg (5) DVT prophylaxis Code(s): Z29.9 - ENCOUNTER FOR PROPHYLACTIC MEASURES, UNSPECIFIED SNOMED Code( s): 387522558 Comment: -Eliquis per ortho surg (6) Full code status Current Visit: Yes Status: Acute Code(s): Z78.9 - OTHER SPECIFIED HEALTH STATUS SNOMED Code(s): 561418076 Status and Disposition: disposition per orthopedic surgery
[2019-02-15] MEDS: oxyCODONE/Acetamin 5/325 MG* TAB PO PRN (18:33)
[2019-02-15] MEDS: PTO:Travoprost Z 0.004% OPHTH (NF) 2.5 ML BTL BOTH EYES SCH (21:41)
[2019-02-15] MEDS: ROSUVASTATIN 40 MG PO SCH (21:42)
[2019-02-16] MEDS: oxyCODONE/Acetamin 5/325 MG* TAB PO PRN ×4 (02:15→18:55)
[2019-02-16 05:25] LABS: Hematocrit 29 % (35-47); Hemoglobin 9.7 g/dL (12.0-16.0); Platelet Count 190 10^3/uL (150-450)
[2019-02-16] MEDS: Apixaban* 2.5 MG TAB PO SCH ×2 (08:39→20:09)
[2019-02-16] MEDS: Docusate CAP* 100 MG PO SCH ×2 (08:39→20:09)
[2019-02-16] MEDS: Aspirin EC TAB* 81 MG TAB.EC PO SCH (08:39)
[2019-02-16] MEDS: Vitamin THERAPEUTIC TAB PO SCH (08:39)
[2019-02-16] MEDS: AREDS2 PO SCH ×2 (08:39→20:09)
[2019-02-16] MEDS: Diltiazem CD CAP* 120 MG PO SCH (08:40)
[2019-02-16] MEDS: Magnesium Hydroxide LIQ* 30 ML UDC PO SCH ×2 (08:40→20:12)
--- NOTE | 2019-02-16 10:27 | PN ---
Progress Note - Progress Note Date of Service: 02/16/19 SOAP: Subjective: Pt is doing well. Doing well with PT. Denies F/C, CP/SOB and calf pain. Objective: PE- 89 y/o WDWN F NAD, A&Ox3 LLE- dressing changed, inc c/d/i, calf soft NT, +DF/PF ankle, NVI Vital Signs Temp Pulse Resp BP Pulse Ox 98.7 F 93 18 135/57 94 02/16/19 07:51 02/16/19 07:51 02/16/19 08:00 02/16/19 07:51 02/16/19 08:00 Laboratory Results - last 24 hr 02/16/19 05:19 Hgb 9.7 L Hct 29 L Plt Count 190 MPV 8.0 Assessment: []s/p LTH POD #4 Plan: []Eliquis for DVT prophylaxis WBAT LLE Cont PT/OT Posterior hip precautions Awaiting SNF rehab placement likely Monday
--- NOTE | 2019-02-16 11:29 | PN ---
Subjective Date of Service: 02/16/19 Interval History: Patient is feeling well today. Pain 5/10 in leg. Patient denies F/C, N/V, CP, SOB, dysuria, or other pain. Patient has been feeling constipated despite several small BMs over the past 2 days. Patient is anxious for discharge to rehab. Family History: Unchanged from Admission Social History: Unchanged from Admission Past Medical History: Unchanged from Admission Objective Active Medications: Acetaminophen (Tylenol Tab*) 650 mg PO Q8H PRN PRN Reason: PAIN OR TEMPERATURE Last Admin: 02/14/19 09:06 Dose: 650 mg Al Hydrox/Mg Hydrox/Simethicone (Maalox Plus*) 30 ml PO Q4H PRN PRN Reason: INDIGESTION Last Admin: 02/14/19 23:34 Dose: 30 ml Apixaban (Eliquis*) 2.5 mg PO BID [facility] Last Admin: 02/16/19 08:39 Dose: 2.5 mg Aspirin (Aspirin Ec Tab*) 81 mg PO QAM [facility] Last Admin: 02/16/19 08:39 Dose: 81 mg Bisacodyl (Dulcolax Supp*) 10 mg ID DAILY PRN PRN Reason: constipation Cyclobenzaprine HCl (Flexeril Tab*) 5 mg PO TID PRN PRN Reason: SPASMS Last Admin: 02/14/19 15:12 Dose: 5 mg Diltiazem HCl (Cardizem Cd Cap*) 120 mg PO QAM [facility] Last Admin: 02/16/19 08:40 Dose: 120 mg Diphenhydramine HCl (Benadryl Iv*) 25 mg IV Q6H PRN PRN Reason: itching Last Admin: 02/13/19 03:11 Dose: 25 mg Docusate Sodium (Colace Cap*) 100 mg PO BID [facility] Last Admin: 02/16/19 08:39 Dose: 100 mg Lactated Ringer's (Lactated Ringers 1000 Ml Bag*) 1,000 mls @ 100 mls/hr IV PER RATE [facility] Last Admin: 02/13/19 03:11 Dose: 100 mls/hr Lactulose (Lactulose*) 30 ml PO Q6H PRN PRN Reason: constipation Last Admin: 02/14/19 12:59 Dose: 30 ml Magnesium Hydroxide (Milk Of Magnesia Liq*) 30 ml PO BID [facility] Last Admin: 02/16/19 08:40 Dose: Not Given Magnesium Hydroxide (Milk Of Magnesia Liq*) 30 ml PO Q6H PRN PRN Reason: constipation Morphine Sulfate (Morphine 4 Mg/Ml Vial (1 Ml)) 2 mg IV Q2H PRN PRN Reason: PAIN Multivitamins (Theragran Tab*) 1 tab PO DAILY [facility] Last Admin: 02/16/19 08:39 Dose: 1 tab Multivitamins/Minerals (Preservision Areds 2) 1 cap PO BID [facility] Last Admin: 02/16/19 08:39 Dose: 1 cap Ondansetron HCl (Zofran Inj*) 4 mg IV Q6H PRN PRN Reason: nausea Oxycodone HCl (Roxycodone Tab*) 10 mg PO Q4H PRN PRN Reason: PAIN - SEVERE Last Admin: 02/15/19 06:38 Dose: 10 mg Oxycodone/Acetaminophen (Percocet 5/325 Tab*) 1 tab PO Q4H PRN PRN Reason: PAIN Last Admin: 02/16/19 07:52 Dose: 1 tab Oxycodone/Acetaminophen (Percocet 5/325 Tab*) 2 tab PO Q4H PRN PRN Reason: PAIN Last Admin: 02/15/19 18:33 Dose: 2 tab Rosuvastatin Calcium (Crestor (Nf)) 40 mg PO BEDTIME [facility] Last Admin: 02/15/19 21:42 Dose: 40 mg Travoprost (Travatan Z 0.004% Opth (Nf)) 1 drop BOTH EYES BEDTIME [facility]; Protocol Last Admin: 02/15/19 21:41 Dose: 1 drop Vital Signs - 8 hr 02/16/19 02/16/19 02/16/19 03:30 04:15 07:51 Temperature 98.4 F 98.7 F Pulse Rate 96 93 Respiratory 16 18 16 Rate Blood Pressure 112/49 135/57 (mmHg) O2 Sat by Pulse 96 94 Oximetry 02/16/19 02/16/19 07:52 08:00 Temperature Pulse Rate Respiratory 18 18 Rate Blood Pressure (mmHg) O2 Sat by Pulse 94 Oximetry Oxygen Devices in Use Now: None Appearance: Patient is an 89yo female who appears stated age and is sitting in the bed in NAD. Eyes: No Scleral Icterus, PERRLA Ears/Nose/Mouth/Throat: NL Teeth, Lips, Gums, Clear Oropharnyx, Mucous Membranes Moist Neck: NL Appearance and Movements; NL JVP, Trachea Midline Respiratory: Symmetrical Chest Expansion and Respiratory Effort, Clear to Auscultation Cardiovascular: NL Sounds; No Murmurs; No JVD, RRR, - - 1+ LLE edema. Abdominal: NL Sounds; No Tenderness; No Distention, No Hepatosplenomegaly Lymphatic: No Cervical Adenopathy Skin: No Nodules or Sclerosis, - - Left hip incision covered in bulky dressing. Neurological: Alert and Oriented x 3, NL Sensation, NL Muscle Strength and Tone , - - CN II-XII intact. Result Diagrams: 02/16/19 05:19 02/13/19 06:38 Assess/Plan/Problems-Billing Assessment: 89 yo white female with PMHx hypertension, CVA, macular degeneration, and glaucoma presents for elective left total hip arthroplasty with Dr. Mckeon. [facility] medicine was consulted for co-management of chronic medical conditions. - Patient Problems (1) S/P total hip arthroplasty Current Visit: Yes Status: Acute Code(s): Z96.649 - PRESENCE OF UNSPECIFIED ARTIFICIAL HIP JOINT SNOMED Code(s): 848274463072 Comment: - Elective left total hip for osteoarthritis - Management per orthopedic surgery team - Continue pain control and bowel regimen per ortho surg - PT/OT (2) History of CVA (cerebrovascular accident) Current Visit: Yes Status: Acute Code(s): Z86.73 - PRSNL HX OF TIA (TIA), AND CEREB INFRC W/O RESID DEFICITS SNOMED Code(s): 240202979 Comment: - Continue aspirin and statin - No New deficits (3) Hypertension Current Visit: Yes Status: Acute Code(s): I10 - ESSENTIAL (PRIMARY) HYPERTENSION SNOMED Code(s): 16801197 Comment: - Patient has been normotensive - Continue home cardizem (4) Systolic murmur Current Visit: Yes Status: Acute Code(s): R01.1 - CARDIAC MURMUR, UNSPECIFIED SNOMED Code(s): 57104934 Comment: - Patient has known moderate aortic stenosis, no signs of fluid overload. (5) DVT prophylaxis Current Visit: Yes Status: Acute Code(s): Z29.9 - ENCOUNTER FOR PROPHYLACTIC MEASURES, UNSPECIFIED SNOMED Code(s): 711656204 Comment: -Eliquis per ortho surg (6) Full code status Current Visit: Yes Status: Acute Code(s): Z78.9 - OTHER SPECIFIED HEALTH STATUS SNOMED Code(s): 912843658 Status and Disposition: disposition per orthopedic surgery, hopeful D/C Monday to .
[2019-02-16] MEDS: ROSUVASTATIN 40 MG PO SCH (20:09)
[2019-02-16] MEDS: PTO:Travoprost Z 0.004% OPHTH (NF) 2.5 ML BTL BOTH EYES SCH (20:10)
[2019-02-17] MEDS: oxyCODONE/Acetamin 5/325 MG* TAB PO PRN ×6 (02:10→23:38)
[2019-02-17 06:00] LABS: Hematocrit 27 % (35-47); Hemoglobin 9.2 g/dL (12.0-16.0); Mean Platelet Volume 8.3 fL (7.4-10.4); Platelet Count 208 10^3/uL (150-450)
[2019-02-17] MEDS: Docusate CAP* 100 MG PO SCH ×2 (08:55→21:21)
[2019-02-17] MEDS: Apixaban* 2.5 MG TAB PO SCH ×2 (08:55→21:20)
[2019-02-17] MEDS: Aspirin EC TAB* 81 MG TAB.EC PO SCH (08:55)
[2019-02-17] MEDS: AREDS2 PO SCH ×2 (08:55→21:22)
[2019-02-17] MEDS: Vitamin THERAPEUTIC TAB PO SCH (08:55)
[2019-02-17] MEDS: Magnesium Hydroxide LIQ* 30 ML UDC PO SCH ×2 (08:55→20:54)
[2019-02-17] MEDS: Diltiazem CD CAP* 120 MG PO SCH (08:55)
--- NOTE | 2019-02-17 10:50 | PN ---
Progress Note - Progress Note Date of Service: 02/17/19 SOAP: Subjective: Pt is doing well. Pain controlled. Denies F/C, CP/SOB or calf pain Objective: PE_ 89 y/o WDWN F NAD LLE- dressing changed, inc c/d/i, calf soft NT, +DF/PF ankle, NVI Vital Signs Temp Pulse Resp BP Pulse Ox 98.8 F 83 18 146/55 99 02/17/19 07:46 02/17/19 07:46 02/17/19 08:59 02/17/19 07:46 02/17/19 07:57 Laboratory Results - last 24 hr 02/17/19 05:26 Hgb 9.2 L Hct 27 L Plt Count 208 MPV 8.3 Assessment: []s/p LTH POD #5 Plan: []Eliquis for DVT prophylaxis WBAT LLE Cont PT/OT Posterior hip precautions Awaiting SNF rehab placement likely Monday
[2019-02-17] MEDS: ROSUVASTATIN 40 MG PO SCH (21:22)
[2019-02-17] MEDS: PTO:Travoprost Z 0.004% OPHTH (NF) 2.5 ML BTL BOTH EYES SCH (21:23)
[2019-02-17] MEDS: Al Hydrox/Mg Hydrox/Simet LIQ* 30 ML UDC PO PRN (23:47)
[2019-02-18] MEDS: oxyCODONE/Acetamin 5/325 MG* TAB PO PRN ×2 (06:01→10:12)
[2019-02-18 07:42] VITALS: BP 127/44
--- NOTE | 2019-02-18 09:42 | PN ---
Progress Note - Progress Note Date of Service: 02/18/19 SOAP: Subjective: []Patient seen and examined OOB in chair today. She feels well, hip pain is well controlled. Denies CP, SOB, dizziness, nausea. Objective: []Gen: Appears well , NAD LLE: left hip dressing changed, incision CDI no erythema or discharge. Thigh is soft, DF/PF intact, DP2+, sensation intact to light touch distally Calves are supple and nontender without erythema, edema or palpable cords Assessment: []s/p LTH POD #6 Plan: []Eliquis for DVT prophylaxis WBAT LLE Cont PT/OT Posterior hip precautions DC [place] today Vital Signs Temp 98.6 F 02/18/19 07:40 Pulse 81 02/18/19 07:40 Resp 16 02/18/19 09:14 BP 127/44 02/18/19 07:40 Pulse Ox 93 02/18/19 07:40 Intake & Output 02/17/19 02/18/19 02/18/19 18:59 06:59 18:59 Intake Total 970 400 Output Total 850 400 Balance 120 0 Intake: Oral 970 400 Output: Urine 850 400 Other: Date of Last Bowel 02/18/19 Movement # Bowel Movements 0 1 Estimated Stool Amount Small Laboratory Last Values Hgb 9.2 g/dL (12.0-16.0) L 02/17/19 05:26 Hct 27 % (35-47) L 02/17/19 05:26 Plt Count 208 10^3/uL (150-450) 02/17/19 05:26 MPV 8.3 fL (7.4-10.4) 02/17/19 05:26 Sodium 137 mmol/L (135-145) 02/13/19 06:38 Potassium 4.3 mmol/L (3.5-5.0) 02/13/19 06:38 Chloride 107 mmol/L (101-111) 02/13/19 06:38 Carbon Dioxide 24 mmol/L (22-32) 02/13/19 06:38 Anion Gap 6 mmol/L (2-11) 02/13/19 06:38 BUN 15 mg/dL (6-24) 02/13/19 06:38 Creatinine 0.61 mg/dL (0.51-0.95) 02/13/19 06:38 Est GFR ( Amer) 111.7 (>60) 02/13/19 06:38 Est GFR (Non-Af Amer) 92.4 (>60) 02/13/19 06:38 BUN/Creatinine Ratio 24.6 (8-20) H 02/13/19 06:38 Glucose 148 mg/dL (70-100) H 02/13/19 06:38 Calcium 8.6 mg/dL (8.6-10.3) 02/13/19 06:38 Troponin I 0.01 ng/mL (<0.04) 02/14/19 01:18
--- NOTE | 2019-02-18 09:43 | DS ---
Orthopedic Discharge Summary - Discharge Summary Date of Admission:02/12/19 Date of Discharge: 02/18/19 Date of Surgery: 02/12/19 Attending Orthopedic Provider: Dr Mckeon Pre-operative Diagnosis: Left hip osteoarthritis Operative Procedure: left total hip replacement Disposition of Patient: [facility] Condition of Patient: Stable History: JARAD STERLING is a 89 year old F with years of increasingly severe left hip pain. Patient has failed conservative management and has elected to undergo a left total hip replacement Hospital Course: JARAD was admitted to [facility] on 02/12/19. Patient underwent a left total hip replacement without complication followed by a brief recovery in PACU and transfer to the Short Stay Surgical Unit in stable condition. Our hospitalist service, physical therapy and occupational therapy also participated in this patients care. Post-op day 1: patient was alert and in no acute distress. Dressing was clean, dry and intact. Operative extremity dorsiflexion and plantarflexion intact, sensation intact to light touch distally , DP2+. Post-op day two: dressing was changed, incision was clean, dry and intact, exam unchanged for the remainder of hospital course. On 02/18/19 Patient was deemed to be medically and orthopedically stable for discharge and SNF placement was approved. Physical therapy goals were met. Home Medications Medication Instructions Recorded Confirmed Type Aspirin [Aspirin EC] 81 mg PO QAM 12/16/13 02/12/19 History Cyanocobalamin TAB* [Vitamin B12 1 tab PO QAM 12/16/13 02/12/19 History TAB*] Travoprost Z 0.004% OPHTH (NF) 1 drop BOTH EYES BEDTIME 12/16/13 02/12/19 History [Travatan Z 0.004% OPTH (NF)] Fran/D3/Mag11/Zinc/Brine Well Operator/Tristan/Bor 1 tab PO QAM 01/30/19 02/12/19 History [Caltrate 600+D Plus Tablet] Eyelea 1 dose INJ .6WEEK 01/30/19 02/12/19 History Methylcellulose [Fiber Therapy] 500 mg PO QAM 01/30/19 02/12/19 History Mv-Mn/Folic Acid/Calcium/Vit K 1 each PO QAM 01/30/19 02/12/19 History [Women's 50 Plus Multivit Tab] Rosuvastatin Calcium [Crestor] 40 mg PO QPM 01/30/19 02/12/19 History Systane 0.3-0.4% Eye Drop 1 - 2 drop BOTH EYES ONCE PRN 01/30/19 02/12/19 History Vit C/E/Zn/Coppr/Lutein/Zeaxan 2 each PO QAM 01/30/19 02/12/19 History [Preservision Areds 2 Softgel] dilTIAZem HCl [Diltiazem 24Hr ER] 120 mg PO QAM 01/30/19 02/12/19 History Apixaban* [Eliquis*] 2.5 mg PO BID tab 02/17/19 Rx Docusate CAP* [Colace Cap*] 100 mg PO BID cap 02/17/19 Rx oxyCODONE/Acetamin 5/325 MG* 1 tab PO Q4H PRN tab MDD 8 02/17/19 Rx [Percocet 5/325 TAB*] oxyCODONE/Acetamin 5/325 MG* 2 tab PO Q4H PRN tab MDD 8 02/17/19 Rx [Percocet 5/325 TAB*] DISCHARGE INSTRUCTIONS: Weight Bearing as tolerated. Posterior hip precautions Wound Care: OK to shower on post-op day 3, no bathing/ swimming/ submerging wound. Use gentle soap, pat dry. Cover with gauze, BULMARO wrap or tape. Call Orthopedic office for increased drainage, redness, increased pain, or fever. Go to ER with shortness of breath or chest pain. Diet: Regular diet, increase fluids and fiber to prevent constipation. Continue to use stool softeners, call office if no bowel motion within 48 hours. Continue colace as needed for constipation Hip replacements: Continue Hip Precautions- do not cross legs or bend greater than 90 degrees/ squat - Continue physical therapy and occupational therapy exercises as shown. - Facility nurses to do wound checks. - Eliquis- 2.5mg twice daily x 1 month post op. this medication increases bleeding tendency - Pain control with: Percocet 5/325 mg 1-2 tabs by mouth every 4-6 hours as needed for pain. Maximum of 8 tabs per day . hold for sedation Please note that percocet contains tylenol (acetaminophen). Maximum daily dose of tylenol is 4000 mg from all sources. - Antibiotics required prior to any dental work. FOLLOW UP: Follow up with Dr. Mckeon Within 10-14 days, call for appointment Please call our office with any questions or concerns ([phone])
[2019-02-18] MEDS: Magnesium Hydroxide LIQ* 30 ML UDC PO SCH (10:06)
[2019-02-18] MEDS: Diltiazem CD CAP* 120 MG PO SCH (10:13)
[2019-02-18] MEDS: AREDS2 PO SCH (10:13)
[2019-02-18] MEDS: Apixaban* 2.5 MG TAB PO SCH (10:13)
[2019-02-18] MEDS: Vitamin THERAPEUTIC TAB PO SCH (10:13)
[2019-02-18] MEDS: Docusate CAP* 100 MG PO SCH (10:13)
[2019-02-18] MEDS: Aspirin EC TAB* 81 MG TAB.EC PO SCH (10:13)
== END 2019-02-18 11:50 | DRG 470 ==
LOC: AA 09:49 → SSU 17:34
PROVIDERS: ADMIT Orthopaedic Surgery Adult Reconstructive Orthopaedic Surgery; ATTEND Orthopaedic Surgery Adult Reconstructive Orthopaedic Surgery
PROC: 0SRB04A Replacement of Left Hip Joint with Ceramic on Polyethylene Synthetic Substitute, Uncemented, Open Approach (ICD-10-PCS; principal; 2019-02-12 13:00)
DX: M16.12 Unilateral primary osteoarthritis, left hip (principal); H35.30 Unspecified macular degeneration; K21.9 Gastro-esophageal reflux disease without esophagitis; I35.0 Nonrheumatic aortic (valve) stenosis; I10 Essential (primary) hypertension; E78.5 Hyperlipidemia, unspecified; H40.9 Unspecified glaucoma; E04.9 Nontoxic goiter, unspecified; D41.4 Neoplasm of uncertain behavior of bladder; E78.00 Pure hypercholesterolemia, unspecified; K30 Functional dyspepsia; R14.1 Gas pain; R07.89 Other chest pain; K59.00 Constipation, unspecified; R15.9 Full incontinence of feces; I27.20 Pulmonary hypertension, unspecified; Z79.82 Long term (current) use of aspirin; Z86.73 Personal history of transient ischemic attack (TIA), and cerebral infarction without residual deficits; Z90.710 Acquired absence of both cervix and uterus; Z90.49 Acquired absence of other specified parts of digestive tract; Z88.0 Allergy status to penicillin; Z88.2 Allergy status to sulfonamides; Z88.8 Allergy status to other drugs, medicaments and biological substances; Z91.040 Latex allergy status; Z91.048 Other nonmedicinal substance allergy status; Z82.49 Family history of ischemic heart disease and other diseases of the circulatory system; Z80.9 Family history of malignant neoplasm, unspecified; Z83.3 Family history of diabetes mellitus; Z98.42 Cataract extraction status, left eye; Z98.41 Cataract extraction status, right eye; Z85.828 Personal history of other malignant neoplasm of skin; Z80.1 Family history of malignant neoplasm of trachea, bronchus and lung; Z82.0 Family history of epilepsy and other diseases of the nervous system
CPT/HCPCS: 36415; 80048; 84484; 85014; 85018; 85049; 88304; 88311; 93005; A9270-GY; C1713; C1776; G8978-GP-CJ; G8979-GP-CI; G8987-GO-CK; G8988-GO-CI; J1100; J1200; J1885; J2250; J2405; J2704; J3010; J3490

== ENCOUNTER 2019-02-24 04:27 | Emergency (ER) | payer MEDICARE ==
--- OUTSIDE RECORDS SUMMARY | 2019-02-24 04:40 | XMS REPORT | Continuity of Care Document ---
:1930 External Reference #:[id number] Author Name Lubna Lee Care Team Providers Name Role Phone Stephanie Maier MD Primary Care Physician Unavailable Payers Date Identification Numbers Payment Provider Subscriber Effective: 2012 Policy Number: [id number] Medicare Blue Ppo [employer] Number: [id number] [address] [address] PayID: [id number] [place] [address] Expires: 2012 Policy Number: [id number] Medicare Blue Ppo [employer]iarra [employer] Group Number: MEDICARE BLUE PPO [address] [address] Group Name: [place] [address] PayID: [id number] Problems Active Problems Provider Date [...] With [employer]one D[employer] without problems. Worked at [employer] in 2009. 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 [id number] Tablets Proctosol HC Use as directed 28.350gm [...] Tramadol HCL 1-2 tablets every 42tabs M54.9 [facility] 05/15/2018 - 50mg 6 hours as needed [...] Zolpidem Tartrate 1/2-1 po tablet 30tabs 780.52 [facility] 06/20/2013 - 5mg at bedtime as Katie Maier 2014 Tablets needed Zostavax 1 dose s/c 1units [facility] 03/28/2012 - Solution Katie Maier 06/18/2012 Rec Diltiazem HCL ER Take One Capsule 30caps 786.05 [facility] 02/13/2012 - By Mouth Once Katie Maier 06/19/2012 180mg Caps ER 24HR Daily Atorvastatin Calcium 1 po qd 90tabs [facility] 09/21/2011 - Katie Maier 01/01/2012 40mg Tablets Diltiazem CD 1 PO qd 30caps 786.05 [facility] 05/17/2011 - 180mg Katie Maier 02/13/2012 Caps ER 24HR Lisinopril 1 tablet once 30tabs 786.05 Stephanie - 10mg daily Katie Maier 05/17/2011 Tablets Cipro 1 tablet twice a 20tabs Unknown - 500mg Tablets day 10/28/2010 Crestor Take One Tablet 30tabs [facility] - 40mg Tablets By Mouth AT Katie Maier 09/21/2011 Bedtime Aleve 1 po prn 60caps Unknown - 220mg Capsules 06/19/2012 Flonase Allergy 2 sprays each Unknown - Relief nostril once 08/24/2015 50mcg/Act daily Suspension Medications Administered in Office Medication SIG Qnty Indications Ordering Provider Date Depomedrol 40MG Swati Mckeon M.D. 11/19/2018 Injection Inj, Regadenoson, 0.1 MG Deshawn Zhou DO [facility] 09/11/2015 Injection Inj, Regadenoson, 0.1 MG RIGO Hooker 09/11/2015 Injection Technetium TC 99M Deshawn S. Zhou, DO [facility] 09/11/2015 Tetrofosmin, Per Unit Dose Up To 40 Millicuries Injection Technetium TC 99M RIGO Hooker 09/11/2015 Tetrofosmin, Per Unit Dose Up To 40 Millicuries Injection Immunizations CPT Code Status Date Vaccine Lot # [id number] Given 06/05/2018 Influenza Virus Vaccine, Quadrivalent, Split, Preservative Free 43453 Given 05/11/2017 Influenza Virus Vaccine, Quadrivalent, Split, [id number] Preservative Free 17714 Given 06/17/2016 Influ Virus Vaccine, Quadrivalent, Split Virus, [id number] [address] Given 06/13/2015 Influenza Virus Vaccine, Quadrivalent, Split, [id number] Preservative Free 54988 Given 02/24/2015 Pneumococcal Conjugate Vaccine 13 Valent For [id number] Intramuscular Use 48208 Given 06/17/2014 Influenza Virus Vaccine, Quadrivalent, Split, [id number] Preservative Free 51943 Given 06/20/2013 Flu Vaccine Split Virus Preservative Free For [id number] Indiv 3Yr Older [id number] Given 05/30/2012 Fluzone Vaccine 49881 Given 03/29/2012 Zoster (Zostavax) [id number] Given 05/17/2011 Afluria Vaccine [id number] 88323 Given 07/09/2010 Influenza Virus 3Yrs & Over [id number] 15186 Given 04/27/2009 Influenza Virus 3Yrs & Over 83185 Given 06/25/2008 Influenza Virus 3Yrs & Over 51820 Given 06/25/2008 Influenza Virus 3Yrs & Over 04133 Given 06/28/2007 Influenza Virus 3Yrs & Over [...] Result H/L Range Note Urinalysis Profile 01/30/2019 [facility] Urine Color Yellow [address] [place] [address] [phone] Urine Appearance Cloudy Urine Specific Dola 1.013 N 1.010-1.030 Urine pH 7.0 N [...] Present Abnormal Absent CBC Auto Diff 01/30/2019 [facility] White Blood 6.9 10^3/uL N 3.5-10.[address] [place] [address] [phone] Red Blood Count 4.12 10^6/uL N 3.70-4.87 [...] Red Blood Cells % 0.0 Inr/Protime 01/30/2019 [facility] Inr 0.93 N 0.82-1.[address] [place] [address] [phone] Laboratory test 01/30/2019 [facility] Partial 32.6 seconds N 26.0-38.[address] [place] [address] PTT [phone] Type & Screen 01/30/2019 [facility] Patient A Positive [address] Blood Type [place], [place] [phone] Antibody Screen NEGATIVE Urine Culture And 01/30/2019 [facility] Urine Culture SEE RESULT [address] [place] [address] [phone] Lipid Profile 01/15/2019 [facility] Triglycerides 132 mg/dL 4 (Trig/Chol/HDL) [address] [place] [address] [phone] Cholesterol 143 mg/dL 5 HDL Cholesterol 46.8 mg/dL 6 LDL Cholesterol 70 mg/dL 7 Comp Metabolic Panel 01/15/2019 [facility] Sodium 141 mmol/L N 135-[address] [place] [address] [phone] Potassium 4.1 mmol/L N 3.5-5.0 Chloride 105 [...] Egfr Non- 84.5 >60 Egfr 102.3 >60 8 Xray 11/19/2018 [facility] Inj/Aspir Major <pending> JT Or Bursa W/ US Comp Metabolic 01/09/2018 [facility] Sodium 139 mmol/L N 139- [address] [place] [address] [phone] Potassium 4.5 mmol/L N 3.5-5.0 Chloride 105 [...] Egfr Non- 87.8 >60 Egfr 112.9 >60 9 Lipid Profile 01/09/2018 [facility] Triglycerides 169 mg/dL 10 (Trig/Chol/HDL) [address] [place] [address] [phone] Cholesterol 140 mg/dL 11 HDL Cholesterol 42.0 mg/dL 12 LDL Cholesterol 64 mg/dL 13 Laboratory test 01/09/2018 [facility] Erythrocyte Sed 15 mm/Hr N 0-[address] [place] [address] [phone] Protein 01/09/2018 [facility] Total 6.7 g/dL 6.3 - Electrophoresis [address] Protein(Pep) 7.9 [place] [address] [phone] Albumin 3.2 g/dL Abnormal 3.4-4.7 Alpha-1 Globulin 0.2 g/dL 0.1-0.3 Alpha-2 Globulin 1.2 g/dL Abnormal 0.6-1.0 Beta Globulin 1.2 g/dL 0.7-1.2 Gamma Globulin 0.9 g/dL 0.6-1.6 Albumin/Globulin Ratio 0.93 Impression See Comment 14 CBC Auto Diff 01/09/2018 [facility] White Blood 8.2 10^3/uL N 3.5-10.[address] [place] [address] [phone] Red Blood Count 4.11 10^6/uL N 4.0-5.4 [...] Blood Cells % 0 Lipid Profile 02/28/2017 [facility] Triglycerides 159 mg/dL N 15 (Trig/Chol/HDL) [address] [place] [address] [phone] Cholesterol 140 mg/dL N 16 HDL Cholesterol 39.3 mg/dL N 17 LDL Cholesterol 69 mg/dL N 18 Comp Metabolic Panel 02/28/2017 [facility] Sodium 138 mmol/L N 133-[address] [place] [address] [phone] Potassium 4.1 mmol/L N 3.5-5.0 Chloride 107 [...] 91.1 N >60 Egfr 117.1 N >60 19 CBC Auto Diff 02/28/2017 [facility] White Blood 7.1 10^3/uL N 3.5-10.[address] [place] [address] [phone] Red Blood Count 4.19 10^6/uL N 4.0-5.4 [...] % 0 N Urine Culture And 02/23/2017 [facility] Urine Culture SEE RESULT [address] [place] [address] [phone] Ua Routine 02/23/2017 [facility] Ua Specific 1.005 Dola Ua PH 8 Ua Color yellow Ua Appera clear Ua WBC trace Ua Protein neg Ua Glucose neg Ua Ketones neg Ua Bilirubin neg Ua Urobilinogen neg Ua Nitrite neg Ua Occult Blood neg Lipid Profile 08/18/2016 [facility] Triglycerides 137 mg/dL N 21 (Trig/Chol/HDL) [address] [place] [address] [phone] Cholesterol 147 mg/dL N 22 HDL Cholesterol 48.2 mg/dL N 23 LDL Cholesterol 71 mg/dL N 24 Comp Metabolic Panel 08/18/2016 [facility] Sodium 140 mmol/L N 133-[address] [place] [address] [phone] Potassium 4.2 mmol/L N 3.5-5.0 Chloride 105 [...] 91.3 N >60 Egfr 117.4 N >60 25 Comp Metabolic Panel 08/25/2015 [facility] Sodium 140 mmol/L N 133-[address] [place] [address] [phone] Potassium 4.1 mmol/L N 3.5-5.0 Chloride 105 [...] 77.0 N >60 Egfr 99.0 N >60 26 Lipid Profile 08/25/2015 [facility] Triglycerides 149 mg/dL N 27 (Trig/Chol/HDL) [address] [place] [address] [phone] Cholesterol 157 mg/dL N 28 HDL Cholesterol 47.7 mg/dL N 29 LDL Cholesterol 80 mg/dL N 30 CKMB 08/25/2015 [facility] CKMB ng/mL 1.7 ng/mL N 0.6-6.[address] [place] [address] [phone] Laboratory test 08/25/2015 [facility] Troponin-I 0.00 ng/mL N <0.[address] (TnI) [place] [address] [phone] CBC Auto Diff 08/25/2015 [facility] White Blood 6.5 10^3/uL N 3.5-10.[address] [place] [address] [phone] Red Blood Count 4.28 10^6/uL N 4.0-5.4 [...] Cells % 0 N Laboratory test 08/25/2015 [facility] B-Type Natriuretic 74 pg/ mL N [address] [place] [address] [phone] Lipid Profile 07/30/2014 [facility] Triglycerides 202 mg/dL N 33, 34 (Trig/Chol/HDL) [address] [place] [address] [phone] Cholesterol 152 mg/dL N 35 HDL Cholesterol 44.5 mg/dL N 36 LDL Cholesterol 67 mg/dL N 37 Comp Metabolic Panel 07/30/2014 [facility] Sodium 139 mmol/L N 133-[address] [place] [address] [phone] Potassium 4.2 mmol/L N 3.5-5.0 38 Chloride 104 mmol/L N 101-111 Co2 Carbon [...] 85.3 N >60 Egfr 109.7 N >60 39 Throat-Beta 01/14/2014 [facility] Throat Beta Strep (SEE 40 , [address] Culture NOTE) [place] [address] [phone] Surgical 12/23/2013 [facility] S RUN DATE: [address] 12/24/ [place] [address] <SEE [phone] NOTE> Surgical 12/17/2013 [facility] S RUN DATE: [address] 12/17/ [place] [address] <SEE [phone] NOTE> Lipid Profile 06/13/2013 [facility] Triglycerides 155 mg/dL 40-2 (Trig/Chol/HDL) [address] 00 [place] [address] [phone] Cholesterol 149 mg/dL Less than 200 HDL Cholesterol 47 mg/dL 40-60 44 Cholesterol/HDL Ratio 3.2 Average 1-4.44 LDL Cholesterol 71.0 Less Than 100 45 Comp Metabolic Panel 06/13/2013 [facility] Sodium 140 mmol/L 133-[address] [place] [address] [phone] Potassium 4.1 mmol/L 3.5-5.0 Chloride 107 mmol/L [...] Egfr Non- 95.5 >60 Egfr 122.8 >60 46 CBC W/Electronic 04/01/2013 [facility] White Blood 6.9 10^3/uL 4.8-10.[address] [place] [address] [phone] Red Blood Count 4.12 10^6/uL 4.0-5.4 Hemoglobin [...] Blood Cells % 0 CMP Panel 04/01/2013 [facility] Sodium 141 mmol/L 133-[address] [place] [address] [phone] Potassium 4.0 mmol/L 3.5-5.0 Chloride 107 mmol/L [...] Egfr Non- 79.9 >60 Egfr 102.8 >60 47 Ua Routine 03/28/2013 [facility] Ua Specific Dola 1.005 Ua PH 5.0 Ua Color neg Ua Appera neg Ua WBC neg Ua Protein neg Ua Glucose neg Ua Ketones neg Ua Bilirubin neg Ua Urobilinogen neg Ua Nitrite neg Ua Occult Blood neg Laboratory test finding 06/26/2012 [facility] Alt 26 U/L 14- 54 48 [address] [place] [address] [phone] Ast 25 U/L 12-42 49 TSH (Thyroid Stimulating Horm) 2.57 MIU/ML 0.34-5.60 50 Vitamin B12 336 pg/mL 180-914 51 Lipid Profile 06/26/2012 [facility] Triglycerides 95 mg/dL 40 -200 (Trig/Chol/HDL) [address] [place] [address] [phone] Cholesterol 157 mg/dL Less than 200 52 HDL Cholesterol 57 mg/dL 40-60 53 Cholesterol/HDL Ratio 2.8 AVERAGE 1-4.44 LDL Cholesterol 81.0 mg/dL Less Than 100 Comp Metabolic Panel 12/27/2011 [facility] Sodium 140 mmol/L 135-145 [address] [place] [address] [phone] Potassium 4.1 mmol/L 3.5-5.0 Chloride 105 mmol/L 101-111 Co2 (Carbon Dioxide) 31.0 mmol/L 22-32 Anion Gap 4.0 mmol/L 2-11 54 Glucose 96 mg/dL 70-100 BUN 16 mg/dL 6-24 Creatinine 0.8 mg/dL 0.50-1.40 One Over Creatinine 1.25 BUN/Creatinine Ratio 20.0 8-20 Calcium 9.3 mg/dL 8.1-9.9 Total Protein 6.2 GM/DL 6.2-8.1 Albumin 3.8 GM/DL 3.2-5.2 Globulin 2.4 GM/DL 2-4 Albumin/Globulin Ratio 1.6 1-3 Bilirubin Total 0.5 mg/dL 0.4-1.5 55 Alkaline Phosphatase 77 U/L 30-110 Alt (SGPT) 28 U/L 14-54 Ast (Sgot) 27 U/L 12-42 eGFR Non- 68.8 > 60 eGFR 88.5 > 60 56 Lipid Profile 12/27/2011 [facility] Triglyceride 137 mg/dL 40 -200 (Trig/Chol/HDL) [address] [place] [address] [phone] Cholesterol 184 mg/dL Less Than 200 57 High Density Lipoprotein 50 mg/dL 40-60 58 Cholesterol/HDL Ratio 3.68 AVERAGE 1-4.44 Low Density Lipoprotein 107 mg/dL High Less Than 100 59 Lipid Profile 05/17/2011 [facility] Triglyceride 92 mg/dL 40- 200 (Trig/Chol/HDL) [address] [place] [address] [phone] Cholesterol 156 mg/dL Less Than 200 60 High Density Lipoprotein 46 mg/dL 40-60 61 Cholesterol/HDL Ratio 3.39 AVERAGE 1-4.44 Low Density Lipoprotein 92 mg/dL Less Than 100 62 Comp Metabolic Panel 05/17/2011 [facility] Sodium 142 mmol/L 135-145 [address] [place] [address] [phone] Potassium 4.6 mmol/L 3.5-5.0 Chloride 107 mmol/L 101-111 Co2 (Carbon Dioxide) 30.0 mmol/L 22-32 Anion Gap 5.0 mmol/L 2-11 63 Glucose 103 mg/dL High 70-100 BUN 12 mg/dL 6-24 Creatinine 0.7 mg/dL 0.50-1.40 One Over Creatinine 1.42 BUN/Creatinine Ratio 17.1 8-20 Calcium 9.4 mg/dL 8.1-9.9 Total Protein 6.3 GM/DL 6.2-8.1 Albumin 3.7 GM/DL 3.2-5.2 Globulin 2.6 GM/DL 2-4 Albumin/Globulin Ratio 1.4 1-3 Bilirubin Total 0.5 mg/dL 0.4-1.5 64 Alkaline Phosphatase 61 U/L 30-110 Alt (SGPT) 25 U/L 14-54 Ast (Sgot) 28 U/L 12-42 eGFR Non- 80.3 > 60 eGFR 103.3 > 60 65 Manual Differential 09/09/2010 [facility] Polysegmented 82 % 38-[address] [place] [address] [phone] Band Neutrophil 4 % 0-8 Lymphocyte 11 % Low 25-47 Monocyte 3 % 0-13 Absolute Neutrophil Count 9.9 RBC Morphology NORMAL CBC With 09/09/2010 [facility] White Blood 11.6 CUMM High 4.8- 10.8 Electronic Diff [address] [place] [address] [phone] Red Cell Count 3.99 CUMM Low 4.2-5.4 Hemoglobin 12.9 g/dL 12.0-16.0 Hematocrit 38 % 35-47 Mean Corpuscular Volume 95 um3 79-97 Mean Corpuscular Hemoglob 32 pg High 27-31 Mean Corpuscular HGB Cone 34 g/dL 32-36 Redcell Distribution WDTH 14 % 10.5-15 Platelet Count 259 CUMM 150-450 Mean Platelet Volume 8.4 um3 7.4-10.4 66 Comp Metabolic Panel 09/09/2010 [facility] Sodium 137 mmol/L 135-[address] [place] [address] [phone] Potassium 4.4 mmol/L 3.5-5.0 Chloride 101 mmol/L 101-111 Co2 (Carbon Dioxide) 27.0 mmol/L 22-32 Anion Gap 9.0 mmol/L 2-11 67 Glucose 80 mg/dL 70-100 BUN 10 mg/dL 6-24 Creatinine 0.80 mg/dL 0.50-1.40 One Over Creatinine 1.20 BUN/Creatinine Ratio 12.5 8-20 Calcium 9.1 mg/dL 8.1-9.9 Total Protein 6.1 GM/DL Low 6.2-8.1 Albumin 3.4 GM/DL 3.2-5.2 Globulin 2.7 GM/DL 2-4 Albumin/Globulin Ratio 1.3 1-3 Bilirubin Total 0.7 mg/dL 0.4-1.5 68 Alkaline Phosphatase 75 U/L 30-110 Alt (SGPT) 24 U/L 14-54 Ast (Sgot) 25 U/L 12-42 eGFR Non- 73.4 > 60 eGFR 88.8 > 60 69 Urine Culture & 09/01/2010 [facility] Urine Culture NG [address] [place] [address] [phone] Laboratory test 09/01/2010 [facility] Amylase 48 U/L 20-120 [address] [place] [address] [phone] Lipase 18 U/L Low 22-51 C Reactive Protein 2.3 mg/dL High Less Than 0.5 Laboratory test 09/01/2010 [facility] Stool For NEGATIVE Negative finding [address] [place] [address] [phone] CBC With 09/01/2010 [facility] White Blood 6.6 CUMM 4.8-10.8 Electronic Diff [address] [place] [address] [phone] Red Cell Count 4.11 CUMM Low 4.2-5.4 [...] Eosinophils 0.1 0-0.6 Abs Basophils 0 0-0.2 72 Urinalysis W/Microscopic 09/01/2010 [facility] Ua Color YELLOW Yellow [address] [place] [address] [phone] Appearance-Urine CLEAR Clear Specific Dola-Ur 1.027 1.010-1.030 Esterase-Urine 1+ Abnormal Negative Nitrite NEGATIVE Negative [id number]-Gs-[id number] NEGATIVE Negative Protein-Urine TRACE Abnormal Negative PH-Urine 5.5 5-9 Blood-Urine TRACE Abnormal Negative Ketones-Urine NEGATIVE Negative Bilirubin-Ur NEGATIVE Negative Glucose-Urine NEGATIVE Negative WBC-Urine 5-10 Abnormal 0-5 RBC-Urine 0-2 0-2 Mucus Urine MODERATE None Epith Cells-Ur FEW None Comp Metabolic Panel 09/01/2010 [facility] Sodium 137 mmol/L 135-145 [address] [place] [address] [phone] Potassium 4.3 mmol/L 3.5-5.0 Chloride 106 mmol/L 101-111 Co2 (Carbon Dioxide) 24.0 mmol/L 22-32 Anion Gap 7.0 mmol/L 2-11 73 Glucose 110 mg/dL High 70-100 BUN 18 mg/dL 6-24 Creatinine 0.70 mg/dL 0.50-1.40 One Over Creatinine 1.40 BUN/Creatinine Ratio 25.7 High 8-20 Calcium 8.8 mg/dL 8.1-9.9 Total Protein 6.2 GM/DL 6.2-8.1 Albumin 3.6 GM/DL 3.2-5.2 Globulin 2.6 GM/DL 2-4 Albumin/Globulin Ratio 1.4 1-3 Bilirubin Total 0.7 mg/dL 0.4-1.5 74 Alkaline Phosphatase 62 U/L 30-110 Alt (SGPT) 23 U/L 14-54 Ast (Sgot) 25 U/L 12-42 eGFR Non- 85.6 > 60 eGFR 103.5 > 60 75 Comp Metabolic Panel 05/05/2010 [facility] Sodium 141 mmol/L 135-145 [address] [place] [address] [phone] Potassium 4.1 mmol/L 3.5-5.0 Chloride 106 mmol/L 101-111 Co2 (Carbon Dioxide) 29.0 mmol/L 22-32 Anion Gap 6.0 mmol/L 2-11 76 Glucose 85 mg/dL 70-100 77 BUN 19 mg/dL 6-24 Creatinine 0.70 mg/dL 0.50-1.40 One Over Creatinine 1.40 BUN/Creatinine Ratio 27.1 High 8-20 Calcium 9.5 mg/dL 8.1-9.9 78 Total Protein 6.4 GM/DL 6.2-8.1 Albumin 3.9 GM/DL 3.2-5.2 Globulin 2.5 GM/DL 2-4 Albumin/Globulin Ratio 1.6 1-3 Bilirubin Total 0.7 mg/dL 0.4-1.5 79 Alkaline Phosphatase 52 U/L 30-110 Alt (SGPT) 23 U/L 14-54 Ast (Sgot) 22 U/L 12-42 eGFR Non- 85.6 > 60 eGFR 103.5 > 60 80 Lipid Profile 05/05/2010 [facility] Triglyceride 182 mg/dL 40 -200 (Trig/Chol/HDL) [address] [place] [address] [phone] Cholesterol 156 mg/dL Less Than 200 81 High Density Lipoprotein 37 mg/dL Low 40-60 82 Cholesterol/HDL Ratio 4.22 AVERAGE 1-4.44 Low Density Lipoprotein 83 mg/dL Less Than 100 83 1 *Ascorbic acid is present which may interfere with detection of blood. 2 Standard intensity warfarin therapeutic range: 2.0-3.0 High intensity warfarin therapeutic range: 2.5-3.5 3 SEE RESULT BELOW Name: TIARRA STERLING : [address]: Swati Mckeon MD Acct: [id number] Unit: [id number] AGE: 89 Location: [facility] Re01/30/19 SEX: F Status: REG REF SPEC: [id number] TAMERA: 01/30/19-[address]: Swati Mckeon MD REQ: [id number] RECD: 01/30/197115 STATUS: COMP _ SOURCE: URINE SPDESC: ORDERED: Urine Culture QUERIES: Urine Source: Clean Catch Procedure Result Reported Site Urine Culture Final 01/31/19- 1213 ML No Growth (<1,000 CFU/mL) * ML - Main Lab . END OF REPORT DEPARTMENT OF PATHOLOGY, [address] [place] [address] Reuben Contreras M.D. Director [facility] # [id number] 4 Desirable: <150 Borderline High: 150-199 High: 200-499 Very High: >500 5 Desirable: <200 Borderline High: 200-239 High: >239 6 Low: <40 Desirable: 40-60 High: >60 7 Desirable: <100 Near Optimal: 100-129 Borderline High: 130-159 High: 160-189 Very High: >189 8 Because ethnic data is not always [...] 5 Kidney failure <15 (or dialysis) 9 Because ethnic data is not always readily [...] 15-29 5 Kidney failure <15 (or dialysis) 10 Desirable: <150 Borderline High: 150-199 High: 200-499 Very High: >500 11 Desirable: <200 Borderline High: 200-239 High: >239 12 Low: <40 Desirable: 40-60 High: >60 13 Desirable: <100 Near Optimal: 100-129 Borderline High: 130-159 High: 160-189 Very High: >189 14 RESULT: No apparent monoclonal protein on serum electrophoresis. Test Performed by: [address] [address] 15 Desirable <150 Borderline high 150-199 High 200-499 Very High >500 16 Desirable <200 Borderline high 200-239 High >239 17 Low <40 Desirable: 40-60 High: >60 18 Desirable: <100 mg/dL Near Optimal: 100-129 mg/dL Borderline High: 130-159 mg/dL High: 160-189 mg/dL Very High: >189 mg/dL 19 Because ethnic data is not always readily [...] 15-29 5 Kidney failure <15 (or dialysis) 20 SEE RESULT BELOW Name: TIARRA STERLING : [address]: Stephanie Maier MD Acct: [id number] Unit: [id number] AGE: 87 Location: [facility] Re02/23/17 SEX: F Status: REG REF SPEC: [id number] TAMERA: 02/23/17-[address]: Stephanie Maier MD REQ: [id number] RECD: 02/23/17 STATUS: COMP _ SOURCE: URINE SPDESC: ORDERED: Urine Culture COMMENTS: [id number] Urine Source: Random Procedure Result Reported Site Urine Culture Final 02/24/17- 1605 ML No Growth (<1,000 CFU/mL) * ML - MAIN LAB ([facility]) . END OF REPORT * ML=Testing performed at Main Lab DEPARTMENT OF PATHOLOGY, [address] [place] [address] Reuben Contreras M.D. Director [facility] # [id number] 21 Desirable <150 Borderline high 150-199 High 200-499 Very High >500 22 Desirable <200 Borderline high 200-239 High >239 23 Low <40 Desirable: 40-60 High: >60 24 Desirable: <100 mg/dL Near Optimal: 100-129 mg/dL Borderline High: 130-159 mg/dL High: 160-189 mg/dL Very High: >189 mg/dL 25 Because ethnic data is not always [...] 5 Kidney failure <15 (or dialysis) 26 Because ethnic data is not always readily [...] 15-29 5 Kidney failure <15 (or dialysis) 27 Desirable <150 Borderline high 150-199 High 200-499 Very High >500 28 Desirable <200 Borderline high 200-239 High >239 29 Low <40 Desirable: 40-60 High: >60 30 Desirable: <100 mg/dL Near Optimal: 100-129 mg/dL Borderline High: 130-159 mg/dL High: 160-189 mg/dL Very High: >189 mg/dL 31 Reference Range and Interpretation: TnI (ng/mL) Interpretation Less Than 0.03 ng/mL Not supportive of diagnosis of [place] 0.03 - 0.50 ng/mL Indeterminate: suggest serial studies if clinically indicated. Greater than 0.5 ng/mL Consistent with diagnosis of [place] 32 >100 to <200 pg/mL: likely compensated congestive heart failure (CHF) 200 to 400 pg/mL: likely moderate CHF >400 pg/mL: likely moderate to severe CHF 33 PT IS FASTING 34 Desirable <150 Borderline high 150-199 High 200-499 Very High >500 35 Desirable <200 Borderline high 200-239 High >239 36 Low <40 Desirable: 40-60 High: >60 37 Desirable <100 Near Optimal 100-129 Borderline high 130-159 High 160-189 Very High >189 38 Potassium reference range changed effective 07/06/14 39 Because ethnic data is not always readily [...] 15-29 5 Kidney failure <15 (or dialysis) 40 Comment: collected by sarah saavedra 41 RUN DATE: 01/16/14 [facility] LAB LIVE PAGE 1 RUN TIME: [address] [place] [address] Specimen Inquiry Name: TIARRA STERLING : [address]: Jann Rondon MD Acct: [id number] Unit: [id number] AGE: 83 Location: [facility] Re01/14/14 SEX: F Status: DEP ER SPEC: [id number] TAMERA: 01/14/14-1016 [facility] DR: Jann Rondon MD REQ: [id number] RECD: 01/14/14-1210 STATUS: COMP JUANITOHR DR: Stephanie Maier MD _ SOURCE: THROAT SPDESC: ORDERED: Throat Beta Str COMMENTS: Comment: collected by sarah saavedra Procedure Result Verified Site Throat Beta Strep Culture Final 01/16/14- 0900 ML Negative For Group A Beta Streptococcus END OF REPORT * ML=Testing performed at Main Lab DEPARTMENT OF PATHOLOGY, [address] [place] [address] Reuben Contreras M.D. Director [facility] # [id number] 42 RUN DATE: 12/24/13 [facility] LAB LIVE PAGE 1 RUN TIME: [address] [place] [address] Specimen Inquiry Name: TIARRA STERLING : [address]: Facundo Flaherty MD Acct: [id number] Unit: [id number] AGE: 83 Location: [place] Re12/23/13 SEX: F Status: REG SDC SPEC: [id number] TAMERA: 12/23/13- SUBM DR: Facundo Flaherty MD REQ: [id number] RECD: 12/23/13-316 STATUS: JERAMY VARGAS DR: Stephanie Maier MD [...] at Main Lab DEPARTMENT OF PATHOLOGY, [facility] [place] [address] Reuben Contreras M.D. Director [facility] Permit #[id number] RUN DATE: 12/17/13 [facility] LAB LIVE PAGE 1 RUN TIME: 3874 [facility] [employer] [place], [place] [address] Specimen Inquiry Name: TIARRA STERLING : [address]: Facundo Flaherty MD Acct: [id number] Unit: [id number] AGE: 83 Location: [facility] Re12/17/13 SEX: F Status: REG REF SPEC: [id number] TAMERA: 12/17/13- [facility] DR: Facundo Flaherty MD REQ: [id number] RECD: 12/17/13 STATUS: JERAMY VARGAS DR: Stephanie Medina MD _ ORDERED: Consult w/slide FINAL DIAGNOSIS Skin, right nasolabial fold, shave biopsy: A. Basal cell carcinoma, nodular type. B. Basal cell carcinoma is broadly transected along the base of this shave biopsy. PRE-OPERATIVE DIAGNOSIS Basal cell carcinoma. GROSS DESCRIPTION Received is one glass slide labeled [id number], Tiarra Sterling Fast Track Asiacandie . Accompanying this slide is a pathology report labeled Stephanie Sterling, [id number] [place], [address] [place] [address], [facility] [address] Brooke Lucero on October 31, 2013. Signed (signature on file) Reuben Contreras MD 1518 END OF REPORT * ML=Testing performed at Main Lab DEPARTMENT OF PATHOLOGY, [address] [place] [address] Reuben Contreras M.D. Director [facility] Permit #[id number] HDL Interpretation: Undesirable: High Risk: Less than 40 mg/dL Desirable: Low Risk: Greater than 60 mg/dL 45 LDL Interpretation: Low Risk Optimal Level: LDL Less than 100 mg/dL Near or Above Optimal: LDL 100-129 mg/dL Borderline High Risk: LDL 130-159 mg/dL High Risk: LDL 160-189 mg/dL Very High Risk: LDL Greater than 189 mg/dL 46 Because ethnic data is not always [...] 5 Kidney failure <15 (or dialysis) 47 Because ethnic data is not always readily [...] 15-29 5 Kidney failure <15 (or dialysis) 48 PT IS FASTING 49 PT IS FASTING 50 PT IS FASTING 51 PT IS FASTING 52 Desirable: Less than 200 MG/DL Borderline-High Risk: 200-239 MG/DL High-Risk: 240 MG/DL and over 53 HDL Interpretation: Undesirable: High Risk: Less than 40 MG/DL Desirable: Low Risk: Greater than 60 MG/DL 54 Anion gap measurement may be of limited value in the presence of any alkalosis, especially in a combined acid base disorder. . 55 A metabolite of Naproxen, O-desmethylnaproxen, has been shown to interfere with the Jendrassik-Waimanalo method for measuring total bilirubin. Samples from patients who have taken Naproxen have shown spurious elevation in total bilirubin levels. 56 Because ethnic data is not always readily [...] 15-29 5 Kidney failure <15 (or dialysis) 57 CHOLESTEROL INTERPRETATION: Desirable: Less than 200 [...] Risk: LDL Greater than 189 MG/DL 60 CHOLESTEROL INTERPRETATION: Desirable: Less than 200 MG/DL Borderline-High Risk: 200-239 MG/DL High-Risk: 240 MG/DL and over 61 HDL INTERPRETATION: Undesirable: High Risk: Less than 40 MG/DL Desirable: Low Risk: Greater than 60 MG/DL 62 LDL INTERPRETATION: Low Risk Optimal Level: LDL Less than 100 MG/DL Near or Above Optimal: LDL 100-129 MG/DL Borderline High Risk: LDL 130-159 MG/DL High Risk: LDL 160-189 MG/DL Very High Risk: LDL Greater than 189 MG/DL 63 Anion gap measurement may be of limited value in the presence of any alkalosis, especially in a combined acid base disorder. . 64 A metabolite of Naproxen, O-desmethylnaproxen, has been shown to interfere with the Jendrassik-Waimanalo method for measuring total bilirubin. Samples from patients who have taken Naproxen have shown spurious elevation in total bilirubin levels. 65 Because ethnic data is not always readily [...] 15-29 5 Kidney failure <15 (or dialysis) 66 Lymphopenia % 67 Anion gap measurement may be of limited value in the presence of any alkalosis, especially in a combined acid base disorder. . 68 A metabolite of Naproxen, O-desmethylnaproxen, has been shown to interfere with the Jendrassik-Corin method for measuring total bilirubin. Samples from patients who have taken Naproxen have shown spurious elevation in total bilirubin levels. 69 Because ethnic data is not always readily [...] 15-29 5 Kidney failure <15 (or dialysis) 70 FINAL: NO GROWTH DAY 2 (<1,000 CFU/mL) 71 PLEASE NOTE NEW REFERENCE RANGE. 72 Lymphopenia % 73 Anion gap measurement may be of limited value in the presence of any alkalosis, especially in a combined acid base disorder. . 74 A metabolite of Naproxen, O-desmethylnaproxen, has been shown to interfere with the Jendrassik-Corin method for measuring total bilirubin. Samples from patients who have taken Naproxen have shown spurious elevation in total bilirubin levels. 75 Because ethnic data is not always readily [...] 15-29 5 Kidney failure <15 (or dialysis) 76 Anion gap measurement may be of limited value in the presence of any alkalosis, especially in a combined acid base disorder. . 77 Note change in reference range as of 04/24/08. The change was based on recommendations from the [employer]. 78 Please note change in reference range effective 08 . 79 A metabolite of Naproxen, O-desmethylnaproxen, has been shown to interfere with the Jendrassik-Corin method for measuring total bilirubin. Samples from patients who have taken Naproxen have shown spurious elevation in total bilirubin levels. 80 Because ethnic data is not always readily [...] 15-29 5 Kidney failure <15 (or dialysis) 81 CHOLESTEROL INTERPRETATION: Desirable: Less than 200 MG/DL Borderline-High Risk: 200-239 MG/DL High-Risk: 240 MG/DL and over 82 HDL INTERPRETATION: Undesirable: High Risk: Less than 40 MG/DL Desirable: Low Risk: Greater than 60 MG/DL 83 LDL INTERPRETATION: Low Risk Optimal Level: LDL Less than 100 MG/DL Near or Above Optimal: LDL 100-129 MG/DL Borderline High Risk: LDL 130-159 MG/DL High Risk: LDL 160-189 MG/DL Very High Risk: LDL Greater than 189 MG/DL Procedures Date Code Description Status 02/06/2019 [id number] Diabetic Retinal Eye Exam Completed 01/31/2019 69239 Destruction Of Benign Lesions Any Method 1-14 lesions Completed 2019 47638 EKG Tracing & Interpretation Completed 12/20/2018 33235 ECHO Transthoracic, Real-Time 2D With Doppler And Completed Color Flow 12/20/2018 01436 ECHO Transthoracic, Real-Time 2D With Doppler And Completed Color Flow 11/19/2018 26505 Inj/Aspir Major JT Or Bursa W/ US Completed 04/17/2018 [id number] Diabetic Retinal Eye Exam Completed 12/12/2017 21611 ECHO Transthoracic, Real-Time 2D With Doppler And Completed Color Flow 12/12/2017 69730 ECHO Transthoracic, Real-Time 2D With Doppler And Completed Color Flow 07/06/2017 04891 Destruction Of Benign Lesions Any Method 1-14 lesions Completed 05/30/2017 86114 Destruction Of Benign Lesions Any Method 1-14 lesions Completed 05/22/2017 [id number] Bone Mineral Density Test Completed 05/03/2017 782258079 Diabetic Retinal Eye Exam Completed 09/11/2015 60284 Stress Test Completed 09/11/2015 09069 Myocardial Perfusion Imaging Tomographic (Spect) Completed Multiple Studies 09/11/2015 24643 Myocardial Perfusion Imaging Tomographic (Spect) Completed Multiple Studies 08/24/2015 56491 EKG Tracing & Interpretation Completed 03/10/2015 [id number] Mammogram Completed 03/10/2015 604044788 Bone Mineral Density Test Completed 03/06/2014 56782 ECHO Transthoracic, Real-Time 2D With Doppler And Completed Color Flow 06/27/2013 [id number] Mammogram Completed 06/26/2012 391431673 Bone Mineral Density Test Completed 06/26/2012 01117413 Mammogram Completed 06/21/2011 [id number] Mammogram Completed 06/07/2011 03385 Stress Test Supervsn W/Out I/R Completed 06/07/2011 93888 Treadmill Interp/Report Only Completed 05/17/2011 48208 EKG Tracing & Interpretation Completed 05/17/2011 01347 Noninvasive Ear Or Pulse Oximetry For Oxygen Completed Saturation 05/06/2011 54749 ECHO Transthoracic, Real-Time 2D With Doppler And Completed Color Flow 05/11/2010 [id number] Mammogram Completed 05/07/2009 144372026 Bone Mineral Density Test Completed 09/22/2008 88097 EKG Tracing & Interpretation Completed 04/23/2008 70381 EKG Tracing & Interpretation Completed 04/23/2008 04868 EKG Tracing & Interpretation Completed 10/31/2000 [id number] Colonoscopy Completed Encounters Type Date Location Provider Dx Diagnosis Office Visit 01/31/2019 [facility] Internal Stephanie Z01.818 Encounter for other 8:40a Medicine - Era Maier M.D. preprocedural examination I10 Essential (primary) hypertension M16.12 Unilateral primary osteoarthritis, left hip L98.9 Disorder of the skin and subcutaneous tissue, unspecified Office Visit 2019 Melody Palomares Z01.810 Encounter for 3:00p Cardiology Of DO Abelardo preprocedural [facility] FAC cardiovascular examination I35.0 Nonrheumatic aortic (valve) stenosis I10 Essential (primary) hypertension I63.9 Cerebral infarction, unspecified M16.12 Unilateral primary osteoarthritis, left hip Office Visit 12/05/2018 10:30a [facility] Swati Mckeon, M25.552 Pain in left Of C.M.A. M.D. hip M16.12 Unilateral primary osteoarthritis, left hip Office Visit 11/12/2018 DoNotUse [facility] Internal Stephanie I10 Essential 2:40p Maikel Maier M.D. (primary) hypertension M25.552 Pain in left hip I35.0 Nonrheumatic aortic (valve) stenosis Office Visit 09/10/2018 1:30p [facility] Swati Mike, M25.552 Pain in left Of C.M.A. M.D. hip M16.12 Unilateral primary osteoarthritis, left hip Office Visit 08/23/2018 9:00a [facility] Internal Stephaniecezar Maier, M25.552 Pain in left Medicine - Era M.DCuauhtemoc hip I10 Essential (primary) hypertension Office Visit 05/15/2018 3:00p [facility] Internal Stephanie Z00.00 Encntr for Sukhwinder Maier M.D. general adult medical exam w/o abnormal findings M54.9 Dorsalgia, unspecified Office Visit 03/13/2018 10:20a [facility] Dermatology Dirk Du MD L72.0 Epidermal cyst L82.1 Other seborrheic keratosis Z08 Encntr for follow-up exam after trtmt for malignant neoplasm Z85.828 Personal history of other malignant neoplasm of skin Office Visit 01/09/2018 9:40a [facility] Internal Stephanie M54.9 Dorsalgia, Sukhwinder Maier M.D. unspecified [facility]ob M25.552 Pain in left hip I10 Essential (primary) hypertension E78.5 Hyperlipidemia, unspecified Office Visit 11/09/2017 10:20a [facility] Internal Stephanie I10 Essential ( primary) [facility] Acute upper respiratory infection, unspecified I34.0 Nonrheumatic mitral (valve) insufficiency Office Visit 05/30/2017 10:30a [facility] Dermatology Dirk Du L82.1 Other seborrheic MD keratosis I78.8 Other diseases of capillaries R60.0 Localized edema B07.0 Plantar wart Z78.9 Other specified health status R20.8 Other disturbances of skin sensation S90.921A Unspecified superficial injury of right foot, init encntr Office Visit 02/23/2017 10:00a [facility] Internal Stephanie I10 Essential ( primary) Medicine Shaquille Maier M.D. hypertension Ccmob K62.5 Hemorrhage of anus and rectum R35.0 Frequency of micturition K64.4 Residual hemorrhoidal skin tags Office Visit 08/25/2016 10:00a [facility] Internal Stephanie I10 Essential ( primary) Medicine Shaquille Maier M.D. hypertension Ccmob D23.9 Other benign neoplasm of skin, unspecified G47.00 Insomnia, unspecified Office Visit 07/04/2016 10:40a [facility] Internal Chris Pereyra NP J01.00 [facility], [facility] Office Visit 03/16/2016 4:20p [facility] Internal Starr Tian, J01.00 [facility], unspecified Office Visit 02/29/2016 4:20p [facility] Internal Starr Tian, J01.00 [facility], unspecified Office Visit 12/14/2015 2:00p Orthopedic Swati Mckeon, M16.11 Unilateral Services Of M.D. primary C.M.A. osteoarthritis, right hip M17.0 Bilateral primary osteoarthritis of knee M25.462 Effusion, left knee M25.562 Pain in left knee M25.461 Effusion, right knee M25.561 Pain in right knee M54.5 Low back pain Office Visit 12/07/2015 2:20p [facility] Internal Stephanie Maier, M25.562 Pain in left Medicine - Ccmob M.D. knee M25.561 Pain in right knee M25.551 Pain in right hip Office Visit 09/01/2015 9:40a [facility] Internal Stephanie M85.9 Disorder of bone Medicine Shaquille Maier M.D. density and Ccmob structure, unspecified R06.02 Shortness of breath K21.9 Gastro-esophageal reflux disease without esophagitis E78.5 Hyperlipidemia, unspecified Office Visit 08/24/2015 10:20a [facility] Internal Chris Pereyra, R06.02 Shortness of Medicine - [facility] [employer] breath R07.9 Chest pain, unspecified R14.2 Eructation Office Visit 01/29/2015 10:00a [facility] Internal Chrisjacque Pereyra, PL[employer] CLERK 784.91 Postnasal Drip Medicine - [facility] 466.0 Bronchitis Acute 786.2 Cough Office 01/15/2015 [facility] Internal Chrisjacque Pereyra, PLANT CLERK 466.0 Bronchitis Acute Visit 9:00a Medicine - C[facility]ob Office 11/05/2014 [facility] Internal Starr Tian, 788.43 Nocturia Visit 1:00p Medicine - N.P. [facility]ob Office 07/22/2014 [facility] Internal Stephanie 272.0 Hypercholesterolemia Pure Visit 10:00a Sukhwinder Maier M.D. Ccmob 719.44 Pain Joint Hand 424.0 Mitral Valve Disorder Office Visit 02/19/2014 1:00p [facility] Internal Stephanie V70.0 Examination Sukhwinder Maier M.D. General Medical [facility] Routine AT [facility] 401.1 Hypertension Benign 272.0 Hypercholesterolemia Pure 437.8 Cerebrovascular Disease Other 424.1 Aortic Valve Disorder Office Visit 2014 11:40a [facility] Internal Starr Tian, 724.5 Backache Unspec Medicine - N.P. Ccmob Office Visit 06/20/2013 1:00p [facility] Internal Stephanie 401.1 Dotty Maier M.D. Benign Ccmob 780.52 Insomnia Unspecified V04.81 Need For Prophylactic Vaccination & Inoculation/Influenza Office Visit 03/28/2013 4:20p [facility] Internal Grecia Ayleen, 789.04 Pain Abdominal Sukhwinder Corbin M.D., FACP Left Lower Ccmob Quadrant Office Visit 12/20/2012 2:40p [facility] Internal Stephanie V70.0 Examination Sukhwinder Maier M.D. General Medical Ccmob Routine AT [facility] 272.0 Hypercholesterolemia Pure 401.1 Hypertension Benign V76.10 Screening For Malignant Neoplasm Breast Office Visit 08/02/2012 9:30a [facility] Internal Nurse Visit A 401.1 Hypertension Medicine - Benign Ccmob Office Visit 06/19/2012 10:00a [facility] Internal Stephanie 401.1 Hypertension Sukhwinder Maier M.D. Benign Ccmob 782.0 Skin Sensation Disturbance 272.0 Hypercholesterolemia Pure Office Visit 12/20/2011 10:20a [facility] Internal Stephanie V70.0 Examination Sukhwinder Maier M.D. General Medical Ccmob Routine AT [facility] 272.0 Hypercholesterolemia Pure 724.2 Lumbago V76.10 Screening For Malignant Neoplasm Breast V82.81 Special Screening For Osteoporosis V12.50 History Personal Circulatory Diseases Unspec Office Visit 10/11/2011 11:20a [employer] [facility] [facility] Stephanie 729.5 Pain In Limb Medicine - Era Maier M.D. Office Visit 06/07/2011 10:30a [facility] Guy Oliva 786.50 Pain Chest Katie [...] Other Office Visit 11/03/2009 DO Not Use Joanna, 465.9 URI Upper 2:45p Franny Medel M.D. Respiratory Infections Acute Unspec Sites 786.2 Cough 401.1 Hypertension Benign Office Visit 07/22/2009 DO Not Use Starr Tian, 466.0 Bronchitis Acute 2:45p Cinthia-[facility] N.P. Office Visit 04/27/2009 DO Not Use Radtiffanymaria luz, V70.0 Examination 2:30p Franny Medel M.D. General Medical Routine AT [facility] Care Facility 729.5 Pain In Limb 401.1 Hypertension Benign 272.0 Hypercholesterolemia Pure 443.9 Peripheral Vascular Disease Unspec V04.81 Need For Prophylactic Vaccination & Inoculation/Influenza Office Visit 01/28/2009 DO Not Use Starr Tian, 727.43 Ganglion Unspec 4:15p Cinthia-Elma N.P. Office Visit 11/20/2008 DO Not Use [...] Pure Office Visit 03/30/2006 DO Not Use Joanna, V72.31 Routine [employer] 2:15p Franny Medel M.D. Examination Plan of Treatment Future Appointment(s):02/25/2019 10:00 am - Swati Mckeon M.D. at [facility]..05/20/2019 3:00 pm - Stephanie Maier M.D. at [facility] Internal Medicine - [facility]01/31/2019 - Stephanie Maier M.D.Z01.818 Encounter for other preprocedural examinationComments:Stop the aspirin as per instructions from Dr. Meneses not take ibuprofen, Motrin, Advil, Aleve, naproxen. Tylenol is OKTake your diltiazem with a sip of water on the morning of anctrmwH77 Essential ( primary) hypertensionComments:Your blood pressure is fine. Continue the same fqulqvblohM85.12 Unilateral primary osteoarthritis, left hipL98.9 Disorder of the skin and subcutaneous tissue, unspecifiedReferral:Dirk Du MD, Dermatology
--- OUTSIDE RECORDS SUMMARY | 2019-02-24 04:40 | XMS REPORT | Continuity of Care Document ---
:1930 External Reference #:[id number] Author Name Francisca William Care Team Providers Name Role Phone Stephanie Maier MD Primary Care Physician Unavailable Payers Date Identification Numbers Payment Provider Subscriber Effective: 2012 Policy Number: [id number] Medicare Blue Ppo Tiarra Sterling Group Number: [id number] [address] [address] PayID: [id number] [place] [address] Expires: 2012 Policy Number: [id number] Medicare Blue Ppo Tiarra Sterling Group Number: MEDICARE BLUE PPO [address] [address] Group Name: Plan Two [place] [address] PayID: [id number] Problems Active Problems Provider Date [...] With Alone Drives without problems. Worked at [employer] in 2009. 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 120mg Caps daily ER 24HR Crestor Take One Tablet 90tabs Stephanie Maier, 01/01/2012 40mg Tablets By Mouth Once M.D. Daily Aspirin 1 by mouth once Stephanie Maier, 04/29/[address] daily M.DCuauhtemoc Tubersol Unknown Rosuvastatin Calcium Unknown Preservision Areds Unknown Percocet Unknown Milk Of Magnesia Unknown Metamucil Unknown Glycerin (Adult) Unknown One Daily For Women 1 po qd Unknown Tablets Travatan each eye nightly Unknown 0.004% Solution History Medications Tramadol HCL 1-2 tablets 42tabs M54.9 Stephanie 05/15/2018 - 50mg every 6 hours as Katie Maier 09/09/2018 Tablets needed Doxycycline Hyclate one tablet twice 20caps J01.00 [...] 500mg for 10 days N.P. 03/26/2016 Tablets Azithromycin two tabs day 6tabs J01.00 Starr Tian, 02/29/2016 - 250mg one, one daily N.P. 03/05/2016 Tablets till gone Fluticasone 2 sprays each 16units J01.00 Starr Tian, 02/29/2016 - Propionate nostril daily as N.P. 03/15/2016 50mcg/Act needed Suspension Meloxicam 1 by mouth every 60tabs M16.11 Swati Mckeon, 12/14/2015 - 15mg day M.D. 02/23/2017 Tablets Lorazepam 1-2 tabs by 5tabs Stephanie 09/08/2015 - 0.5mg mouth prior to Katie Maier 12/13/2015 Tablets procedure [...] One po q 4 hours 30caps Starr Tian, 2014 - 4mg prn N.P. 02/04/2014 Capsules Zolpidem Tartrate 1/2-1 po tablet 30tabs 780.52 Stephanie 06/20/2013 - 5mg at bedtime as Katie Maier 2014 Tablets needed Zostavax 1 dose s/c 1units Stephanie 03/28/2012 - Solution Katie Maier 06/18/2012 Rec Diltiazem HCL ER Take One Capsule 30caps 786.05 [facility] 02/13/2012 - By Mouth Once Katie Maier 06/19/2012 180mg Caps ER 24HR Daily Atorvastatin Calcium 1 po qd 90tabs [facility] 09/21/2011 - Katie Maier 01/01/2012 40mg Tablets Diltiazem CD 1 PO qd 30caps 786.05 [facility] 05/17/2011 - 180mg Katie Maier 02/13/2012 Caps ER 24HR Caltrate 600+D 1 by mouth once Stephanie 04/29/2010 - daily Katie Maier 02/21/2019 [id number]-Eypm Tablets Proctosol HC Use as directed 28.350gm Stephanie 03/01/2010 - 2.5% prn Katie Maier 02/21/2019 Cream Lisinopril 1 tablet once 30tabs 786.05 Stephanie - 10mg daily Katie Maier 05/17/2011 Tablets Cipro 1 tablet twice a 20tabs Unknown - 500mg Tablets day 10/28/2010 Crestor Take One Tablet 30tabs Stephanie - 40mg Tablets By Mouth AT Katie Maier 09/21/2011 Bedtime Aleve 1 po prn 60caps Unknown - 220mg Capsules 06/19/2012 Eye Vitamins daily Unknown - 02/21/2019 Capsules Flonase Allergy 2 sprays each Unknown - Relief nostril once 08/24/2015 50mcg/Act daily Suspension Eylea prn Unknown - 2mg/0.05ML 02/21/2019 Solution Tylenol 8 Hour 1 tab every 6 Unknown - 650mg hours as needed 02/21/2019 Tablets ER for pain Eq Fiber Therapy 2 in in the Unknown - morning 02/21/2019 500mg Tablets Medications Administered in Office Medication SIG Qnty Indications Ordering Provider Date Depomedrol 40MG Swati Mckeon M.D. 11/19/2018 Injection Inj, Regadenoson, 0.1 MG Deshawn Zhou, DO [facility] 09/11/2015 Injection Inj, Regadenoson, 0.1 MG RIGO Hooker 09/11/2015 Injection Technetium TC 99M Deshawn Zhou, DO [facility] 09/11/2015 Tetrofosmin, Per Unit Dose Up To 40 Millicuries Injection Technetium TC 99M RIGO Hooker 09/11/2015 Tetrofosmin, Per Unit Dose Up To 40 Millicuries Injection Immunizations CPT Code Status Date Vaccine Lot # [id number] Given 06/05/2018 Influenza Virus Vaccine, Quadrivalent, Split, Preservative Free 96406 Given 05/11/2017 Influenza Virus Vaccine, Quadrivalent, Split, [id number] Preservative Free 10204 Given 06/17/2016 Influ Virus Vaccine, Quadrivalent, Split Virus, [id number] [address] Given 06/13/2015 Influenza Virus Vaccine, Quadrivalent, Split, [id number] Preservative Free 42708 Given 02/24/2015 Pneumococcal Conjugate Vaccine 13 Valent For [id number] Intramuscular Use 79899 Given 06/17/2014 Influenza Virus Vaccine, Quadrivalent, Split, [id number] Preservative Free 94060 Given 06/20/2013 Flu Vaccine Split Virus Preservative Free For [id number] Indiv 3Yr Older [id number] Given 05/30/2012 Fluzone Vaccine 94219 Given 03/29/2012 Zoster (Zostavax) [id number] Given 05/17/2011 Afluria Vaccine [id number] 02039 Given 07/09/2010 Influenza Virus 3Yrs & Over [id number] 65316 Given 04/27/2009 Influenza Virus 3Yrs & Over 38379 Given 06/25/2008 Influenza Virus 3Yrs & Over 88820 Given 06/25/2008 Influenza Virus 3Yrs & Over 71534 Given 06/28/2007 Influenza Virus 3Yrs & Over Vital Signs Date Vital Result Comment 02/22/2019 8:05am Height 63 inches 5'3" Weight 144.00 lb BP Systolic 120 mmHg BP Diastolic 64 mmHg Body Temperature 98.2 F BMI (Body Mass Index) 25.5 kg/m2 01/31/2019 8:40am Height 63 inches 5'3" Weight [...] Result H/L Range Note Urinalysis Profile 01/30/2019 [facility] Urine Color Yellow [address] [place] [address] [phone] Urine Appearance Cloudy Urine Specific [place] 1.013 N 1.010-1.030 Urine pH 7.0 N [...] Present Abnormal Absent CBC Auto Diff 01/30/2019 [facility] White Blood 6.9 10^3/uL N 3.5-10.[address] [place] [address] [phone] Red Blood Count 4.12 10^6/uL N 3.70-4.87 [...] Red Blood Cells % 0.0 Inr/Protime 01/30/2019 [facility] Inr 0.93 N 0.82-1.[address] [place] [address] [phone] Laboratory test 01/30/2019 [facility] Partial 32.6 seconds N 26.0-38.[address] [place] [address] PTT [phone] Type & Screen 01/30/2019 [facility] Patient A Positive [address] [place] [address] [phone] Antibody Screen NEGATIVE Urine Culture And 01/30/2019 [facility] Urine Culture SEE RESULT [address] [place] [address] [phone] Lipid Profile 01/15/2019 [facility] Triglycerides 132 mg/dL 4 (Trig/Chol/HDL) [address] [place] [address] [phone] Cholesterol 143 mg/dL 5 HDL Cholesterol 46.8 mg/dL 6 LDL Cholesterol 70 mg/dL 7 Comp Metabolic Panel 01/15/2019 [facility] Sodium 141 mmol/L N 135-[address] [place] [address] [phone] Potassium 4.1 mmol/L N 3.5-5.0 Chloride 105 [...] >60 Egfr 102.3 >60 8 Xray 11/19/2018 [facility] Inj/Aspir Major <pending> JT Or Bursa W/ US Comp Metabolic 01/09/2018 [facility] Sodium 139 mmol/L N 139- 145 Panel [address] [place] [address] [phone] Potassium 4.5 mmol/L N 3.5-5.0 Chloride 105 [...] Egfr 112.9 >60 9 Lipid Profile 01/09/2018 [facility] Triglycerides 169 mg/dL 10 (Trig/Chol/HDL) [address] [place] [address] [phone] Cholesterol 140 mg/dL 11 HDL Cholesterol 42.0 mg/dL 12 LDL Cholesterol 64 mg/dL 13 Laboratory test 01/09/2018 [facility] Erythrocyte Sed 15 mm/Hr N 0-[address] [place] [address] [phone] Protein 01/09/2018 [facility] Total 6.7 g/dL 6.3 - Electrophoresis [address] Protein(Pep) 7.9 [place] [address] [phone] Albumin 3.2 g/dL Abnormal 3.4-4.7 Alpha-1 Globulin 0.2 g/dL 0.1-0.3 Alpha-2 Globulin 1.2 g/dL Abnormal 0.6-1.0 Beta Globulin 1.2 g/dL 0.7-1.2 Gamma Globulin 0.9 g/dL 0.6-1.6 Albumin/Globulin Ratio 0.93 Impression See Comment 14 CBC Auto Diff 01/09/2018 [facility] White Blood 8.2 10^3/uL N 3.5-10.[address] [place] [address] [phone] Red Blood Count 4.11 10^6/uL N 4.0-5.4 [...] Blood Cells % 0 Lipid Profile 02/28/2017 [facility] Triglycerides 159 mg/dL N 15 (Trig/Chol/HDL) [address] [place] [address] [phone] Cholesterol 140 mg/dL N 16 HDL Cholesterol 39.3 mg/dL N 17 LDL Cholesterol 69 mg/dL N 18 Comp Metabolic Panel 02/28/2017 [facility] Sodium 138 mmol/L N 133-[address] [place] [address] [phone] Potassium 4.1 mmol/L N 3.5-5.0 Chloride 107 [...] N >60 19 CBC Auto Diff 02/28/2017 [facility] White Blood 7.1 10^3/uL N 3.5-10.[address] [place] [address] [phone] Red Blood Count 4.19 10^6/uL N 4.0-5.4 [...] 0 N Urine Culture And 02/23/2017 [facility] Urine Culture SEE RESULT [address] [place] [address] [phone] Ua Routine 02/23/2017 [facility] Ua Specific 1.005 [place] Ua PH 8 Ua Color yellow Ua Appera clear Ua WBC trace Ua Protein neg Ua Glucose neg Ua Ketones neg Ua Bilirubin neg Ua Urobilinogen neg Ua Nitrite neg Ua Occult Blood neg Lipid Profile 08/18/2016 [facility] Triglycerides 137 mg/dL N 21 (Trig/Chol/HDL) [address] [place] [address] [phone] Cholesterol 147 mg/dL N 22 HDL Cholesterol 48.2 mg/dL N 23 LDL Cholesterol 71 mg/dL N 24 Comp Metabolic Panel 08/18/2016 [facility] Sodium 140 mmol/L N 133-[address] [place] [address] [phone] Potassium 4.2 mmol/L N 3.5-5.0 Chloride 105 [...] N >60 25 Comp Metabolic Panel 08/25/2015 [facility] Sodium 140 mmol/L N 133-145 [address] [place] [address] [phone] Potassium 4.1 mmol/L N 3.5-5.0 Chloride 105 [...] 99.0 N >60 26 Lipid Profile 08/25/2015 [facility] Triglycerides 149 mg/dL N 27 (Trig/Chol/HDL) [address] [place] [address] [phone] Cholesterol 157 mg/dL N 28 HDL Cholesterol 47.7 mg/dL N 29 LDL Cholesterol 80 mg/dL N 30 CKMB 08/25/2015 [facility] CKMB ng/mL 1.7 ng/mL N 0.6-6.[address] [place] [address] [phone] Laboratory test 08/25/2015 [facility] Troponin-I 0.00 ng/mL N <0.03 31 finding 101 (TnI) [place] [address] [phone] CBC Auto Diff 08/25/2015 [facility] White Blood 6.5 10^3/uL N 3.5-10.[address] [place] [address] [phone] Red Blood Count 4.28 10^6/uL N 4.0-5.4 [...] % 0 N Laboratory test 08/25/2015 [facility] B-Type Natriuretic 74 pg/ mL N [address] [place] [address] [phone] Lipid Profile 07/30/2014 [facility] Triglycerides 202 mg/dL N 33, 34 (Trig/Chol/HDL) [address] [place] [address] [phone] Cholesterol 152 mg/dL N 35 HDL Cholesterol 44.5 mg/dL N 36 LDL Cholesterol 67 mg/dL N 37 Comp Metabolic Panel 07/30/2014 [facility] Sodium 139 mmol/L N 133-[address] [place] [address] [phone] Potassium 4.2 mmol/L N 3.5-5.0 38 Chloride [...] Egfr 109.7 N >60 39 Throat-Beta 01/14/2014 [facility] Throat Beta Strep (SEE 40 , [address] Culture NOTE) [place] [address] [phone] Surgical 12/23/2013 [facility] S RUN DATE: [address] 12/24/ [place] [address] <SEE [phone] NOTE> Surgical 12/17/2013 [facility] S RUN DATE: [address] 12/17/ [place] [address] <SEE [phone] NOTE> Lipid Profile 06/13/2013 [facility] Triglycerides 155 mg/dL 40-2 (Trig/Chol/HDL) [address] 00 [place] [address] [phone] Cholesterol 149 mg/dL Less than 200 HDL Cholesterol 47 mg/dL 40-60 44 Cholesterol/HDL Ratio 3.2 Average 1-4.44 LDL Cholesterol 71.0 Less Than 100 45 Comp Metabolic Panel 06/13/2013 [facility] Sodium 140 mmol/L 133-[address] [place] [address] [phone] Potassium 4.1 mmol/L 3.5-5.0 Chloride 107 mmol/L [...] Egfr 122.8 >60 46 CBC W/Electronic 04/01/2013 [facility] White Blood 6.9 10^3/uL 4.8-10.[address] [place] [address] [phone] Red Blood Count 4.12 10^6/uL 4.0-5.4 Hemoglobin [...] Cells % 0 CMP Panel 04/01/2013 [facility] Sodium 141 mmol/L 133-[address] [place] [address] [phone] Potassium 4.0 mmol/L 3.5-5.0 Chloride 107 mmol/L [...] Egfr 102.8 >60 47 Ua Routine 03/28/2013 [facility] Ua Specific [place] 1.005 Ua PH 5.0 Ua Color neg Ua Appera neg Ua WBC neg Ua Protein neg Ua Glucose neg Ua Ketones neg Ua Bilirubin neg Ua Urobilinogen neg Ua Nitrite neg Ua Occult Blood neg Laboratory test finding 06/26/2012 [facility] Alt 26 U/L 14- 54 48 [address] [place] [address] [phone] Ast 25 U/L 12-42 49 TSH (Thyroid Stimulating Horm) 2.57 MIU/ML 0.34-5.60 50 Vitamin B12 336 pg/mL 180-914 51 Lipid Profile 06/26/2012 [facility] Triglycerides 95 mg/dL 40 -200 (Trig/Chol/HDL) [address] [place] [address] [phone] Cholesterol 157 mg/dL Less than 200 52 HDL Cholesterol 57 mg/dL 40-60 53 Cholesterol/HDL Ratio 2.8 AVERAGE 1-4.44 LDL Cholesterol 81.0 mg/dL Less Than 100 Comp Metabolic Panel 12/27/2011 [facility] Sodium 140 mmol/L 135-145 [address] [place] [address] [phone] Potassium 4.1 mmol/L 3.5-5.0 Chloride 105 mmol/L [...] 88.5 > 60 56 Lipid Profile 12/27/2011 [facility] Triglyceride 137 mg/dL 40 -200 (Trig/Chol/HDL) [address] [place] [address] [phone] Cholesterol 184 mg/dL Less Than 200 57 High Density Lipoprotein 50 mg/dL 40-60 58 Cholesterol/HDL Ratio 3.68 AVERAGE 1-4.44 Low Density Lipoprotein 107 mg/dL High Less Than 100 59 Lipid Profile 05/17/2011 [facility] Triglyceride 92 mg/dL 40- 200 (Trig/Chol/HDL) [address] [place] [address] [phone] Cholesterol 156 mg/dL Less Than 200 60 High Density Lipoprotein 46 mg/dL 40-60 61 Cholesterol/HDL Ratio 3.39 AVERAGE 1-4.44 Low Density Lipoprotein 92 mg/dL Less Than 100 62 Comp Metabolic Panel 05/17/2011 [facility] Sodium 142 mmol/L 135-145 [address] [place] [address] [phone] Potassium 4.6 mmol/L 3.5-5.0 Chloride 107 mmol/L [...] 103.3 > 60 65 Manual Differential 09/09/2010 [facility] Polysegmented 82 % 38-[address] [place] [address] [phone] Band Neutrophil 4 % 0-8 Lymphocyte 11 % Low 25-47 Monocyte 3 % 0-13 Absolute Neutrophil Count 9.9 RBC Morphology NORMAL CBC With 09/09/2010 [facility] White Blood 11.6 CUMM High 4.8- 10.8 Electronic Diff [address] [place] [address] [phone] Red Cell Count 3.99 CUMM Low 4.2-5.4 Hemoglobin 12.9 g/dL 12.0-16.0 Hematocrit 38 % 35-47 Mean Corpuscular Volume 95 um3 79-97 Mean Corpuscular Hemoglob 32 pg High 27-31 Mean Corpuscular HGB Cone 34 g/dL 32-36 Redcell Distribution WDTH 14 % 10.5-15 Platelet Count 259 CUMM 150-450 Mean Platelet Volume 8.4 um3 7.4-10.4 66 Comp Metabolic Panel 09/09/2010 [facility] Sodium 137 mmol/L 135-[address] [place] [address] [phone] Potassium 4.4 mmol/L 3.5-5.0 Chloride 101 mmol/L [...] > 60 69 Urine Culture & 09/01/2010 [facility] Urine Culture NG [address] [place] [address] [phone] Laboratory test 09/01/2010 [facility] Amylase 48 U/L 20-120 71 finding [address] [place] [address] [phone] Lipase 18 U/L Low 22-51 C Reactive Protein 2.3 mg/dL High Less Than 0.5 Laboratory test 09/01/2010 [facility] Stool For NEGATIVE Negative finding [address] [place] [address] [phone] CBC With 09/01/2010 [facility] White Blood 6.6 CUMM 4.8-10.8 Electronic Diff [address] [place] [address] [phone] Red Cell Count 4.11 CUMM Low 4.2-5.4 [...] Basophils 0 0-0.2 72 Urinalysis W/Microscopic 09/01/2010 [facility] Ua Color YELLOW Yellow [address] [place] [address] [phone] Appearance-Urine CLEAR Clear Specific [place]-Ur 1.027 1.010-1.030 Esterase-Urine 1+ Abnormal Negative Nitrite NEGATIVE Negative [id number]-[id number] NEGATIVE Negative Protein-Urine TRACE Abnormal Negative PH-Urine 5.5 5-9 Blood-Urine TRACE Abnormal Negative Ketones-Urine NEGATIVE Negative Bilirubin-Ur NEGATIVE Negative Glucose-Urine NEGATIVE Negative WBC-Urine 5-10 Abnormal 0-5 RBC-Urine 0-2 0-2 Mucus Urine MODERATE None Epith Cells-Ur FEW None Comp Metabolic Panel 09/01/2010 [facility] Sodium 137 mmol/L 135-145 [address] [place] [address] [phone] Potassium 4.3 mmol/L 3.5-5.0 Chloride 106 mmol/L [...] > 60 75 Comp Metabolic Panel 05/05/2010 [facility] Sodium 141 mmol/L 135-145 [address] [place] [address] [phone] Potassium 4.1 mmol/L 3.5-5.0 Chloride 106 mmol/L [...] 103.5 > 60 80 Lipid Profile 05/05/2010 [facility] Triglyceride 182 mg/dL 40 -200 (Trig/Chol/HDL) [address] [place] [address] [phone] Cholesterol 156 mg/dL Less Than 200 81 [...] [address]: Swati Mckeon MD Acct: [id number] Unit: [id number] AGE: 89 Location: [facility] Re01/30/19 SEX: F Status: REG REF SPEC: [id number] TAMERA: 01/30/191140 [facility] DR: Swati Mckeon MD REQ: [id number] RECD: 01/30/19 STATUS: COMP _ SOURCE: URINE SPDESC: ORDERED: Urine Culture QUERIES: Urine Source: Clean Catch Procedure Result Reported Site Urine Culture Final 01/31/19- 1213 ML No Growth (<1,000 CFU/mL) * ML - Main Lab . END OF REPORT DEPARTMENT OF PATHOLOGY, [address] [place] [address] Reuben Contreras M.D. Director [facility] # [id number] 4 Desirable: <150 Borderline High: 150-199 High: [...] protein on serum electrophoresis. Test Performed by: [address] [address] 15 Desirable <150 Borderline high 150-199 High [...] [address]: Stephanie Maier MD Acct: [id number] Unit: [id number] AGE: 87 Location: [facility] Re02/23/17 SEX: F Status: REG REF SPEC: [id number] TAMERA: 02/23/17-[address]: Stephanie Maier MD REQ: [id number] RECD: 02/23/17 STATUS: COMP _ SOURCE: URINE SPDESC: ORDERED: Urine Culture COMMENTS: [id number] Urine Source: Random Procedure Result Reported Site Urine Culture Final 02/24/17- 1605 ML No Growth (<1,000 CFU/mL) * ML - MAIN LAB ([facility]) . END OF REPORT * ML=Testing performed at Main Lab DEPARTMENT OF PATHOLOGY, [address] [place] [address] Reuben Contreras M.D. Director [facility] # [id number] 21 Desirable <150 Borderline high 150-199 High [...] 0.03 ng/mL Not supportive of diagnosis of UT 0.03 - 0.50 ng/mL Indeterminate: suggest serial studies if clinically indicated. Greater than 0.5 ng/mL Consistent with diagnosis of [place] 32 >100 to <200 pg/mL: likely compensated [...] by sarah saavedra 41 RUN DATE: 01/16/14 [facility] LAB LIVE PAGE 1 RUN TIME: 0900 [address] [place], [place] [address] Specimen Inquiry Name: TIARRA STERLING : [address]: Jann Rondon MD Acct: [id number] Unit: [id number] AGE: 83 Location: [facility] Re01/14/14 SEX: F Status: DEP ER SPEC: [id number] TAMERA: 01/14/14-1016 [facility] DR: Jann Rondon MD REQ: [id number] RECD: 01/14/14-1210 STATUS: FLORA VARGAS DR: Stephanie Maier MD _ SOURCE: THROAT SPDESC: ORDERED: Throat Beta Str COMMENTS: Comment: collected by sarah saavedra Procedure Result Verified Site Throat Beta Strep Culture Final 01/16/14- 0900 ML Negative For Group A Beta Streptococcus END OF REPORT * ML=Testing performed at Main Lab DEPARTMENT OF PATHOLOGY, [facility] [email or web address] [place], [place] [address] Reuben Contreras M.D. Director [facility] # [id number] 42 RUN DATE: 12/24/13 [facility] LAB LIVE PAGE 1 RUN TIME: 1357 [facility] [employer] [place], [place] [address] Specimen Inquiry Name: ASHERTIARRA R : [address]: Facundo Flaherty MD Acct: [id number] Unit: [id number] AGE: 83 Location: [place] Re12/23/13 SEX: F Status: REG SDC SPEC: [id number] TAMERA: 12/23/13- [facility] DR: Facundo Flaherty MD REQ: [id number] RECD: 12/23/13-1507 STATUS: JERAMY VARGAS DR: Stephanie Maier MD [...] performed at Main Lab DEPARTMENT OF PATHOLOGY, [address] [place] [address] Reuben Contreras M.D. Director [facility] Permit #[id number] 43 RUN DATE: 12/17/13 [facility] LAB LIVE PAGE 1 RUN TIME: 6320 [address] [facility], [place], [place] [address] Specimen Inquiry Name: TIARRA STERLING : [address]: Facundo Flaherty MD Acct: [id number] Unit: [id number] AGE: 83 Location: [facility] Re12/17/13 SEX: F Status: REG REF SPEC: [id number] TAMERA: 12/17/13- SUBM DR: Facundo Flaherty MD REQ: [id number] RECD: 12/17/131407 STATUS: JERAMY VARGAS DR: Stephanie Medina MD _ ORDERED: Consult w/slide FINAL DIAGNOSIS Skin, right nasolabial fold, shave biopsy: A. Basal cell carcinoma, nodular type. B. Basal cell carcinoma is broadly transected along the base of this shave biopsy. PRE-OPERATIVE DIAGNOSIS Basal cell carcinoma. GROSS DESCRIPTION Received is one glass slide labeled [id number], Tiarra Sterling [place] . Accompanying this slide is a pathology report labeled Stephanie Sterling, [id number] [place], [address] [place] [address], [address] [address] Brooke Lucero on October 31, 2013. Signed (signature on file) Reuben Contreras MD 1518 END OF REPORT * ML=Testing performed at Main Lab DEPARTMENT OF PATHOLOGY, [address] [place] [address] Reuben Contreras M.D. Director [facility] Permit #[id number] 44 HDL Interpretation: Undesirable: High Risk: Less [...] has been shown to interfere with the Jendrass[place] method for measuring total bilirubin. Samples from [...] has been shown to interfere with the [place]rass[place] method for measuring total bilirubin. Samples from [...] change was based on recommendations from the [place] [employer]. 78 Please note change in reference range effective 08 . 79 A metabolite of Naproxen, O-desmethylnaproxen, has been shown to interfere with the Jendrassik-[place] method for measuring total bilirubin. Samples from [...] 189 MG/DL Procedures Date Code Description Status 02/12/2019 37004 THR Total Hip Replacement Completed 02/12/2019 93810 THR Total Hip Replacement Completed 02/06/2019 [id number] Diabetic Retinal Eye Exam Completed 01/31/2019 67154 Destruction Of Benign Lesions Any Method 1-14 lesions Completed 2019 58776 EKG Tracing & Interpretation Completed 12/20/2018 21453 ECHO Transthoracic, Real-Time 2D With Doppler And Completed Color Flow 12/20/2018 95077 ECHO Transthoracic, Real-Time 2D With Doppler And Completed Color Flow 11/19/2018 26282 Inj/Aspir Major JT Or Bursa W/ US Completed 04/17/2018 [id number] Diabetic Retinal Eye Exam Completed 12/12/2017 04571 ECHO Transthoracic, Real-Time 2D With Doppler And Completed Color Flow 12/12/2017 46996 ECHO Transthoracic, Real-Time 2D With Doppler And Completed Color Flow 07/06/2017 60110 Destruction Of Benign Lesions Any Method 1-14 lesions Completed 05/30/2017 25125 Destruction Of Benign Lesions Any Method 1-14 lesions Completed 05/22/2017 [id number] Bone Mineral Density Test Completed 05/03/2017 [id number] Diabetic Retinal Eye Exam Completed 09/11/2015 41501 Stress Test Completed 09/11/2015 36144 Myocardial Perfusion Imaging Tomographic (Spect) Completed Multiple Studies 09/11/2015 08679 Myocardial Perfusion Imaging Tomographic (Spect) Completed Multiple Studies 08/24/2015 05352 EKG Tracing & Interpretation Completed 03/10/2015 [id number] Mammogram Completed 03/10/2015 [id number] Bone Mineral Density Test Completed 03/06/2014 29309 ECHO Transthoracic, Real-Time 2D With Doppler And Completed Color Flow 06/27/2013 [id number] Mammogram Completed 06/26/2012 [id number] Bone Mineral Density Test Completed 06/26/2012 [id number] Mammogram Completed 06/21/2011 [id number] Mammogram Completed 06/07/2011 91649 Stress Test Supervsn W/Out I/R Completed 06/07/2011 34452 Treadmill Interp/Report Only Completed 05/17/2011 02388 EKG Tracing & Interpretation Completed 05/17/2011 80150 Noninvasive Ear Or Pulse Oximetry For Oxygen Completed Saturation 05/06/2011 28030 ECHO Transthoracic, Real-Time 2D With Doppler And Completed Color Flow 05/11/2010 [id number] Mammogram Completed 05/07/2009 [id number] Bone Mineral Density Test Completed 09/22/2008 56926 EKG Tracing & Interpretation Completed 04/23/2008 80042 EKG Tracing & Interpretation Completed 04/23/2008 11409 EKG Tracing & Interpretation Completed 10/31/2000 [id number] Colonoscopy Completed Encounters Type Date Location Provider Dx Diagnosis Office Visit 01/31/2019 [facility] Internal Stephanie Z01.818 Encounter for other 8:40a Sukhwinder Maier M.D. preprocedural examination I10 Essential (primary) hypertension M16.12 Unilateral primary osteoarthritis, left hip L98.9 Disorder of the skin and subcutaneous tissue, unspecified Office Visit 2019 [facility] Z01.810 Encounter for 3:00p Cardiology Of Zhou, preprocedural [facility] cardiovascular examination I35.0 Nonrheumatic aortic (valve) stenosis I10 Essential (primary) hypertension I63.9 Cerebral infarction, unspecified M16.12 Unilateral primary osteoarthritis, left hip Office Visit 12/05/2018 10:30a [facility] Swati Mckeon, M25.552 Pain in left Of C.M.A. M.D. hip M16.12 Unilateral primary osteoarthritis, left hip Office Visit 11/12/2018 DoNotUse [facility] Internal Stephanie I10 Essential 2:40p Maikel Maier M.D. (primary) hypertension M25.552 Pain in left hip I35.0 Nonrheumatic aortic (valve) stenosis Office Visit 09/10/2018 1:30p [facility] Swati Mckeon, M25.552 Pain in left Of C.M.A. M.D. hip M16.12 Unilateral primary osteoarthritis, left hip Office Visit 08/23/2018 9:00a [facility] Martin Maier M25.552 Pain in left Sukhwinder Girard M.D. hip I10 Essential (primary) hypertension Office Visit 05/15/2018 3:00p [facility] Internal Stephanie Z00.00 Encntr for Sukhwinder Maier M.D. general adult medical exam w/o abnormal findings M54.9 Dorsalgia, unspecified Office Visit 03/13/2018 10:20a [facility] Dermatology Dirk Du MD L72.0 Epidermal cyst L82.1 Other seborrheic keratosis Z08 Encntr for follow-up exam after trtmt for malignant neoplasm Z85.828 Personal history of other malignant neoplasm of skin Office Visit 01/09/2018 9:40a [facility] Internal Stephanie M54.9 Dorsalgia, Sukhwinder Maier M.D. unspecified Ccmob M25.552 Pain in left hip I10 Essential (primary) hypertension E78.5 Hyperlipidemia, unspecified Office Visit 11/09/2017 10:20a [facility] Internal Stephanie I10 Essential ( primary) Sukhwinder Maier M.D. hypertension Ccmob J06.9 Acute upper respiratory infection, unspecified I34.0 Nonrheumatic mitral (valve) insufficiency Office Visit 05/30/2017 10:30a [facility] Dermatology Dirk Timmypallavizer, L82.1 Other seborrheic MD keratosis I78.8 Other diseases of capillaries R60.0 Localized edema B07.0 Plantar wart Z78.9 Other specified health status R20.8 Other disturbances of skin sensation S90.921A Unspecified superficial injury of right foot, init encntr Office Visit 02/23/2017 10:00a [facility] Internal Stephanie I10 Essential ( primary) Sukhwinder Maier M.D. hypertension Ccmob K62.5 Hemorrhage of anus and rectum R35.0 Frequency of micturition K64.4 Residual hemorrhoidal skin tags Office Visit 08/25/2016 10:00a [facility] Internal Stephanie I10 Essential ( primary) Sukhwinder Maier M.D. hypertension Ccmob D23.9 Other benign neoplasm of skin, unspecified G47.00 Insomnia, unspecified Office Visit 07/04/2016 10:40a [facility] Internal Chris Pereyra NP J01.00 Acute maxillary Medicine - Ccmob sinusitis, unspecified Office Visit 03/16/2016 4:20p [facility] Internal Starr Tian J01.00 Acute maxillary Medicine - Ccmob N.P. sinusitis, unspecified Office Visit 02/29/2016 4:20p [facility] Internal Starr Tian J01.00 Acute maxillary Medicine - Ccmob N.P. sinusitis, unspecified Office Visit 12/14/2015 2:00p Orthopedic Swati Mckeon, M16.11 Unilateral Services Of MMary primary C.M.A. osteoarthritis, right hip M17.0 Bilateral primary osteoarthritis of knee M25.462 Effusion, left knee M25.562 Pain in left knee M25.461 Effusion, right knee M25.561 Pain in right knee M54.5 Low back pain Office Visit 12/07/2015 2:20p [facility] Internal Stephanie Maier, M25.562 Pain in left Medicine - Era M.D. knee M25.561 Pain in right knee M25.551 Pain in right hip Office Visit 09/01/2015 9:40a [facility] Internal Stephanie M85.9 Disorder of bone Medicine Shaquille Maier M.D. density and Ccmob structure, unspecified R06.02 Shortness of breath K21.9 Gastro-esophageal reflux disease without esophagitis E78.5 Hyperlipidemia, unspecified Office Visit 08/24/2015 10:20a [facility] Internal Chris Roddy, R06.02 [facility] breath R07.9 Chest pain, unspecified R14.2 Eructation Office Visit 01/29/2015 10:00a [facility] Internal Chris Pereyra FISH PEDDLER 784.91 Postnasal Drip [facility] 466.0 Bronchitis Acute 786.2 Cough Office 01/15/2015 [facility] Internal Chris Pereyra FISH PEDDLER 466.0 Bronchitis Acute Visit 9:00a [facility] 11/05/2014 [facility] Internal Starr Tian, 788.43 Nocturia Visit 1:00p Medicine - N.P. Ccmob Office 07/22/2014 [facility] Internal Stephanie 272.0 Hypercholesterolemia Pure Visit 10:00a Sukhwinder Maier M.D. Ccmob 719.44 Pain Joint Hand 424.0 Mitral Valve Disorder Office Visit 02/19/2014 1:00p [facility] Internal Stephanie V70.0 Examination Sukhwinder Maier M.D. General Medical Ccmob Routine AT [facility] Care Facility 401.1 Hypertension Benign 272.0 Hypercholesterolemia Pure 437.8 Cerebrovascular Disease Other 424.1 Aortic Valve Disorder Office Visit 2014 11:40a [facility] Internal Starr Tian, 724.5 Backache Unspec Medicine - N.P. Ccmob Office Visit 06/20/2013 1:00p [facility] Internal Stephanie 401.1 Hypertension Sukhwinder Maier M.D. Benign Ccmob 780.52 Insomnia Unspecified V04.81 Need For Prophylactic Vaccination & Inoculation/Influenza Office Visit 03/28/2013 4:20p [facility] Internal Grecia Abbasi, 789.04 Pain Abdominal Sukhwinder Corbin M.D., FACP Left Lower Ccmob Quadrant Office Visit 12/20/2012 2:40p [facility] Internal Stephanie V70.0 Examination Medicine Shaquille Maier M.D. [facility] 272.0 Hypercholesterolemia Pure 401.1 Hypertension Benign V76.10 Screening For Malignant Neoplasm Breast Office Visit 08/02/2012 9:30a [facility] Internal Nurse Visit A 401.1 Hypertension Medicine - Benign Ccmob Office Visit 06/19/2012 10:00a [facility] Internal Stephanie 401.1 Hypertension Sukhwinder Maier M.D. Benign Ccmob 782.0 Skin Sensation Disturbance 272.0 Hypercholesterolemia Pure Office Visit 12/20/2011 10:20a [facility] Internal Stephanie V70.0 Examination Sukhwinder Maier M.D. General Medical Ccmob Routine AT [facility] 272.0 Hypercholesterolemia Pure 724.2 Lumbago V76.10 Screening For Malignant Neoplasm Breast V82.81 Special Screening For Osteoporosis V12.50 History Personal Circulatory Diseases Unspec Office Visit 10/11/2011 11:20a [facility] Internal Stephanie 729.5 Pain In Limb Medicine - Era Maier M.D. Office Visit 06/07/2011 10:30a [facility] Guy Oliva 786.50 Pain Chest Katie [...] Use Starr Tian, 680.8 Carbuncle & 11:00a [facility] N.P. Furuncle Spec Sites Other Office Visit [...] Office Visit 07/22/2009 DO Not Use Starr Vargiovanna, 466.0 Bronchitis Acute 2:45p [facility] N.P. Office Visit 04/27/2009 DO Not Use [place], V70.0 Examination 2:30p Franny Medel M.D. General Medical Routine AT [facility] Care Facility 729.5 Pain In Limb 401.1 Hypertension Benign 272.0 Hypercholesterolemia Pure 443.9 Peripheral Vascular Disease Unspec V04.81 Need For Prophylactic Vaccination & Inoculation/Influenza Office Visit 01/28/2009 DO Not Use Starr Varn, 727.43 Ganglion Unspec 4:15p [facility] N.P. 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 Examination Plan of Treatment Future Appointment(s):03/25/2019 1:15 pm - Swati Mckeon M.D. at [facility]/20/2019 3:00 pm - Stephanie Maier M.D. at [facility] - Swati Mckeon M.D.M25.552 Pain in left hipFollow up :Follow up: 4 zptdqY39.642 Presence of left artificial hip joint
[2019-02-24 05:03] LABS: ABS Basophils 0.1 10^3/ul (0-0.2); ABS Eosinophils 0.1 10^3/ul (0-0.6); ABS Lymphocytes 1.4 10^3/ul (1.0-4.8); ABS Monocytes 0.7 10^3/ul (0-0.8); ABS Neutrophils 9.3 10^3/ul (1.5-7.7); Eosinophil % 1.1 %; Hematocrit 29 % (35-47); Hemoglobin 9.6 g/dL (12.0-16.0); Lymphocyte % 12.1 %; Mean Corpuscular HGB Conc 33 g/dL (31-36); Mean Corpuscular Hemoglobin 31 pg (27-31); Mean Corpuscular Volume 93 fL (80-97); Mean Platelet Volume 6.9 fL (7.4-10.4); Platelet Count 430 10^3/uL (150-450); Red Blood Count 3.13 10^6 /uL (3.70-4.87); Red Cell Distribution Width 15 % (10-15); White Blood Count 11.7 10^3/uL (3.5-10.8)
[2019-02-24 05:13] LABS: C Reactive Protein 25.23 mg/L (<8.01); EGFR African American 113.9 (>60); EGFR Non-African American 94.1 (>60); Potassium 3.9 mmol/L (3.5-5.0)
--- NOTE | 2019-02-24 05:39 | ED ---
Lower Extremity - HPI Summary HPI Summary: This patient is a 89 year old F brought in by [facility] with a chief complaint of increased redness and swelling and pain for the past couple days around the incision of a left hip replacement performed at [facility] on 02/12/19. Patient states that she is allergic to tape and that the residential had used tape to keep the incision site covered. She saw Dr. Mckeon on 02/22/19 and was not prescribed abx at the time. Reports physical therapy is going well. Denies fever, generalized illness, and any other symptoms at this point. Pain rated 5/10 in severity. - History of Current Complaint Chief Complaint: EDSoftTissueLowExtr Stated Complaint: HIP PAIN PER EMS Time Seen by Provider: 02/24/19 04:34 Hx Obtained From: Patient Mechanism Of Injury: Other - tape Onset of Pain: Days Pain Intensity: 5 Pain Scale Used: 0-10 Numeric Timing: Constant Location: Is Discrete @ - left hip replacement incision Associated Signs And Symptoms: Positive: Swelling, Redness. Negative: Fever, Weakness - Allergies/Home Medications Allergies/Adverse Reactions: Allergies Allergy/AdvReac Type Severity Reaction Status Date / Time cephalexin [From Keflex] Allergy Unknown Verified 02/24/19 04:33 Reaction Details latex Allergy REDNESS, Verified 02/24/19 04:33 ITCHINESS lisinopril Allergy Shortness Verified 02/24/19 04:33 of Breath metaxalone Allergy DIZZY Verified 02/24/19 04:33 nylon Allergy Rash Verified 02/24/19 04:33 Penicillins Allergy Hives Verified 02/24/19 04:33 Sulfa (Sulfonamide Allergy See Comment Verified 02/24/19 04:33 Antibiotics) metal Allergy Intermediate REDNESS, Uncoded 02/12/19 10:36 ITCHINESS tape Allergy Mild Rash Uncoded 02/12/19 10:36 ELASTIC Allergy SKIN Uncoded 02/12/19 10:36 IRRITATION PMH/Surg Hx/FS Hx/Imm Hx Endocrine/Hematology History: Denies: Hx Diabetes, Hx Thyroid Disease Cardiovascular History: Reports: Hx Hypertension - ON MEDS, Hx Rheumatic Fever - 1950 Denies: Other Cardiovascular Problems/Disorders Respiratory History: Denies: Hx Asthma, Hx Chronic Obstructive Pulmonary Disease (COPD) GI History: Reports: Hx Gastroesophageal Reflux Disease - FIBER THERAPY HELPS Denies: Hx Ulcer, Other GI Disorders Musculoskeletal History: Reports: Hx Arthritis - BACK, LEFT HIP, Hx Bursitis - HX OF BILATERAL ARMS- NO PROBLEMS AT PRESENT, Hx Osteoporosis Denies: Hx Rheumatoid Arthritis, Hx Scoliosis Sensory History: Reports: Hx Cataracts, Hx Contacts or Glasses - GLASSES, Hx Glaucoma - BILATERAL Denies: Hx Hearing Aid Opthamlomology History: Reports: Hx Cataracts, Hx Contacts or Glasses - GLASSES , Hx Glaucoma - BILATERAL Neurological History: Denies: Hx Headaches, Other Neuro Impairments/Disorders - Cancer History Hx Chemotherapy: No Hx Radiation Therapy: No - Surgical History Surgery Procedure, Year, and Place: 1946 APPENDECTOMY, [facility]. 1968 HYSTERECTOMY, [facility]. CHOLECYSTECTOMY, [facility]. 2008 BILATERAL CATARACT EXTRACTION WITH IOL IMPLANTS, [facility]. 2011 LEFT SHOULDER ROTATOR CUFF REPAIR, [facility]. LASER SURGERY BILATERAL EYES. 2009 EXCISION RIGHT LITTLE FINGER MUCOUS CYST, [facility]. Growth removed from upper lip. 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 Hx Anesthesia Reactions: No Infectious Disease History: No Infectious Disease History: Denies: Hx Clostridium Difficile, Hx Hepatitis, Hx Human Immunodeficiency Virus (HIV), Hx of Known/Suspected MRSA, Hx Shingles, Hx Tuberculosis, Hx Known/ Suspected VRE, Hx Known/Suspected VRSA, History Other Infectious Disease, Traveled Outside the [place] in Last 30 Days - Family History Known Family History: Positive: Hypertension - Social History Alcohol Use: Rare Substance Use Type: Reports: None Smoking Status (MU): Never Smoked Tobacco Have You Smoked in the Last Year: No Review of Systems Negative: Fever, Fatigue Positive: Myalgia - at left hip incision Positive: Other - redness and swelling a left hip incision All Other Systems Reviewed And Are Negative: Yes Physical Exam - Summary Physical Exam Summary: Appearance: Well-appearing, Well-nourished, lying in bed comfortable Skin: Warm, dry, Surgical incision over left hip shows some mild diffuse erythema with no induration no fluctuant and no drainage Eyes: sclera anicteric, no conjunctival pallor ENT: mucous membranes moist Neck: deferred Respiratory: No signs of respiratory distress Cardiovascular: Appears well perfused, pulses are nml Abdomen: deferred Musculoskeletal: Moving all 4 extremities without obvious discomfort Mild diffuse tenderness to left hip surgical incision Neurological: Awake and alert, mentation is normal, speech is fluent and appropriate Psychiatric: affect is normal, does not appear anxious or depressed Triage Information Reviewed: Yes Vital Signs On Initial Exam: Initial Vitals Temp Pulse Resp BP Pulse Ox 98.3 F 84 18 156/76 97 02/24/19 04:29 02/24/19 04:29 02/24/19 04:29 02/24/19 04:29 02/24/19 04:29 Vital Signs Reviewed: Yes Diagnostics - Vital Signs Vital Signs Temp Pulse Resp BP Pulse Ox 02/24/19 04:29 98.3 F 84 18 156/76 97 - Laboratory Result Diagrams: 02/24/19 04:46 02/24/19 04:46 Lab Statement: Any lab studies that have been ordered have been reviewed, and results considered in the medical decision making process. Lower Extremity Course/Dx - Course Course Of Treatment: 89 year old F brought in by ambulance to [facility] from nursing facility with a chief complaint of increased redness and swelling and pain for the past couple days around the incision of a left hip replacement performed at [facility] on 02/12/19. Bloodwork obtained. Case discussed with Dr. Fleming , orthopedist, who agrees to come see patient in the ED. Patient will be signed out to Dr. Brumfield awaiting Dr. Fleming's evaluation. - Diagnoses Provider Diagnoses: Left hip pain - Physician Notifications Discussed Care Of Patient With: Jovanny Fleming - orthopedist Time Discussed With Above Provider: 06:30 Instructed by Provider To: Will See In ED Discharge - Sign-Out/Discharge Documenting (check all that apply): Sign-Out Patient Signing out patient TO: Gamaliel Brumfield - consult Patient Received Moderate/Deep Sedation with Procedure: No - Discharge Plan Condition: Stable Referrals: Stephanie Maier MD [Primary Care Provider] - - Attestation Statements Document Initiated by Scribe: Yes Documenting Scribe: Zoie Hauser Provider For Whom Scribe is Documenting (Include Credential): Ryley Marin MD Scribe Attestation: Zoie Prieto, scribed for Ryley Marin MD on 02/24/19 at 0630. Status of Scribe Document: Ready
--- NOTE | 2019-02-24 07:30 | ED ---
Progress - Progress Note Progress Note: This patient was signed out from Dr. Marin to Dr. Brumfield upon shift change at 07 :00 02/24/[address] Fleming. Hip/pelvis x-ray impression: Normally located LEFT total hip prosthesis. Negative for periprosthetic fracture or stigmata of component loosening. Negative for pelvic fracture or joint diastases. Interval decrease in soft tissue swelling about the LEFT hip. ED physician has reviewed this imaging report. Dr. Fleming recommends discharge with a prescription for Keflex. The patient is allergic to Keflex. She is also allergic to Bactrim so she will be discharged with a prescription for Clindamycin. I discussed results with patient, and she reports feeling better. She is hemodynamically stable and safe for discharge. Strict return precautions given and she will otherwise follow up with her PCP. Course/Dx - Course Course Of Treatment: This patient was signed out from Dr. Marin to Dr. Brumfield upon shift change at 07:00 02/24/[address] Fleming. Hip/ pelvis x-ray impression: Normally located LEFT total hip prosthesis. Negative for periprosthetic fracture or. stigmata of component loosening. Negative for pelvic fracture or joint diastases. Interval decrease in soft tissue swelling about the LEFT hip. ED physician has reviewed this imaging report. Dr. Fleming recommends discharge with a prescription for Keflex. The patient is allergic to Keflex. She is also allergic to Bactrim so she will be discharged with a prescription for Clindamycin. I discussed results with patient, and she reports feeling better. She is hemodynamically stable and safe for discharge. Strict return precautions given and she will otherwise follow up with her PCP. - Diagnoses Provider Diagnoses: Post-operative pain - Provider Notifications Discussed Care Of Patient With: Jovanny Fleming Time Discussed With Above Provider: 08:41 Instructed by Provider To: Other - recommends discharge with Keflex Discharge - Sign-Out/Discharge Documenting (check all that apply): Patient Departure - DC, Receiving Sign-Out Receiving patient FROM: Ryley Marin Patient Received Moderate/Deep Sedation with Procedure: No - Discharge Plan Condition: Stable Disposition: HOME Prescriptions: Clindamycin HCl 300 mg PO TID #21 capsule Patient Education Materials: Pain Management After Surgery (DC) Referrals: Stephanie Maier MD [Primary Care Provider] - (1-3 days) Additional Instructions: Follow up with your primary care physician in 1-3 days. RETURN TO THE EMERGENCY DEPARTMENT FOR CHANGING OR WORSENING SYMPTOMS. - Billing Disposition and Condition Condition: STABLE Disposition: Home - Attestation Statements Document Initiated by William: Yes Documenting Scribe: Jose Daniel Theodore Provider For Whom William is Documenting (Include Credential): Gamaliel Brumfield MD Scribe Attestation: Jose Daniel Prieto, scribed for Gamaliel Brumfield MD on 02/24/19 at 1802. Scribe Documentation Reviewed: Yes Provider Attestation: The documentation as recorded by the Jose Daniel hanna accurately reflects the service I personally performed and the decisions made by me, Cezar Brumfield MD Status of Scribe Document: Viewed
[2019-02-24 09:20] VITALS: BP 146/71
--- NOTE | 2019-02-24 10:05 | CONS ---
ORTHOPEDIC CONSULTATION: DATE OF CONSULT: 02/24/19 - EMERGENCY DEPT CHIEF COMPLAINT: Left hip. HISTORY OF PRESENT ILLNESS: Ms. Brady is an 89-year-old female who had undergone a left total hip arthroplasty with Dr. Mckeon on 02/12/19. She had done alright postoperatively, but was not safe to go home. Initially [facility] was consulted, but her insurance denied a stay with them and she ended up at the [facility]. She has been receiving physical therapy and did see Dr. Mckeon at the end of this past week. She presents today to the emergency room after the nurse at the [facility] was concerned about how the wound looked. Ms. Brady has not had any fevers, no chills, no sweats, but does feel a little bit of pain low in the belly and she points down towards the left groin. She also reports she has been passing quite a bit of gas. She has not sustained a fall or any other particular injury, but the [facility] has tried to put a dressing over the hip and with trying to apply the dressing, there has been some twisting involved and that has caused some soreness. She otherwise has been able to participate with PT, get up in about and has been progressing where she can get up and get to the bathroom on her own, but apparently is not yet safe enough to actually go home. PHYSICAL EXAM: Left hip: Inspection of the hip finds one intact blood blister approximately 1.5 cm in length by 1 cm in width towards the distal end of the incision, but a good 3 to 4 cm away from the incision itself. There are 3 other broken blood blisters, which are dried and have a Xeroform dressing adhered to them. The incision itself looks benign with a little bit of wispy erythema about the skin over the hip. From the inferior one third of the incision coming downwards for a good 20 cm, she has a light ecchymosis and swelling. She was tender as I palpate in that area. She has mild warmth to the entirety of the hip, but not any particular heat. She can easily maneuver where she can roll on to her right side moving her left leg spontaneously so I can look at her incision. Similarly, I can easily internally and externally rotate and she has no pain with hip motion. DIAGNOSTIC STUDIES/LAB DATA: X-rays: X-rays of the left hip and AP pelvis were taken here at [facility]. It can be seen she has a quite a bit of gas as well as stool as well as some dilated loops of bowel in the pelvis. The hip itself appears to be integrating nicely as there is no line between the acetabular implant and her bone. There has been no settling and no shifting of the components. IMPRESSION: 1. Hematoma, left hip. 2. Tape reaction, skin over left hip. PLAN/RECOMMENDATIONS: I reassured Ms. Brady and her family that she does not have a deep infection. She does have some irritation of the skin, which is very common, especially with application of tape and then a hematoma forming as the stretching pulls on the skin, causing those blood blisters. Those also can be very tender and painful. We talked a bit about how she should be progressing and she absolutely has been, as she is moving better and is able to do more activities. She is hoping to get home this week. We also talked about an antibiotic, in that I am not convinced it is absolutely necessary, but to a certain degree, it can be reassuring and can definitely help with anything superficial that may be developing. After talking about an antibiotic, she was started with Clindamycin. She should continue with the Eliquis as well as her bowel regimen, as I believe that is giving her her current issues. I would also let Dr. Mckeon know that she was seen in the ER today. [id number]/CPS #: [id number] MTDD
== END 2019-02-24 09:19 | disposition home or self-care (01) ==
LOC: ED 04:27
DX: M25.552 Pain in left hip (principal); M96.840 Postprocedural hematoma of a musculoskeletal structure following a musculoskeletal system procedure; L53.9 Erythematous condition, unspecified; Z96.642 Presence of left artificial hip joint; I10 Essential (primary) hypertension; Z88.1 Allergy status to other antibiotic agents; Z91.040 Latex allergy status; Z88.0 Allergy status to penicillin; Z88.2 Allergy status to sulfonamides; Z88.8 Allergy status to other drugs, medicaments and biological substances; Z91.048 Other nonmedicinal substance allergy status
CPT/HCPCS: 36415; 80048; 83605; 85025; 86140; 99283